=== PATIENT | female | born 1945 | race Caucasian/White ===

== ENCOUNTER 2023-04-19 09:29 | Inpatient (IN) | payer MEDICARE, BC, SELFPAY ==
[2023-04-19] VITALS (9 sets, daily range): BP systolic 114–152; BP diastolic 63–87; PULSE 83–96; RESP 16–18; TEMP 35.9–36.9; O2SAT 82–97; BMI 21.9
--- NOTE | 2023-04-19 09:53 | ED.NURSE ---
patient stated is a smoker of 1 ppd and is also a drinker of 1-2 drinks nightly. has decided to stop all medications and has not been taking for sometime. stated just got sick of taking medications and you go to the doctor and keep adding medications.
--- NOTE | 2023-04-19 10:11 | CRLHL7_ITS ---
For Patients: As a result of the Century Cures Act, medical imaging exams and procedure reports are released immediately into your electronic medical record. You may view this report before your referring provider. If you have questions, please contact your health care provider. Indication: Fall, left hip pain Technique: Chest 1 view Comparison: None Findings/Impression: Cardiovascular and mediastinum: Normal heart size with atherosclerotic calcification. Lungs and pleural space: Lungs are clear. No sign of infiltrate or mass. No sign of pleural effusion. No pneumothorax. Bones and soft tissues: No acute findings. Dictated by Kenton Cárdenas MD @ 04/19/2023 12:14:10 PM (Electronically Signed)
--- NOTE | 2023-04-19 10:11 | CRLHL7_ITS ---
For Patients: As a result of the Century Cures Act, medical imaging exams and procedure reports are released immediately into your electronic medical record. You may view this report before your referring provider. If you have questions, please contact your health care provider. INDICATION: Trauma. TECHNIQUE: Left hip and pelvic radiographs, 3 views. COMPARISON: None FINDINGS: Acute displaced intertrochanteric fracture of the left femur. The femoral head maintains its normal sphericity and is in normal alignment with the acetabulum. Acetabulum appear unremarkable bilateral. No diastasis of the pubic symphysis. The visualized sacroiliac joints appear unremarkable. No significant soft tissue edema or radiopaque foreign bodies. IMPRESSION: Acute displaced left femoral intertrochanteric fracture. Dictated by Kenney England MD @ 04/19/2023 12:22:10 PM (Electronically Signed)
[2023-04-19] MEDS: ONDANSETRON 2 MG/ML inj 4 MG IVP (10:22)
[2023-04-19] MEDS: fentaNYL 100 MCG/2 ML inj 25 MCG IVP ×2 (10:22→12:24)
[2023-04-19 10:23] LABS: Basophils Absolute Auto 0.01 K/uL (0.00-0.30); Basophils Percent Auto 0.1 % (0.0-3.0); Hematocrit 39.4 % (33.0-51.0); Hemoglobin* 12.9 gm/dL (12.0-16.0); Immature Granulocytes Abs Auto 0.01 K/uL (0.00-0.30); Immature Granulocytes Pct Auto 0.1 %; Lymphocytes Percent Auto 9.1 % (20-44); Mean Corpuscular HGB Conc 33 gm/dL (32-36); Mean Corpuscular Hemoglobin 32 pg (26-34); Mean Corpuscular Volume 97 fL (80-100); Monocytes Percent Auto 5.5 % (0.0-11.0); Neutrophils Percent Auto 85.2 % (42.0-72.0); Platelet Count* 173 K/uL (140-440); RDW Coefficient of Variation % 13.8 % (11.5-15.5); Red Blood Count 4.07 m/uL (4.00-5.20); White Blood Count* 9.13 K/uL (4.50-11.00)
[2023-04-19 10:27] LABS: Slide Review Reflex No
[2023-04-19 10:37] LABS: Chloride* 96 mmol/L (96-114); Potassium* 3.7 mmol/L (3.6-5.1); Sodium* 136 mmol/L (135-149)
[2023-04-19 10:40] LABS: Anion Gap 13 mEq/L (7-15); Blood Urea Nitrogen* 10 mg/dL (7-30); Carbon Dioxide* 27 mmol/L (20-32); Creatinine* 0.8 mg/dL (0.5-1.5); Est. Creatinine Clearance* 34.91; Estimated Glomerular Filt Rate 77 ml/min
[2023-04-19 10:41] LABS: Glucose* 111 mg/dL (60-115)
[2023-04-19 11:03] LABS: Troponin I* < 0.01 ng/mL (0.01-0.04)
--- NOTE | 2023-04-19 11:28 | ED.NURSE ---
Pt sleeping in the room at this time, O2 sats around ~87% on room air. Supplemental O2 NC applied at 1L. notified.
--- NOTE | 2023-04-19 12:38 | CRLHL7_ITS ---
For Patients: As a result of the Cures Act, medical imaging exams and procedure reports are released immediately into your electronic medical record. You may view this report before your referring provider. If you have questions, please contact your health care provider. HISTORY: Proximal femoral fracture. TECHNIQUE: Noncontrast CT of the left hip. COMPARISON: 04/19/2023. FINDINGS: There is an acute comminuted fracture of the left proximal femur with mixed intertrochanteric and femoral neck involvement. Fracture demonstrates up to approximately 1 cm of displacement at the level of the femoral neck and 1.5 cm displacement at the intertrochanteric level. There is no underlying lytic or sclerotic bone tumor apparent. No left acetabular fracture. There is degenerative arthrosis of the hip with chondrocalcinosis. Degenerative arthrosis of the right hip. No right proximal femoral or acetabular fracture is apparent on the axial whole pelvis images. Degenerative changes of the pubic symphysis with chondrocalcinosis. Degenerative changes of the sacroiliac joints. IMPRESSION: 1. Acute comminuted combined intertrochanteric and femoral neck fracture of the left proximal femur. 1 cm displacement at the level of the neck and 1.5 cm displacement the intertrochanteric region. 2. No underlying lytic or sclerotic bone tumor. 3. Left hip joint degenerative arthrosis. Dictated by Joce Yen MD @ 04/19/2023 1:42:52 PM Please note that all CT scans at this facility use dose modulation, iterative reconstruction, and/or weight-based dosing when appropriate to reduce radiation dose to as low as reasonably achievable. Dictated by: Joce Yen MD @ 04/19/2023 13:42:57 (Electronically Signed)
--- NOTE | 2023-04-19 13:41 | ED.NURSE ---
placed 18 fr staley to gravity and drained 25 cc of yellow urine. collected ua and sent to lab.
[2023-04-19 13:47] LABS: Appearance Urine Clear (Clear); Bilirubin Urine 2+ (Negative); Blood Urine 2+ (Negative); Color Urine Yellow (Yellow); Glucose Urine Negative (Negative); Ketones Urine 2+ (Negative); Leukocyte Esterase Urine 3+ (Negative); Nitrite Urine Negative (Negative); Protein Urine 1+ (Negative); Urobilinogen Urine 0.2 (0.2-1.0)
[2023-04-19 14:04] LABS: Amorphous Sediment Urine Few; Bacteria Urine Many; Squamous Epithelial Cell Urine Few (None-Few)
--- NOTE | 2023-04-19 14:56 | PM.IMCN1 ---
Date of Consult Patient: Meseret Patient Consult date: 04/12/23 Requesting Physician: Other (Emergency department) Primary Care Provider: Not a Local Provider Consult Narrative Reason for consult: Acute comminuted fx of left proximal femur, intertroch & femoral neck Narrative: Dominique Quiroz is a 77 year old woman who lives in her home with her . 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 Had severe pain in her left hip at that time. insisted that she come into the hospital for assessment but she refused. helped her to her bed and she has been in bed since. With her condition not improving, she finally agreed to come in. Denies loss of consciousness, striking her head, or sustaining any other injury. Has had increasing difficulty with walking particularly over the last 2 years. Needs a walker to ambulate. Her ambulation has been suboptimal since her 1st stroke a bout 15 years ago. According to patient and she has had at least 1 other stroke over the ensuing 15 years. Additionally patient has had alcohol dependence noted in her medical record at least since 2006. Presently she continues to drink at least 2 shots of vodka every night. Denies alcohol withdrawal. Presumably her unstable gait is affected by her longstanding use of alcohol. Is also being treated with vitamin B12 and folate. Presumably her gait is also affected by vitamin B12 and folate deficiency. Review of Systems Status of ROS: Reports: 10 or more systems reviewed and unremarkable except as noted in History and below Narrative: Denies chest heaviness, pressure, tightness, or pain. Denies syncope or near-syncope. Denies loss of consciousness. Denies cough. Acknowledges long-standing dyspnea with exertion. Denies dyspnea at rest. Denies paroxysmal nocturnal dyspnea orthopnea. Continues to smoke about 1 pack of cigarettes daily. states that she smokes about 1 carton of cigarettes per week. Denies dependent edema. Denies claudication. States bowel and bladder function are satisfactory. No other recent trauma or injury. No other recent infection. She is not certain about her weight loss but as far she knows it has been more stable, but this is only a guess. [facility] Medical History (Updated 04/19/23 @ 15:14 by Arturo Darby MD) Unstable gait ?R26.81 - Unsteadiness on feet (ICD-10) Weight loss ?R63.4 - Abnormal weight loss (ICD-10) Malnutrition ?E46 - Unspecified protein-calorie malnutrition (ICD-10) Closed fracture of first metacarpal bone of left hand ?S62.202A - Unspecified fracture of first metacarpal bone, left hand, initial encounter for closed fracture (ICD-10) Transient ischemic attack ?G45.9 - Transient cerebral ischemic attack, unspecified (ICD-10) Cyst and pseudocyst of pancreas ?K86.2 - Cyst of pancreas (ICD-10) ?K86.3 - Pseudocyst of pancreas (ICD-10) Hyperlipidemia ?E78.5 - Hyperlipidemia, unspecified (ICD-10) Tobacco dependence ?F17.200 - Nicotine dependence, unspecified, uncomplicated (ICD-10) Alcohol dependence ?F10.20 - Alcohol dependence, uncomplicated (ICD-10) Essential hypertension ?I10 - Essential (primary) hypertension (ICD-10) Major depressive disorder ?F32.9 - Major depressive disorder, single episode, unspecified (ICD-10) Folic acid deficiency ?E53.8 - Deficiency of other specified B group vitamins (ICD-10) Vitamin B12 deficiency ?E53.8 - Deficiency of other specified B group vitamins (ICD-10) Vitamin B12 deficiency ?E53.8 - Deficiency of other specified B group vitamins (ICD-10) Constipation ?K59.00 - Constipation, unspecified (ICD-10) Constipation ?K59.00 - Constipation, unspecified (ICD-10) Failure to thrive Hypomagnesemia ?E83.42 - Hypomagnesemia (ICD-10) Cerebral infarction ?I63.9 - Cerebral infarction, unspecified (ICD-10) Surgical History Status post breast lumpectomy ?Z98.890 - Other specified postprocedural states (ICD-10) History of colonoscopy ?Z98.890 - Other specified postprocedural states (ICD-10) H/O tubal ligation ?Z98.51 - Tubal ligation status (ICD-10) Family History Father Cancer Heart disease High blood pressure Mother Heart disease High blood pressure Osteoporosis Stroke Social History Smoking Status: Current every day smoker Do you use any of these nicotine containing products: None Second hand tobacco smoke exposure: No How often do you have a drink containing alcohol: 4 or more times a week How many standard drinks containing alcohol do you have on a typical day: 1 or 2 AUDIT-C Alcohol total score: 4 Non-prescribed substance use: denies use service: No Meds Home Medications and Allergies Home Medications Medication Instructions Recorded Confirmed Type atorvastatin 20 mg tablet 20 mg PO QPM 04/19/23 04/19/23 History cyanocobalamin (vitamin B-12) 1,000 mcg PO DAILY 04/19/23 04/19/23 History 1,000 mcg tablet mirtazapine 7.5 mg tablet 7.5 mg PO QPM 04/19/23 04/19/23 History Home Medication Comments: Folate 1 mg once daily according to the patient Allergies Allergy/AdvReac Type Severity Reaction Status Date / Time No Known Drug Allergies Allergy Verified 04/19/23 09:53 Exam Narrative: Exam Narrative: I examined patient the emergency department. Appears comfortable laying on the exam table. Vision and hearing are grossly normal. Alert and oriented to self, place, time, situation. Anxious but cooperative. Tympanic membranes normal. Midline nasal septum. Oropharynx benign with dentition in fair repair. Does not have icterus or conjunctival injection. Pupils are equally round reactive to light and accommodation. Extraocular muscles are intact. Conjugate gaze. Neck is supple. Midline trachea. No JVD hepatojugular reflux. No carotid bruits. Lungs are clear to auscultation without wheezing, rhonchi, or rales. Heart tones with regular rhythm, normal S1-S2, without murmur, gallop, or rub. Abdomen is thin with active bowel sounds, soft, nontender. Left leg is shorter than the right. Externally rotated left leg. Palpable pulses upper and lower extremities. No focal motor neurologic deficits. Const: Vital Signs, click to edit/add: Vital Signs - 24 hr 04/19/23 09:42 04/19/23 11:00 04/19/23 11:29 Temperature 96.7 F L Pulse Rate [Pulse Oximeter] 96 90 Respiratory Rate 16 16 Blood Pressure [Ri t Upper Arm] 131/87 135/75 Pulse Oximetry 93 90 94 Oxygen Delivery Me thod Room Air Room Air Nasal Cannula Oxygen Flow Rate 1 04/19/23 12:00 04/19/23 13:05 Temperature Pulse Rate [Pulse Oximeter] 83 85 Respiratory Rate 16 16 Blood Pressure [Ri ght Upper Arm] 143/75 H 123/68 Pulse Oximetry 97 94 Oxygen Delivery Me thod Nasal Cannula Nasal Cannula Oxygen Flow Rate 1 1 Documenting provider has reviewed patient's vital signs: yes Labs Labs: Short CBC 04/19/23 Range/Units 10:10 WBC 9.13 (4.50-11.00) K/uL Hgb 12.9 (12.0-16.0) gm/dL Hct 39.4 (33.0-51.0) % Plt Count 173 (140-440) K/uL BMP 04/19/23 10:10 Sodium 136 Potassium 3.7 Chloride 96 Carbon Dioxide 27 BUN 10 Creatinine 0.8 Glucose 111 Calcium 9.0 Cardiac Enzymes 04/19/23 Range/Units 10:10 Troponin I < 0.01 L (0.01-0.04) ng/mL Urine 04/19/23 Range/Units 13:39 Urine Color Yellow (Yellow) Urine Appearance Clear (Clear) Urine pH 6.0 (5.0-8.5) Ur Specific [place] 1.020 (1.000-1.030) Urine Protein 1+ A (Negative) Urine Glucose (UA) Negative (Negative) ECG Attestation: I personally reviewed and interpreted this ECG as follows: Prior ECG tracings: not available for review Interpretation: Normal sinus rhythm without ischemic changes. Imaging Chest x-ray: Attestation: I have reviewed the pertinent imaging results. Radiologist's impression: Lungs are hyperinflated with flattened diaphragms bilaterally suggesting underlying COPD and emphysema. No infiltrates, pleural effusions, pneumothorax, masses. Left hip and pelvic x-ray: Attestation: I have reviewed the pertinent imaging results. Radiologist's impression: FINDINGS: Acute displaced intertrochanteric fracture of the left femur. The femoral head maintains its normal sphericity and is in normal alignment with the acetabulum. Acetabulum appear unremarkable bilateral. No diastasis of the pubic symphysis. The visualized sacroiliac joints appear unremarkable. No significant soft tissue edema or radiopaque foreign bodies. IMPRESSION: Acute displaced left femoral intertrochanteric fracture. CT scan pelvis: Attestation: I have reviewed the pertinent imaging results. Radiologist's impression: IMPRESSION: 1. Acute comminuted combined intertrochanteric and femoral neck fracture of the left proximal femur. 1 cm displacement at the level of the neck and 1.5 cm displacement the intertrochanteric region. 2. No underlying lytic or sclerotic bone tumor. 3. Left hip joint degenerative arthrosis. Assessment and Plan Assessment and plan (1) Fracture of hip, left, closed: Problem comment: - fracture occurred on 04/17/2023, acute comminuted fracture of left proximal femur with mixed intertrochanteric and femoral neck involvement - patient presented for medical assessment on 04/19/2023 - await orthopedic surgery consultation and recommendations Status: Acute (2) Alcohol dependence: Problem comment: - since 2006 - 2 shots of vodka every night - CIWA protocol for now Status: Acute (3) Tobacco dependence: Problem comment: - 1 pack per day - nicotine patch for now Status: Acute (4) Weight loss: Problem comment: - dx 12/26/2022 - 01/10/2023 weight 50.9 kg, BMI 19.26 Status: Acute (5) Unstable gait: Problem comment: - Multifactorial: Alcohol dependence, fully deficiency, vitamin B12 deficiency, and possibly in association with history of stroke as well Status: Acute Plan 1. Await orthopedic surgery consultation and decision as to whether not they will be able to help this patient here in our hospital. If they decide they can then we will admit the patient to the hospital. If they decide that they cannot then the patient will need to be transferred from the emergency department to institution that will be able to help her. 2. Continue with supportive efforts. 3. Physical therapy and occupational therapy consultation. Dental Technology Advisor consultation. 4. Patient requests full resuscitation in the event of cardiopulmonary demise. She designates her as her power of litigation attorney associate for health should that be required. 5. Answered patient's and 's questions their satisfaction. They are agreeable.
--- NOTE | 2023-04-19 15:03 | ED.GENADULT ---
HPI - General Adult General Date Seen: 04/19/23 Chief complaint: Hip Injury/Pain Stated complaint: fall Time Seen by Provider: 04/19/23 09:51 History of Present Illness HPI narrative: This is a 77-year-old female presenting to the ER today with her for evaluation of left hip pain. History is obtained in part from the patient and supplemented by her . She does have a history of previous strokes and generalized weakness. She normally walks at home with a walker. She and her live independently. Two nights ago on Saturday night (not , as they initially reported) she was going to the bathroom. Her legs got weak and gave out and she fell to the floor. She hurt her left hip. She was not able to walk on her left leg because of pain. Her assisted her in getting up into a chair. She has been having a lot of hip pain since then and has not been able to get out of a chair. She did not get up to go to the bathroom yesterday but did eat some meals in her chair. She still not able to walk today. She was resistant to coming to doctor yesterday but today her finally for should come in. She has a small scrape on her right elbow that occurred when her was assisting her to the chair but no other injuries from the fall. Specifically no headache or neck pain. No chest pain. No rib pain. No back pain. No abdominal pain. No numbness or tingling in her leg. She does has lot of hip pain when she tries to move it. Related Data Home Medications Medication Instructions Recorded Confirmed atorvastatin 20 mg tablet 20 mg PO QPM 04/19/23 04/19/23 cyanocobalamin (vitamin B-12) 1,000 mcg PO DAILY 04/19/23 04/19/23 1,000 mcg tablet mirtazapine 7.5 mg tablet 7.5 mg PO QPM 04/19/23 04/19/23 Allergies Allergy/AdvReac Type Severity Reaction Status Date / Time No Known Drug Allergies Allergy Verified 04/19/23 09:53 [facility] Medical History (Updated 04/19/23 @ 15:14 by Arturo Darby MD) Unstable gait ?R26.81 - Unsteadiness on feet (ICD-10) Weight loss ?R63.4 - Abnormal weight loss (ICD-10) Malnutrition ?E46 - Unspecified protein-calorie malnutrition (ICD-10) Closed fracture of first metacarpal bone of left hand ?S62.202A - Unspecified fracture of first metacarpal bone, left hand, initial encounter for closed fracture (ICD-10) Transient ischemic attack ?G45.9 - Transient cerebral ischemic attack, unspecified (ICD-10) Cyst and pseudocyst of pancreas ?K86.2 - Cyst of pancreas (ICD-10) ?K86.3 - Pseudocyst of pancreas (ICD-10) Hyperlipidemia ?E78.5 - Hyperlipidemia, unspecified (ICD-10) Tobacco dependence ?F17.200 - Nicotine dependence, unspecified, uncomplicated (ICD-10) Alcohol dependence ?F10.20 - Alcohol dependence, uncomplicated (ICD-10) Essential hypertension ?I10 - Essential (primary) hypertension (ICD-10) Major depressive disorder ?F32.9 - Major depressive disorder, single episode, unspecified (ICD-10) Folic acid deficiency ?E53.8 - Deficiency of other specified B group vitamins (ICD-10) Vitamin B12 deficiency ?E53.8 - Deficiency of other specified B group vitamins (ICD-10) Vitamin B12 deficiency ?E53.8 - Deficiency of other specified B group vitamins (ICD-10) Constipation ?K59.00 - Constipation, unspecified (ICD-10) Constipation ?K59.00 - Constipation, unspecified (ICD-10) Failure to thrive Hypomagnesemia ?E83.42 - Hypomagnesemia (ICD-10) Cerebral infarction ?I63.9 - Cerebral infarction, unspecified (ICD-10) Surgical History Status post breast lumpectomy ?Z98.890 - Other specified postprocedural states (ICD-10) History of colonoscopy ?Z98.890 - Other specified postprocedural states (ICD-10) H/O tubal ligation ?Z98.51 - Tubal ligation status (ICD-10) Family History Father Cancer Heart disease High blood pressure Mother Heart disease High blood pressure Osteoporosis Stroke Social History Smoking Status: Current every day smoker Do you use any of these nicotine containing products: None Second hand tobacco smoke exposure: No How often do you have a drink containing alcohol: 4 or more times a week How many standard drinks containing alcohol do you have on a typical day: 1 or 2 AUDIT-C Alcohol total score: 4 Non-prescribed substance use: denies use service: No Exam Narrative: Exam Narrative: Constitutional: Appears well-developed and well-nourished. Alert. Conversant, but uncomfortable. Overall, Non toxic. HENT: Head: Atraumatic. Nose: Nose normal. Mouth/Throat: Oral mucosa is clear and moist. no trismus. Pharynx normal. Tonsils symmetric. No tonsillar enlargement, erythema, or exudate. Eyes: Conjunctivae normal. EOM normal. Pupils equal, round, and reactive to light. No scleral icterus. Neck: Normal range of motion. Neck supple. No tracheal deviation present. Cardiovascular: Normal rate, regular rhythm. No gallop. No friction rub. No murmur heard. Symmetric radial and DP artery pulses . Normal cap refill in her injured left leg Pulmonary/Chest: Effort normal. No stridor. No respiratory distress. No wheezes. No rales. No rhonchi . No tenderness. Abdominal: Soft. Bowel sounds normal. No distension. No mass. No tenderness. No rebound. No guarding. Musculoskeletal: RUE: Normal range of motion. No tenderness. No deformity LLE: Left hip tenderness. Distal femur, knee, lower leg, ankle, foot are nontender. She has foreshortening of her left he will suspicious for left hip fracture. No definite internal or external rotation. RLE: Normal range of motion. No edema. No tenderness. No deformity LUE: Normal range of motion. No edema. No tenderness. No deformity Lymph: No cervical adenopathy. Neurological: Alert and oriented to person, place, and time. Normal strength. CN II-VII intact. No sensory deficit. GCS eye subscore is 4. GCS verbal subscore is 5. GCS motor subscore is 6. Normal coordination . Intact distal sensory function and toe wiggling and plantar flexion/dorsiflexion her ankle injury left leg. Skin: Skin is warm and dry. No rash noted. No pallor. Normal capillary refill. Psychiatric: Normal mood. Normal affect. Const: Vital Signs, click to edit/add: Vital Signs - 24 hr 04/19/23 09:42 04/19/23 11:00 04/19/23 11:29 Temperature 96.7 F L Pulse Rate [Pulse Oximeter] 96 90 Respiratory Rate 16 16 Blood Pressure [Ri t Upper Arm] 131/87 135/75 Pulse Oximetry 93 90 94 Oxygen Delivery Me thod Room Air Room Air Nasal Cannula Oxygen Flow Rate 1 04/19/23 12:00 04/19/23 13:05 Temperature Pulse Rate [Pulse Oximeter] 83 85 Respiratory Rate 16 16 Blood Pressure [Ri ght Upper Arm] 143/75 H 123/68 Pulse Oximetry 97 94 Oxygen Delivery Me thod Nasal Cannula Nasal Cannula Oxygen Flow Rate 1 1 Course Vital Signs Vital signs: Initial Vital Signs Temperature 96.7 F L 04/19/23 09:42 Temperature Source Temporal Artery Scan 04/19/23 09:42 Pulse Rate 96 04/19/23 09:42 Respiratory Rate 16 04/19/23 09:42 Blood Pressure 131/87 04/19/23 09:42 Blood Pressure Mean 101 04/19/23 09:42 Blood Pressure Position Supine 04/19/23 09:42 Pulse Oximetry 93 04/19/23 09:42 Oxygen Delivery Method Room Air 04/19/23 09:42 Vital Signs Temperature 96.7 F L 04/19/23 09:42 Pulse Rate 96 04/19/23 09:42 Respiratory Rate 16 04/19/23 09:42 Blood Pressure 131/87 04/19/23 09:42 Pulse Oximetry 93 04/19/23 09:42 Oxygen Delivery Method Room Air 04/19/23 09:42 Temperature 96.7 F L 04/19/23 09:42 Pulse Rate 89 04/19/23 15:32 Respiratory Rate 16 04/19/23 13:05 Blood Pressure 139/77 04/19/23 15:32 Pulse Oximetry 96 04/19/23 15:32 Oxygen Delivery Method Nasal Cannula 04/19/23 15:32 Oxygen Flow Rate 1 04/19/23 15:32 Medications Administered Medications: Discontinued Medications Generic Name Dose Route Start Last Admin Trade Name Freq PRN Reason Stop Dose Admin Fentanyl 25 mcg 04/19/23 10:11 04/19/23 10:22 Fentanyl 100 Mcg/2 Ml Inj IVP 04/19/23 10:12 25 mcg ONCE ONE Administration Fentanyl 25 mcg 04/19/23 11:54 04/19/23 12:24 Fentanyl 100 Mcg/2 Ml Inj IVP 04/19/23 11:55 25 mcg ONCE ONE Administration Ondansetron HCl 4 mg 04/19/23 10:11 04/19/23 10:22 Ondansetron 2 Mg/Ml Inj IVP 04/19/23 10:12 4 mg ONCE ONE Administration Medical Decision Making [facility] Narrative Medical decision making narrative: Very pleasant frail 77-year-old female presenting to the ER today with a ground level fall that occurred 2 days ago when she was walking to the bathroom at night. She has been unable to bear weight on her left hip since then. Clinical exam and x-rays confirm a comminuted left femoral neck and greater trochanter fracture of that left hip. The remainder of her head to try or trauma exam is negative. She is clear that she did not hit her head, has no headache, neck pain, or other traumatic injuries. She is neurovascularly intact in her left leg. She had adequate pain control with 2 small doses of fentanyl-25 mcg each, given here in the ER. Discussed her x-ray imaging with Orthopedics. Initially with the PAs and subsequently with physician, Dr. Neri. They requested additional imaging with extra hip x-ray views and ultimately I hip CT. Dr. Neri indicates that this is a complex unusual fracture pattern but should be operable here at [place]. Plan would be for her to have her operation tomorrow morning. Discussed with hospitalist, Dr. Sheth, who came to the ER to evaluate the patient and will accept for admission. Screening EKG shows sinus rhythm but no definite ischemia. Lab Data Labs: Lab Results 04/19/23 04/19/23 Range/Units 10:10 13:39 WBC 9.13 (4.50-11.00) K/uL RBC 4.07 (4.00-5.20) m/uL Hgb 12.9 (12.0-16.0) gm/dL Hct 39.4 (33.0-51.0) % MCV 97 (80-100) fL MCH 32 (26-34) pg MCHC 33 (32-36) gm/dL RDW Coeff of Penny 13.8 (11.5-15.5) % Plt Count 173 (140-440) K/uL Neut % (Auto) 85.2 H (42.0-72.0) % Lymph % (Auto) 9.1 L (20-44) % [place] % (Auto) 5.5 (0.0-11.0) % Eos % (Auto) 0.0 (0.0-7.0) % Baso % (Auto) 0.1 (0.0-3.0) % Neut # (Auto) 7.80 H (1.7-7.0) K/uL Lymph # (Auto) 0.80 L (0.90-2.90) K/uL [place] # (Auto) 0.50 (0.00-0.90) K/UL Eos # (Auto) 0.00 (0.00-0.50) K/uL Baso # (Auto) 0.01 (0.00-0.30) K/uL Abs Immat Gran (auto) 0.01 (0.00-0.30) K/uL Imm/Tot Granulo (auto) 0.1 % Sodium 136 (135-149) mmol/L Potassium 3.7 (3.6-5.1) mmol/L Chloride 96 (96-114) mmol/L Carbon Dioxide 27 (20-32) mmol/L Anion Gap 13 (7-15) mEq/L BUN 10 (7-30) mg/dL Creatinine 0.8 (0.5-1.5) mg/dL Estimated Creat Clear 34.91 Estimated GFR 77 ml/min Glucose 111 (60-115) mg/dL Calcium 9.0 (8.4-10.6) mg/dL Troponin I < 0.01 L (0.01-0.04) ng/mL Urine Color Yellow (Yellow) Urine Appearance Clear (Clear) Urine pH 6.0 (5.0-8.5) Ur Specific [place] 1.020 (1.000-1.030) Urine Protein 1+ A (Negative) Urine Glucose (UA) Negative (Negative) Urine Ketones 2+ A (Negative) Urine Blood 2+ A (Negative) Urine Nitrite Negative (Negative) Urine Bilirubin 2+ A (Negative) Urine Urobilinogen 0.2 (0.2-1.0) Ur Leukocyte Esterase 3+ A (Negative) Urine RBC 5-10 A (0-2) Urine WBC 2-5 (0-5) Ur Squamous Epith Cells Few (None-Few) Amorphous Sediment Few A (None) Urine Bacteria Many A (None) Imaging Data Chest x-ray: Attestation: I have reviewed the pertinent imaging results. Radiologist's impression: Findings/Impression: Cardiovascular and mediastinum: Normal heart size with atherosclerotic calcification. Lungs and pleural space: Lungs are clear. No sign of infiltrate or mass. No sign of pleural effusion. No pneumothorax. Bones and soft tissues: No acute findings. X-ray left hip: Attestation: I have reviewed the pertinent imaging results. Radiologist's impression: IMPRESSION: Acute displaced left femoral intertrochanteric fracture. CT left hip: Attestation: I have reviewed the pertinent imaging results. Radiologist's impression: IMPRESSION: 1. Acute comminuted combined intertrochanteric and femoral neck fracture of the left proximal femur. 1 cm displacement at the level of the neck and 1.5 cm displacement the intertrochanteric region. 2. No underlying lytic or sclerotic bone tumor. 3. Left hip joint degenerative arthrosis. Discharge Plan Discharge Clinical Impression: Fracture of hip, left, closed Patient Disposition: Admitted As Inpatient Condition: Stable
--- NOTE | 2023-04-19 15:30 | ED.NURSE ---
Report called to M/S RN.
[2023-04-19] MEDS: HYDROmorphone 0.5 mg/0.5 ml inj IVP ×2 (15:59→23:09)
[2023-04-19] MEDS: NICOTINE 14 mg PATCH 1 PATCH TRANSDERMA (15:59)
--- NOTE | 2023-04-19 16:25 | P.ORCN_ITS ---
History of Present Illness HPI Time Seen by Provider: 15:00 Date Seen: 04/19/23 Consult date: 04/19/23 Requesting physician: Arturo Darby Chief complaint: fall Narrative: Dominique is a 77-year-old female who presented to the ER today with her for evaluation of left hip pain. Patient states that pain developed early morning after she sustained a ground level fall and fell onto her left hip. Following the injury, she had significant hip pain with any attempted weight-bearing. She was not able to bear weight and was helped to bed by her . Due to persistent left hip pain that was not improving, she was brought to the emergency room today where x-rays revealed displaced left hip fracture involving the femoral neck in intertrochanteric region of the femur. Prior to the injury, she normally uses a walker for assistance with ambulation in her home. Currently pain is adequately controlled unless she attempts to move her left hip. She denies any other injuries. [facility] Medical History (Updated 04/19/23 @ 16:35 by Raffaele Neri MD) Unstable gait ?R26.81 - Unsteadiness on feet (ICD-10) Weight loss ?R63.4 - Abnormal weight loss (ICD-10) Malnutrition ?E46 - Unspecified protein-calorie malnutrition (ICD-10) Closed fracture of first metacarpal bone of left hand ?S62.202A - Unspecified fracture of first metacarpal bone, left hand, initial encounter for closed fracture (ICD-10) Transient ischemic attack ?G45.9 - Transient cerebral ischemic attack, unspecified (ICD-10) Cyst and pseudocyst of pancreas ?K86.2 - Cyst of pancreas (ICD-10) ?K86.3 - Pseudocyst of pancreas (ICD-10) Hyperlipidemia ?E78.5 - Hyperlipidemia, unspecified (ICD-10) Tobacco dependence ?F17.200 - Nicotine dependence, unspecified, uncomplicated (ICD-10) Alcohol dependence ?F10.20 - Alcohol dependence, uncomplicated (ICD-10) Essential hypertension ?I10 - Essential (primary) hypertension (ICD-10) Major depressive disorder ?F32.9 - Major depressive disorder, single episode, unspecified (ICD-10) Folic acid deficiency ?E53.8 - Deficiency of other specified B group vitamins (ICD-10) Vitamin B12 deficiency ?E53.8 - Deficiency of other specified B group vitamins (ICD-10) Vitamin B12 deficiency ?E53.8 - Deficiency of other specified B group vitamins (ICD-10) Constipation ?K59.00 - Constipation, unspecified (ICD-10) Constipation ?K59.00 - Constipation, unspecified (ICD-10) Failure to thrive Hypomagnesemia ?E83.42 - Hypomagnesemia (ICD-10) Cerebral infarction ?I63.9 - Cerebral infarction, unspecified (ICD-10) Surgical History Status post breast lumpectomy ?Z98.890 - Other specified postprocedural states (ICD-10) History of colonoscopy ?Z98.890 - Other specified postprocedural states (ICD-10) H/O tubal ligation ?Z98.51 - Tubal ligation status (ICD-10) Family History Father Cancer Heart disease High blood pressure Mother Heart disease High blood pressure Osteoporosis Stroke Social History Smoking Status: Current every day smoker Do you use any of these nicotine containing products: None Second hand tobacco smoke exposure: No How often do you have a drink containing alcohol: 4 or more times a week How many standard drinks containing alcohol do you have on a typical day: 1 or 2 AUDIT-C Alcohol total score: 4 Non-prescribed substance use: denies use service: No Meds Home Medications and Allergies Home Medications Medication Instructions Recorded Confirmed Type atorvastatin 20 mg tablet 20 mg PO QPM 04/19/23 04/19/23 History cyanocobalamin (vitamin B-12) 1,000 mcg PO DAILY 04/19/23 04/19/23 History 1,000 mcg tablet mirtazapine 7.5 mg tablet 7.5 mg PO QPM 04/19/23 04/19/23 History Allergies Allergy/AdvReac Type Severity Reaction Status Date / Time No Known Drug Allergies Allergy Verified 04/19/23 09:53 Ortho Exam Narrative Exam Narrative: General: Alert and oriented. In no apparent distress. Musculoskeletal: Left lower extremity is shortened and externally rotated. Unable to move hip secondary to pain. Sensation was intact to light touch throughout the dorsal and plantar aspects of the feet bilaterally. EHL, tibialis anterior, gastrocnemius/soleus were intact bilaterally. 2+ DP pulses bilaterally. Const Vital Signs, click to edit/add: Vital Signs - 24 hr 04/19/23 09:42 04/19/23 11:00 04/19/23 11:29 Temperature 96.7 F L Pulse Rate [Pulse Oximeter] 96 90 Respiratory Rate 16 16 Blood Pressure [Right Upper Arm] 131/87 135/75 Pulse Oximetry 93 90 94 Oxygen Delivery Method Room Air Room Air Nasal Cannula Oxygen Flow Rate 1 04/19/23 12:00 04/19/23 13:05 04/19/23 15:32 Temperature Pulse Rate [Pulse Oximeter] 83 85 89 Respiratory Rate 16 16 Blood Pressure [Right Upper Arm] 143/75 H 123/68 139/77 Pulse Oximetry 97 94 96 Oxygen Delivery Method Nasal Cannula Nasal Cannula Nasal Cannula Oxygen Flow Rate 1 1 1 Results Labs Labs: Laboratory Results - last 48 hr 04/19/23 04/19/23 10:10 13:39 WBC 9.13 RBC 4.07 Hgb 12.9 Hct 39.4 MCV 97 MCH 32 MCHC 33 RDW Coeff of Penny 13.8 Plt Count 173 Neut % (Auto) 85.2 H Lymph % (Auto) 9.1 L [place] % (Auto) 5.5 Eos % (Auto) 0.0 Baso % (Auto) 0.1 Neut # (Auto) 7.80 H Lymph # (Auto) 0.80 L [place] # (Auto) 0.50 Eos # (Auto) 0.00 Baso # (Auto) 0.01 Abs Immat Gran (auto) 0.01 Imm/Tot Granulo (auto) 0.1 Sodium 136 Potassium 3.7 Chloride 96 Carbon Dioxide 27 Anion Gap 13 BUN 10 Creatinine 0.8 Estimated Creat Clear 34.91 Estimated GFR 77 Glucose 111 Calcium 9.0 Troponin I < 0.01 L Urine Color Yellow Urine Appearance Clear Urine pH 6.0 Ur Specific [place] 1.020 Urine Protein 1+ A Urine Glucose (UA) Negative Urine Ketones 2+ A Urine Blood 2+ A Urine Nitrite Negative Urine Bilirubin 2+ A Urine Urobilinogen 0.2 Ur Leukocyte Esterase 3+ A Urine RBC 5-10 A Urine WBC 2-5 Ur Squamous Epith Cells Few Amorphous Sediment Few A Urine Bacteria Many A Diagnostic results Additional Comments: Left hip, and pelvis x-rays and left hip CT scan were reviewed. These were demonstrated a comminuted combined intertrochanteric and femoral neck fracture of the left proximal femur. Mild degenerative changes of both hips. Assessment and Plan Assessment and plan (1) Fracture of hip, left, closed: Problem comment: - fracture occurred on 04/17/2023, acute comminuted fracture of left proximal femur with mixed intertrochanteric and femoral neck involvement - patient presented for medical assessment on 04/19/2023 Status: Acute Assessment and Plan: Patient has displaced, comminuted, combined femoral neck and intertrochanteric fracture of the left hip. Risks and benefits of operative treatment and al ternative to surgery were discussed with the patient and her . Recommendation was subsequently made for surgical intervention consisting of left hip closed reduction internal fixation with a cephalomedullary hip screw to allow for early mobilization and advancement of weight-bearing, decreased pain, and healing of the fracture. Risks of surgery to include, but not limited to, infection, neurovascular injury, malunion, nonunion, hip AVN, DVT, pulmonary embolism, heart attack, stroke, and even were discussed with patient and her all questions were answered. After discussion they were in agreement with plan to proceed with surgery. Patient will be admitted to the hospitalist service this afternoon/evening. She is to remain on bedrest overnight with plan for surgery tomorrow morning. She is to be NPO after midnight for anticipated surgery. Total time spent: Total time spent is greater than 50% in coordination of care (as documented) at patient's floor/unit and/or counseling patient: (2) Alcohol dependence: Problem comment: - since 2006 - 2 shots of vodka every night - CIWA protocol for now Status: Acute Total time spent: Total time spent is greater than 50% in coordination of care (as documented) at patient's floor/unit and/or counseling patient: (3) Tobacco dependence: Problem comment: - 1 pack per day - nicotine patch for now Status: Acute Total time spent: Total time spent is greater than 50% in coordination of care (as documented) at patient's floor/unit and/or counseling patient: (4) Weight loss: Problem comment: - dx 12/26/2022 - 01/10/2023 weight 50.9 kg, BMI 19.26 Status: Acute Total time spent: Total time spent is greater than 50% in coordination of care (as documented) at patient's floor/unit and/or counseling patient: (5) Unstable gait: Problem comment: - Multifactorial: Alcohol dependence, fully deficiency, vitamin B12 deficiency, and possibly in association with history of stroke as well Status: Acute Total time spent: Total time spent is greater than 50% in coordination of care (as documented) at patient's floor/unit and/or counseling patient:
[2023-04-19] MEDS: LACTATED RINGERS 500 ML 500 ML IV (16:45)
[2023-04-19] MEDS: LACTATED RINGERS 1000 ML 1,000 ML 75 ML IV (16:45)
[2023-04-19] MEDS: MIRTAZAPINE 15 MG TABLET 7.5 MG PO ×2 (17:36→20:29)
[2023-04-19] MEDS: ACETAMINOPHEN 325 MG TABLET 650 MG PO (17:36)
[2023-04-19] MEDS: THIAMINE 100 MG TABLET PO (17:36)
--- NOTE | 2023-04-19 18:22 | PC.NURSE ---
Admit [id number]- Patient arrives to unit via stretcher at approximately 1600. Patient given IV pain medication before moving from stretcher to bed. She states she does not have pain when she is not moving. She declines ice pack. at bedside during admission. She is sleepy, rousable. Remains on 1L O2 with saturations ~90%.
[2023-04-19] MEDS: ATORVASTATIN 10 MG TABLET 20 MG PO (20:29)
[2023-04-20] VITALS (30 sets, daily range): BP systolic 93–155; BP diastolic 44–115; PULSE 67–106; RESP 11–24; TEMP 36.2–36.8; O2SAT 88–97
--- NOTE | 2023-04-20 00:40 | PC.NURSE ---
[employer] OFFICER- asked to evaluate pt secondary to low sats lowewst 67% on 3L with large amounts of encouragement to take deep breaths and cough per HS and primary care RN. AWARE
--- NOTE | 2023-04-20 00:42 | PC.NURSE ---
CONTINUED charting for [employer]. notified of things to increase pt to [facility]. Pt has been getting narcs for the pain in her left hip. Scheduled for ORIF this am. Neb given apoorva with out improvement. Pt remains with congested non productive cough which she is unable to expectorate. Merna sat still mid 80. Will OC .
--- NOTE | 2023-04-20 00:46 | CRLHL7_ITS ---
For Patients: As a result of the Cures Act, medical imaging exams and procedure reports are released immediately into your electronic medical record. You may view this report before your referring provider. If you have questions, please contact your health care provider. INDICATION: Low O2 sats. TECHNIQUE: Chest 1 view. COMPARISON: Apr 19, 2023. FINDINGS: Cardiovascular and mediastinum: Cardiomediastinal silhouette is within normal limits. Calcific atherosclerosis of the aorta Lungs and pleural spaces: Right lower lung zone subtle opacities. No evidence of pleural effusion. No pneumothorax identified. Bones and soft tissues: Unremarkable for age. IMPRESSION: Subtle right lower lung zone opacities, may reflect aspiration, infection or atelectasis. Dictated by Manuel Tang MD @ 04/20/2023 1:08:59 AM (Electronically Signed)
[2023-04-20] MEDS: IPRAT-ALBUT 0.5-2.5 MG/3 ML NEB 1 NEB IH ×4 (00:52→18:08)
--- NOTE | 2023-04-20 00:54 | W.THPRO_ITS ---
Progress Note: A&P Assessment and plan (1) Acute respiratory failure: Status: Acute (2) Atelectasis: Status: Acute (3) COPD (chronic obstructive pulmonary disease): Status: Acute Plan Acute respiratory failure with hypoxia Suspected COPD exacerbation Hypoxia with SpO2 73% on 4 lpm w/ good pleth Suspected bronchitis versus early pneumonia based on CXR although atelectasis also a possibility Multifactorial decreased air movement suggested some level of COPD exacerbation Will treat COPD with Solu-Medrol 40 mg x 1 will defer decision regarding additional steroids to a.m. team Scheduled DuoNebs every 6 hours with as needed albuterol Mucinex 600 mg twice daily Obtain ABG, if significant CO2 retention will need BiPAP (should also help atelectasis) otherwise heated high flow Azithromycin 500 mg every 24 hours Ceftriaxone 2 g Q24 hrous ABG 7.4/50/57, compensated suggest more likely atelectasis/infiltrate playing a role in hypoxia rather than severe COPD. Will continue to treat COPD. Start with BiPAP to help atelectasis but will try and transition quickly to heated high flow until outpatient continue bronchial hygiene Alcohol use disorder No signs of withdrawal currently Hip fracture Will try and optimize but may need to delay the surgical repair Full Code Critical care time for management of acute respiratory failure with severe hypoxia requiring aggressive respiratory support. Risk of deterioration with mortality and endorgan damage. Time documented soley spent managing the above patient. Included interpretation of bedside monitor, chest x-ray, ordering labs. Additional respiratory support. As well as reviewing prior records. Total critical care time 37 minutes 0:48 - 1:25 Telehealth Hospitalist-PN: Sub Subjective Interval History: Dominique Quiroz is seen as an Interactive Telehealth visit. Dominique Quiroz is a 77 year old female who was admitted for fall acute comminuted fractures of the left proximal femur, intertrochanteric and femoral neck. She has a past medical history notable for TIA alcohol use disorder, tobacco use disorder, suspected COPD, hypertension. Called for emergent evaluation due to worsening respiratory failure. Initially on 2 L/min with sats in the 90s however she developed worsening respiratory failure with hypoxia in the 60s despite 4 L/min via nasal cannula. The patient does not note any dyspnea but is somewhat sleepy. She denies any chest pain. She does have some hip pain. No fevers or chills. Per nursing she has a weak cough but significant sputum production that she has difficulty clearing Exam Narrative Exam Narrative: Physical Exam GENERAL: ?vital signs reviewed, chronically-ill apearing female, in no distress HEART: Regular rate and rhythm without any rubs, murmurs, or gallops. LUNGS: Tachypneic with decreased air movement. Diffuse rhonchi in all lung ramirez but most notable in upper airways ABDOMEN: Observation from nurse assisted exam, abdomen appears soft, nontender, and nondistended EXTREMITIES: Strength and sensation is observed to be grossly within normal limits in the upper and lower extremities.? No focal strength deficit is observed. SKIN:? Observed warm and dry with color normal Const Vital Signs, click to edit/add: Vital Signs - 24 hr 04/19/23 09:42 04/19/23 11:00 04/19/23 11:29 Temperature 96.7 F L Pulse Rate [Left Dorsalis Pedis] Pulse Rate [Pulse Oximeter] 96 90 Respiratory Rate 16 16 Blood Pressure [Left Arm] Blood Pressure [Right Upper Arm] 131/87 135/75 Pulse Oximetry 93 90 94 Oxygen Delivery Method Room Air Room Air Nasal Cannula Oxygen Flow Rate 1 04/19/23 12:00 04/19/23 13:05 04/19/23 15:32 Temperature Pulse Rate [Left Dorsalis Pedis] Pulse Rate [Pulse Oximeter] 83 85 89 Respiratory Rate 16 16 Blood Pressure [Left Arm] Blood Pressure [Right Upper Arm] 143/75 H 123/68 139/77 Pulse Oximetry 97 94 96 Oxygen Delivery Method Nasal Cannula Nasal Cannula Nasal Cannula Oxygen Flow Rate 1 1 1 04/19/23 16:56 04/19/23 19:00 04/19/23 23:00 Temperature 98.4 F Pulse Rate [Left Dorsalis Pedis] 94 90 90 Pulse Rate [Pulse Oximeter] Respiratory Rate 16 18 18 Blood Pressure [Left Arm] 130/75 114/63 Blood Pressure [Right Upper Arm] Pulse Oximetry 91 88 Oxygen Delivery Method Nasal Cannula Nasal Cannula Oxygen Flow Rate 1 1 04/19/23 23:00 04/19/23 23:00 Temperature 98 F Pulse Rate [Left Dorsalis Pedis] 90 Pulse Rate [Pulse Oximeter] Respiratory Rate 18 16 Blood Pressure [Left Arm] 152/74 H Blood Pressure [Right Upper Arm] Pulse Oximetry 90 90 Oxygen Delivery Method Nasal Cannula Nasal Cannula Oxygen Flow Rate 2 2 Labs Labs: Laboratory Results - last 24 hr 04/19/23 04/19/23 10:10 13:39 WBC 9.13 RBC 4.07 Hgb 12.9 Hct 39.4 MCV 97 MCH 32 MCHC 33 RDW Coeff of Penny 13.8 Plt Count 173 Neut % (Auto) 85.2 H Lymph % (Auto) 9.1 L [place] % (Auto) 5.5 Eos % (Auto) 0.0 Baso % (Auto) 0.1 Neut # (Auto) 7.80 H Lymph # (Auto) 0.80 L [place] # (Auto) 0.50 Eos # (Auto) 0.00 Baso # (Auto) 0.01 Abs Immat Gran (auto) 0.01 Imm/Tot Granulo (auto) 0.1 Sodium 136 Potassium 3.7 Chloride 96 Carbon Dioxide 27 Anion Gap 13 BUN 10 Creatinine 0.8 Estimated Creat Clear 34.91 Estimated GFR 77 Glucose 111 Calcium 9.0 Troponin I < 0.01 L Urine Color Yellow Urine Appearance Clear Urine pH 6.0 Ur Specific [place] 1.020 Urine Protein 1+ A Urine Glucose (UA) Negative Urine Ketones 2+ A Urine Blood 2+ A Urine Nitrite Negative Urine Bilirubin 2+ A Urine Urobilinogen 0.2 Ur Leukocyte Esterase 3+ A Urine RBC 5-10 A Urine WBC 2-5 Ur Squamous Epith Cells Few Amorphous Sediment Few A Urine Bacteria Many A Imaging Chest x-ray: Attestation: I have reviewed the pertinent imaging results. (Chest x-ray with increased opacity in the right lower lobe. Hyperinflated lungs) Radiologist's impression: PENDING Telehealth: Statement Statement Telehealth Visit: Today's History and Physical is provided via interactive telehealth by Abdiel Rosas MD.? Patient is located at [facility].? Provider is located at [facility].? Nursing staff assisted with the patient's exam. The visit being done today meets criteria for a telehealth visit and the patient or patient?s parent/guardian is aware the visit is a telehealth visit. Camera Start Time: 00:48 Camera End Time: 00:56
[2023-04-20 01:06] LABS: ABG PCO2 50 mmHG (35-45); Carboxyhemoglobin* 1.4 % (0.0-5.0); HCO3 ABG 31 mmol/L (21-28); Oxygen Saturation ABG 89 % (92-100); TCO2 ABG 29 mmol/l (21-30)
--- NOTE | 2023-04-20 01:22 | PC.NURSE ---
0100-telehealth monitor in room. MD orders as noted. Lab drawing ABD. Pt moved to CCU3 for bipap with all belongings. Placed on FIO2 50% with large FM-there are no medium in RT room or ED. All cares explained to pt. Asks questions as needed. Sats improved to 90%.
--- NOTE | 2023-04-20 01:33 | PC.NURSE ---
0120 Dr Rosas returning [facility] call for paln of care tonight. Per xray has atelectasis but not too bad. ABG not retaining too much CO2. Keep on bipap until 0230 and then switch over to high flow. Primary care/chg all aware.
[2023-04-20] MEDS: cefTRIAXone 2 GM in 0.9 % SODIUM CHLORIDE Mini-bag 100 ML IVPB (02:28)
[2023-04-20] MEDS: guaiFENesin 600 MG TAB.ER.12H PO ×2 (02:28→20:21)
[2023-04-20] MEDS: METHYLPREDNISOLONE SOD SUCC 40 MG/ML IVP (02:51)
[2023-04-20] MEDS: AZITHROMYCIN 500 MG in 0.9 % SODIUM CHLORIDE 250 ml 250 ML 255 MG IVPB (02:51)
[2023-04-20] MEDS: LACTATED RINGERS 1000 ML 1,000 ML 75 ML IV ×3 (06:10→22:52)
--- NOTE | 2023-04-20 06:32 | PC.NURSE ---
SHIFT NOTE : Pt is alert and oriented with periodic confusion, at one point the pt asked if she was at home and to check the front door. Pt is easily redirected. Pt initially on 1L O2 PNC with oxygen saturations in the mid 80?s, increased to 2L with oxygen saturations 88-90% with help of C&DB. Pt fell asleep and at 2300 VS checks pt oxygen saturations were mid 70?s to mid 80?s despite encouragement to C&DB, pt had a lot of phlegm that she was unable to get out. updated and new orders were received including a neb, pt did not improve after the neb and oxygen saturations were mid to high 70?s, MD updated again and order received to make pt CCU status and place on BiPAP. Pt oxygen saturations were 88-92% on BiPAP. Order received from to change pt over to HFNC at 0230, pt changed to HFNC 20L/50%, oxygen saturations 88-92%, pt tolerated well and was able to cough out moderate amounts of green sputum. Urine output was 50cc, updated, no new orders received. Fermín patent. Tele NSR. Afebrile. Denies CP and N/V. Reports occasional SOB that pt reports has improved since last night. Left hip painful with movement, PRN pain medication given as needed but used sparingly. ?
[2023-04-20 07:06] LABS: Hematocrit 32.9 % (33.0-51.0); Hemoglobin* 10.4 gm/dL (12.0-16.0); Immature Granulocytes Abs Auto 0.03 K/uL (0.00-0.30); Immature Granulocytes Pct Auto 0.3 %; Lymphocytes Percent Auto 2.6 % (20-44); Mean Corpuscular HGB Conc 32 gm/dL (32-36); Mean Corpuscular Hemoglobin 31 pg (26-34); Mean Corpuscular Volume 99 fL (80-100); Monocytes Percent Auto 2.4 % (0.0-11.0); Neutrophils Percent Auto 94.7 % (42.0-72.0); Platelet Count* 135 K/uL (140-440); RDW Coefficient of Variation % 14.2 % (11.5-15.5); Red Blood Count 3.32 m/uL (4.00-5.20)
[2023-04-20 07:11] LABS: Slide Review Reflex No
--- NOTE | 2023-04-20 07:15 | CRLHL7_ITS ---
For Patients: As a result of the Century Cures Act, medical imaging exams and procedure reports are released immediately into your electronic medical record. You may view this report before your referring provider. If you have questions, please contact your health care provider. INDICATION: Hypoxia. COMPARISON: No prior chest CTs available for comparison TECHNIQUE: : CT examination of the chest was performed with the uneventful intravenous administration of 95 cc of Isovue 370 while thin axial sections were obtained from above the apices of the lungs to the lung bases. Please note that all CT scans at this facility use dose modulation, iterative reconstruction, and/or weight-based dosing when appropriate to reduce radiation dose to as low as reasonably achievable. FINDINGS: : HEART and MEDIASTINUM: The heart size is normal. There is no mediastinal or hilar adenopathy or mass. There is no pericardial effusion.Atherosclerotic vascular involve the calcifications PULMONARY ARTERIAL CIRCULATION: There is no visible intraluminal filling defect to suggest pulmonary embolus. LUNGS: Bibasilar atelectasis. There are also slightly more focal opacities at both bases, right greater than left with areas of bronchiolar wall thickening, right greater than left. This is probably due to mild aspiration or bronchial inflammatory disorder. No karel focal consolidation PLEURAL SPACES: There is no pleural effusion, pneumothorax or pleural based mass. VISUALIZED UPPER ABDOMEN: The limited visualized upper abdominal structures appear normal. OSSEOUS STRUCTURES: Age-appropriate appearance. No acute fracture or destructive process. TUBES and LINES: None. IMPRESSION: 1. There is no evidence of acute pulmonary embolus. 2. There is minimal basilar subsegmental atelectasis. 3. Bronchiolar wall thickening of posterobasal bilateral lower lobe bronchi, right greater than left with slightly confluent opacities at both lung bases, right greater than left. This is probably due to mild aspiration or bronchiolar inflammatory disorder. No karel focal consolidation to directly suggest pneumonia 4. Normal pleural spaces Please note that all CT scans at this facility use dose modulation, iterative reconstruction, and/or weight-based dosing when appropriate to reduce radiation dose to as low as reasonably achievable. Dictated by Jorge Locke MD @ 04/20/2023 10:26:08 AM (Electronically Signed)
[2023-04-20 07:34] LABS: Chloride* 99 mmol/L (96-114)
[2023-04-20 07:35] LABS: Potassium* 3.5 mmol/L (3.6-5.1); Sodium* 136 mmol/L (135-149)
[2023-04-20 07:37] LABS: Est. Creatinine Clearance* 34.91; Estimated Glomerular Filt Rate 59 ml/min
[2023-04-20 07:38] LABS: Anion Gap 8 mEq/L (7-15); Blood Urea Nitrogen* 16 mg/dL (7-30); Calcium* 8.2 mg/dL (8.4-10.6); Carbon Dioxide* 29 mmol/L (20-32); Glucose* 99 mg/dL (60-115)
[2023-04-20] MEDS: LACTATED RINGERS 500 ML 500 ML IV ×3 (07:39→19:11)
[2023-04-20 07:40] LABS: HCO3 VBG 31 mmol/L (21-28); PCO2 VBG 52 mmHG (40-50); PO2 VBG 31.9 mmHG (25-47); pH VBG 7.385 (7.32-7.43)
[2023-04-20 07:52] LABS: Troponin I* < 0.01 ng/mL (0.01-0.04)
[2023-04-20] MEDS: HYDROmorphone 0.5 mg/0.5 ml inj IVP (07:57)
[2023-04-20] MEDS: SODIUM CHLORIDE 0.9 % (FLUSH) 10 ML SYRINGE 5 ML IVF ×2 (07:58→20:23)
--- NOTE | 2023-04-20 08:52 | REH.OT ---
OT/PT eval on hold d/t respiratory distress, will evaluate after Hip sx.
--- NOTE | 2023-04-20 11:11 | RESP.RT ---
Patient needing BiPAP on arrival to Hospital, transitioned to HFNC, then NC at 4 Lpm, weaning to 2 Lpm, maintaining SaO2 greather than 88%. PEP with Aerobika with patient used well good chest shake, productive cough promoted whete thick secretions. IS with patient used well, good effort 750 with float in good position.
--- NOTE | 2023-04-20 11:15 | RESP.RT ---
Goal: maintain SaO2 between 85-91%, keeping Oxygen setting lowest possible.
--- NOTE | 2023-04-20 11:53 | CRLHL7_ITS ---
For Patients: As a result of the Cures Act, medical imaging exams and procedure reports are released immediately into your electronic medical record. You may view this report before your referring provider. If you have questions, please contact your health care provider. INDICATION: ORIF left hip pinning. COMPARISON: 04/19/2023. FINDINGS: Six spot intraoperative views were obtained showing over open-reduction internal fixation of the previously described left intertrochanteric fracture with a compression screw and short intramedullary wilder. Fluoroscopy time 78.5 seconds. Dictated by Jaret Mendez MD @ 04/22/2023 11:54:07 AM (Electronically Signed)
--- NOTE | 2023-04-20 12:04 | P.ORPRC_ITS ---
Procedure Note Date of procedure: 04/20/23 Procedure: PREOPERATIVE DIAGNOSIS: 1. Left femur intertrochanteric/femoral neck fracture, closed, mildly displaced POSTOPERATIVE DIAGNOSES: 1. Left femur intertrochanteric/femoral neck fracture PROCEDURE: 1. Left femur intertrochanteric/femoral neck fracture fixation with cephalomedullary nail 2. 49328 - Intraoperative fluoroscopy up to 1 hour SURGEON: Sunil Neri MD [employer] UNDERWRITER: Rachel Munson P.A.-C. An social research assistant was critical for this case to aide in patient positioning, suture manipulation, arm positioning, instrument positioning, and closure. ANESTHESIA: Spinal IMPLANTS: Synthes short TFNA nail: 12 mm X 170 mm x 130 degrees. 85 mm lag screw. 5.0 mm x 38 mm distal interlocking screw EBL: 50 ml COMPLICATIONS: None evident INDICATIONS: Dominique is a 77-year-old female who sustained a ground level fall 2 days ago which resulted in development of left hip pain inability to bear weight. Due to persistent pain, she was seen in the emergency department yesterday where radiographic imaging revealed mildly displaced left femur intertrochanteric and femoral neck fractures. Surgical stabilization of this fracture is recommended to allow for early mobilization and advancement of weight-bearing, decreased pain, and healing of the fracture. Prior to procedure, risks and benefits of the operative and non operative treatment were discussed with the patient and her . After discussion of risks, be nefits, and alternatives of surgery, informed consent was obtained and the operative hip was marked. FINDINGS: Mildly displaced left hip fracture involving the femoral neck and intertrochanteric regions of the proximal femur. PROCEDURE: After obtaining proper medical evaluation determining the patient was medically optimized for surgery, she was brought to the operating room and placed supine on the operating table. Induction of spinal anesthesia undertaken. 2 g IV Ancef was administered within 1 hr incision preoperatively. The patient was then positioned on the Dustin table, and all bony prominences were well padded. Fluoroscopic imaging was utilized to obtain AP and lateral views of the hip and to confirm reduction of the fracture. The operative extremity was then prepped and draped in usual sterile fashion using ChloraPrep. A surgical time- out was performed confirming patient identity surgical site and surgical procedure. A longitudinal incision was made in line with the femur proximal to the greater trochanter. Incision was carried through subcutaneous tissues. Gluteal fascia was split in line with surgical incision. The tip of the greater trochanter was palpated and the guide pin was then placed into the medial tip of the greater trochanter and advanced into the proximal femur. Correct position of the guide pin was confirmed with fluoroscopy in both the AP and lateral planes. This was then overdrilled with the starting Reamer. The guide pin was then removed. A short TFNA nail was then placed into the intramedullary canal of the femur and seated to the correct depth using fluoroscopic guidance. The triple trocar was then applied to the lateral femur, and an incision was made through the skin and ITB band. The triple trocar was placed against the la teral cortex of the proximal femur. This was confirmed fluoroscopically to be in appropriate position. The 3.2 mm guide pin was then placed and confirmed on AP and lateral views with the goal of center center position. For rotational control of the femoral head, a 2nd 3.2 mm guide pin was placed under fluoroscopic guidance. The initial guide pin measured for a 85 mm lag screw. Guide pin was then overdrilled and a 85 mm lag screw was secured into position. The D rotation guide pin was removed. The proximal nail locking screw was tightened down, a then backed off a 1/2 turn. Compression was then applied across the fracture site. The proximal locking screw was then tightened down to statically lock the nail. We then turned our attention to placement of the the distal interlocking screw. The guide for the distal interlock screw was placed on the lateral cortex of the femur after making a small stab incision. The distal interlock hole was drilled with the 4.2 mm drill bit and filled with a distal interlock screw, which measured 38 mm. Final fluoroscopic images of the proximal femur were obtained in AP and lateral planes confirming anatomic reduction of the fracture and exc ellent placement of the nail and screws. At this stage, the wounds were thoroughly irrigated with normal saline. Skin closure was performed with 0 Vicryl for the deep gluteal fascia and IT band. 2- 0 Vicryl and 2-0 Stratafix were utilized for subcutaneous and subcuticular closure, followed by application of Exofin glue. Sterile dressings were applied and patient was transferred off the Dustin table. She was meant awoken from anesthesia and transferred to the PACU in stable condition. POSTOPERATIVE PLAN: 1. Patient will be readmitted to the hospitalist service for perioperative medical management. 2. Mobilize with physical therapy and occupational therapy. - Weight bear as tolerated left lower extremity. 3. Pain control: - Acetaminophen and Oxycodone for pain as needed. -IV pain medications for breakthrough pain -Ice for pain and swelling 4. Postoperative prophylactic antibiotics x2 doses 5. DVT prophylaxis: - Xarelto 10 mg daily for 35 days - Thomas simmons and Lorri 6. Follow-up with ELA Munson in the [facility] in 1-2 weeksfor a wound check.
[2023-04-20] MEDS: CEFAZOLIN 1 GM inj IVP (12:30)
--- NOTE | 2023-04-20 13:53 | PM.IMPN1 ---
Progress Note: A&P Assessment and plan (1) Hypoxic respiratory failure: Problem details: Patient's hypoxic respiratory failure appears to be combination of underlying COPD, opioid use, undiagnosed sleep apnea. Possibly aspiration or atelectasis contributing. Will continue antibiotics for community-acquired pneumonia and supplemental oxygen. Does have some CO2 retention so oxygen therapy will need to be administered cautiously. Discussed with anesthesia in some detail a plan of care for managing perioperative and postoperative respiratory failure. Status: Acute (2) COPD (chronic obstructive pulmonary disease): Problem details: New diagnosis. Nebulizer treatments. Supplemental oxygen and monitor for CO2 retention Status: Acute (3) Fracture of hip, left, closed: Problem details: - fracture occurred on 04/17/2023, acute comminuted fracture of left proximal femur with mixed intertrochanteric and femoral neck involvement - patient presented for medical assessment on 04/19/[address] Neri 04/20/2023 Status: Acute (4) Alcohol dependence: Problem details: - since 2006 - 2 shots of vodka every night - CIWA protocol for now Status: Acute (5) Tobacco dependence: Problem details: - 1 pack per day - nicotine patch for now Status: Acute (6) Weight loss: Problem details: - dx 12/26/2022 - 01/10/2023 weight 50.9 kg, BMI 19.26 Status: Acute (7) Unstable gait: Problem details: - Multifactorial: Alcohol dependence, fully deficiency, vitamin B12 deficiency, and possibly in association with history of stroke as well. Postoperatively will assess mobility. May need jail facility for rehab Status: Acute Plan Continue in-hospital in CCU for management of respiratory failure postoperatively. Continue monitoring for complications of hip fracture and surgery and anesthesia. Monitor for complications of alcohol abuse. Ongoing assessment and treatment of frailty, unstable gait, malnutrition Time Spent With Patient Total time spent: Total time spent today is 100 minutes in critical care evaluation and treatment Subjective Date Seen: 04/20/23 Interval history: 77-year-old female seen in followup of hospitalization for hip fracture. Early morning, April 18 she fell while walking back from the bathroom to her bedroom with her walker she had severe pain in her hip. She tried to manage at home but because she was unable to bear weight due to pain she came to the emergency room yesterday, April 19, for evaluation. She was found to have a left femoral neck an intertrochanteric hip fracture. No other injury was identified. She was not felt to have had a syncopal episode. She reports no other symptoms of illness. She was found to be hypoxic earlier in her emergency department stay. She was on 1-2 L of nasal cannula oxygen yesterday. Early this morning she became quite hypoxic and required transfer to the CCU for BiPAP and high-flow oxygen. Patient tells me that she has not been dyspneic but nurses of clearly documented hypoxia with O2 sats in the 70s and low 80s. She does not have a history of requiring oxygen. She does not have any history of cardiac or pulmonary disease. She is not aware of having sleep apnea. She has been a longstanding cigarette smoker, 1 pack per day. She had chest x-ray and chest CT scan. No obvious pulmonary embolism or pneumonia. Some bibasilar opacities that could reflect aspiration or atelectasis. During the night the patient was on high-flow oxygen primarily. She was receiving 20 L at 50% FiO2 to maintain her sats in the low 90s. This morning when she was awake she was weaned off of high-flow oxygen onto simple nasal cannula 2 L per minute. With this she was able to continue to keep her sats in the low 90s until she fell asleep and her O2 sats dropped into the 80s. She received 1.5 mg of hydromorphone about 11:00 a.m. last night and about 8:00 a.m. this morning. Both those doses of hydromorphone occurred before she became more hypoxic. She reports no other concerns this morning. She is anxious to have her surgery. She is managing her pain from her fracture quite well. Her urine output has been low and she has received a couple boluses of LR 500 mL this morning. Exam Narrative: Exam Narrative: She is alert and oriented to her circumstances she gives her own history. Respirations with diminished breath sounds. No significant wheezing. Rare basilar crackle. Fair to poor air exchange in all lung ramirez. No consolidation. Cardiovascular: S1, S2, regular rate and rhythm. Abdomen: Bowel sounds active. Abdomen is soft without tenderness or mass. Extremities without edema. Good perfusion in all 4 extremities. Const: Vital Signs, click to edit/add: Vital Signs - 24 hr 04/19/23 15:32 04/19/23 16:56 04/19/23 19:00 Temperature 98.4 F Pulse Rate Pulse Rate [Left D orsalis Pedis] 94 90 Pulse Rate [Pulse Oximeter] 89 Respiratory Rate 16 18 Blood Pressure [Le ft Arm] 130/75 114/63 Blood Pressure [Ri ght Upper Arm] 139/77 Pulse Oximetry 96 91 88 Oxygen Delivery Me thod Nasal Cannula Nasal Cannula Nasal Cannula Oxygen Flow Rate 1 1 1 Fraction of Inspir ed Oxygen 04/19/23 19:00 04/19/23 23:00 04/19/23 23:00 Temperature 98.2 F Pulse Rate Pulse Rate [Left D orsalis Pedis] 90 90 Pulse Rate [Pulse Oximeter] Respiratory Rate 18 18 18 Blood Pressure [Le ft Arm] 122/73 Blood Pressure [Ri ght Upper Arm] Pulse Oximetry 90 90 Oxygen Delivery Me thod BiPAP Nasal Cannula Oxygen Flow Rate 2 2 Fraction of Inspir ed Oxygen 04/19/23 23:00 04/19/23 23:00 04/20/23 02:00 Temperature 98 F 98.2 F 98.2 F Pulse Rate Pulse Rate [Left D orsalis Pedis] 90 90 90 Pulse Rate [Pulse Oximeter] Respiratory Rate 16 18 18 Blood Pressure [Le ft Arm] 152/74 H 122/73 122/73 Blood Pressure [Ri ght Upper Arm] Pulse Oximetry 90 82 L 90 Oxygen Delivery Me thod Nasal Cannula BiPAP BiPAP Oxygen Flow Rate 2 2 Fraction of Inspir ed Oxygen 04/20/23 02:30 04/20/23 02:30 04/20/23 03:00 Temperature Pulse Rate 94 Pulse Rate [Left D orsalis Pedis] Pulse Rate [Pulse Oximeter] Respiratory Rate Blood Pressure [Le ft Arm] Blood Pressure [Ri ght Upper Arm] Pulse Oximetry Oxygen Delivery Me thod Oxygen Flow Rate 15 Fraction of Inspir ed Oxygen 50 50 04/20/23 04:00 04/20/23 04:00 04/20/23 06:00 Temperature 97.8 F Pulse Rate Pulse Rate [Left D orsalis Pedis] 86 Pulse Rate [Pulse Oximeter] Respiratory Rate 20 Blood Pressure [Le ft Arm] 114/66 Blood Pressure [Ri ght Upper Arm] Pulse Oximetry 88 Oxygen Delivery Me thod High Flow Nasal Ca nnula Oxygen Flow Rate 20 Fraction of Inspir ed Oxygen 50 50 50 04/20/23 06:00 04/20/23 07:00 04/20/23 07:00 Temperature 97.7 F Pulse Rate 94 Pulse Rate [Left D orsalis Pedis] 78 Pulse Rate [Pulse Oximeter] Respiratory Rate 18 18 Blood Pressure [Le ft Arm] 120/68 Blood Pressure [Ri ght Upper Arm] Pulse Oximetry 91 93 Oxygen Delivery Me thod High Flow Nasal Ca nnula Nasal Cannula Oxygen Flow Rate 20 2 Fraction of Inspir ed Oxygen 50 35 04/20/23 07:00 04/20/23 08:00 04/20/23 08:00 Temperature 98.3 F Pulse Rate Pulse Rate [Left D orsalis Pedis] 78 78 Pulse Rate [Pulse Oximeter] Respiratory Rate 18 18 Blood Pressure [Le ft Arm] 136/88 Blood Pressure [Ri ght Upper Arm] Pulse Oximetry 91 Oxygen Delivery Me thod Nasal Cannula Oxygen Flow Rate 2 Fraction of Inspir ed Oxygen 35 04/20/23 08:00 04/20/23 08:30 04/20/23 10:00 Temperature 98.3 F 98.1 F Pulse Rate Pulse Rate [Left D orsalis Pedis] 78 84 Pulse Rate [Pulse Oximeter] Respiratory Rate 18 24 20 Blood Pressure [Le ft Arm] 136/88 142/87 H Blood Pressure [Ri ght Upper Arm] Pulse Oximetry 93 96 96 Oxygen Delivery Me thod Nasal Cannula Nasal Cannula Nasal Cannula Oxygen Flow Rate 2 2 2 Fraction of Inspir ed Oxygen 04/20/23 11:00 Temperature Pulse Rate 94 Pulse Rate [Left D orsalis Pedis] Pulse Rate [Pulse Oximeter] Respiratory Rate Blood Pressure [Le ft Arm] Blood Pressure [Ri ght Upper Arm] Pulse Oximetry Oxygen Delivery Me thod Oxygen Flow Rate Fraction of Inspir ed Oxygen Documenting provider has reviewed patient's vital signs: yes Labs Labs: Laboratory Results - last 24 hr 04/19/23 04/20/23 04/20/23 13:39 01:00 06:27 WBC 10.60 RBC 3.32 L Hgb 10.4 L Hct 32.9 L MCV 99 MCH 31 MCHC 32 RDW Coeff of Penny 14.2 Plt Count 135 L Neut % (Auto) 94.7 H Lymph % (Auto) 2.6 L Gaston % (Auto) 2.4 Eos % (Auto) 0.0 Baso % (Auto) 0.0 Neut # (Auto) 10.00 H Lymph # (Auto) 0.30 L Gaston # (Auto) 0.30 Eos # (Auto) 0.00 Baso # (Auto) 0.00 Abs Immat Gran (auto) 0.03 Imm/Tot Granulo (auto) 0.3 ABG pH 7.40 ABG pCO2 50 H ABG pO2 57.0 L ABG HCO3 31 H ABG Total CO2 29 ABG O2 Saturation 89 L ABG Base Excess 5.0 H VBG pH VBG pCO2 VBG pO2 VBG HCO3 Carboxyhemoglobin 1.4 Sodium 136 Potassium 3.5 L Chloride 99 Carbon Dioxide 29 Anion Gap 8 BUN 16 Creatinine 1.0 Estimated Creat Clear 34.91 Estimated GFR 59 Glucose 99 Calcium 8.2 L Troponin I < 0.01 L Urine Color Yellow Urine Appearance Clear Urine pH 6.0 Ur Specific [place] 1.020 Urine Protein 1+ A Urine Glucose (UA) Negative Urine Ketones 2+ A Urine Blood 2+ A Urine Nitrite Negative Urine Bilirubin 2+ A Urine Urobilinogen 0.2 Ur Leukocyte Esterase 3+ A Urine RBC 5-10 A Urine WBC 2-5 Ur Squamous Epith Cells Few Amorphous Sediment Few A Urine Bacteria Many A Lab Acknowledgement 04/20/23 04/20/23 07:17 07:37 WBC RBC Hgb Hct MCV MCH MCHC RDW Coeff of Penny Plt Count Neut % (Auto) Lymph % (Auto) Gaston % (Auto) Eos % (Auto) Baso % (Auto) Neut # (Auto) Lymph # (Auto) Gaston # (Auto) Eos # (Auto) Baso # (Auto) Abs Immat Gran (auto) Imm/Tot Granulo (auto) ABG pH ABG pCO2 ABG pO2 ABG HCO3 ABG Total CO2 ABG O2 Saturation ABG Base Excess VBG pH 7.385 VBG pCO2 52 H VBG pO2 31.9 VBG HCO3 31 H Carboxyhemoglobin Sodium Potassium Chloride Carbon Dioxide Anion Gap BUN Creatinine Estimated Creat Clear Estimated GFR Glucose Calcium Troponin I Urine Color Urine Appearance Urine pH Ur Specific [place] Urine Protein Urine Glucose (UA) Urine Ketones Urine Blood Urine Nitrite Urine Bilirubin Urine Urobilinogen Ur Leukocyte Esterase Urine RBC Urine WBC Ur Squamous Epith Cells Amorphous Sediment Urine Bacteria Lab Acknowledgement Test Added Imaging CT scan - chest: Radiologist's impression: INDICATION: Hypoxia. COMPARISON: No prior chest CTs available for comparison TECHNIQUE: : CT examination of the chest was performed with the uneventful intravenous administration of 95 cc of Isovue 370 while thin axial sections were obtained from above the apices of the lungs to the lung bases. Please note that all CT scans at this facility use dose modulation, iterative reconstruction, and/or weight-based dosing when appropriate to reduce radiation dose to as low as reasonably achievable. FINDINGS: : HEART and MEDIASTINUM: The heart size is normal. There is no mediastinal or hilar adenopathy or mass. There is no pericardial effusion.Atherosclerotic vascular involve the calcifications PULMONARY ARTERIAL CIRCULATION: There is no visible intraluminal filling defect to suggest pulmonary embolus. LUNGS: Bibasilar atelectasis. There are also slightly more focal opacities at both bases, right greater than left with areas of bronchiolar wall thickening, right greater than left. This is probably due to mild aspiration or bronchial inflammatory disorder. No karel focal consolidation PLEURAL SPACES: There is no pleural effusion, pneumothorax or pleural based mass. VISUALIZED UPPER ABDOMEN: The limited visualized upper abdominal structures appear normal. OSSEOUS STRUCTURES: Age-appropriate appearance. No acute fracture or destructive process. TUBES and LINES: None. IMPRESSION: 1. There is no evidence of acute pulmonary embolus. 2. There is minimal basilar subsegmental atelectasis. 3. Bronchiolar wall thickening of posterobasal bilateral lower lobe bronchi, right greater than left with slightly confluent opacities at both lung bases, right greater than left. This is probably due to mild aspiration or bronchiolar inflammatory disorder. No karel focal consolidation to directly suggest pneumonia 4. Normal pleural spaces
[2023-04-20] MEDS: BUPIVACAINE 0.5 %/EPI 1:200K 30 ML INJECTION (14:00)
--- NOTE | 2023-04-20 14:20 | P.ANES_ITS ---
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
--- NOTE | 2023-04-20 14:51 | P.NB_ITS ---
Nerve Block Nerve Block Time Seen by Provider: 14:30 Date Seen: 04/20/23 Type of block requested by surgeon for post-operative analgesia: ANIVAL/LFCN Side: left Time out performed: Yes Verification of patient name: Yes Verification of date of : Yes Site marking: site marked Name of person performing procedure: vinny Continuous monitoring Was continuous monitoring of O2 sat, B/P, sales promotion manager, recorded every 15 minutes?: Yes Procedure Checklist: sterile prep and needles Ultrasound guided. Images saved: Yes Medications given in 5ml increments after negative aspiration: Ropivicaine %: 0.5 mL: 20 Needle gauge: 20 Decadron (mg): 10 Precedex (mcg): 50 Patient tolerated procedure well: Yes Block Charges Block Charge (with Pro Fee): Other Periph Nerve Block Use of Ultrasound Machine for Block: Yes- US Guidance/pain block
--- NOTE | 2023-04-20 15:03 | SUR.PHASEI ---
patient met discharge criteria per anesthesia
--- NOTE | 2023-04-20 17:01 | RESP.RT ---
Post surgical; patient on NC 2 Lpm, SaO2 965 decreased to 1 Lpm, SaO2 90%. RR 14-20/minute, breathing regular/easy, patient has a good loose spontaneous cough. HFNC on standby for use tonight with start settings FiO2 25%, Flow 15 Lpm, Temperature 36 decrees (C). Maintain SaO2 between 85-92%. Increase Flow to 20 Lpm, then Oxygen as needed, wean toward morning if possible.
[2023-04-20] MEDS: NICOTINE 14 mg PATCH 1 PATCH TRANSDERMA (18:08)
[2023-04-20] MEDS: THIAMINE 100 MG TABLET PO (18:08)
--- NOTE | 2023-04-20 19:13 | PC.NURSE ---
Patient returned from surgery around 1500 on 2 L of oxygen - O2 sats in the mid 90's on this. Blood pressure stable. Pt using incentive spirometer and aerobika with assistance. Scheduled nebs given. Pt states she has no pain. Dressing to left hip is clean dry and intact. Teds and scds are in place. Kovacs in place - draining light mignon urine. Dr. Liu called due to low urine output. Order received for LR bolus which is currently infusing. Pt able to tolerate a regular diet for dinner - denies nausea.
[2023-04-20] MEDS: CEFAZOLIN 1 GM in 0.9 % SODIUM CHLORIDE Mini-bag 100 ML IVPB (20:20)
[2023-04-20] MEDS: MIRTAZAPINE 15 MG TABLET 7.5 MG PO (20:21)
[2023-04-20] MEDS: SENNOSIDES 1 TAB TABLET 2 TAB PO (20:21)
[2023-04-20] MEDS: ATORVASTATIN 10 MG TABLET 20 MG PO (20:22)
[2023-04-21] VITALS (8 sets, daily range): BP systolic 96–119; BP diastolic 59–89; PULSE 75–104; RESP 16–22; TEMP 36.3–37; O2SAT 90–95
[2023-04-21] MEDS: LACTATED RINGERS 500 ML 500 ML IV ×3 (00:03→15:37)
[2023-04-21] MEDS: ACETAMINOPHEN 325 MG TABLET 650 MG PO ×2 (00:06→07:36)
[2023-04-21] MEDS: IPRAT-ALBUT 0.5-2.5 MG/3 ML NEB 1 NEB IH ×3 (00:06→17:58)
[2023-04-21] MEDS: HYDROmorphone 0.5 mg/0.5 ml inj IVP ×3 (00:06→22:38)
[2023-04-21] MEDS: CEFAZOLIN 1 GM in 0.9 % SODIUM CHLORIDE Mini-bag 100 ML IVPB (04:14)
--- NOTE | 2023-04-21 06:40 | PC.NURSE ---
?-: pleasant and cooperative. Calls appropriately. CIWA scores 0. HFNC @ 20/25, titrated down from 20/30, pt maintaining O2 sats in the low 90s. Moist cough, pt unable to cough up any sputum, encouraging aerobika use. Kovacs patent and draining. Low urine output,?500mL bolus given x 2. Pt removed IV in left forearm, cath intact, restarted fluids in left AC IV. Dressing to left hip CDI. Pt declines active ice to surgical site. c/o pain 11/05, prn Tylenol and dilaudid given, offered relief. ?
[2023-04-21 06:46] LABS: Basophils Absolute Auto 0.01 K/uL (0.00-0.30); Basophils Percent Auto 0.1 % (0.0-3.0); Hematocrit 26.8 % (33.0-51.0); Hemoglobin* 8.6 gm/dL (12.0-16.0); Immature Granulocytes Abs Auto 0.04 K/uL (0.00-0.30); Immature Granulocytes Pct Auto 0.4 %; Lymphocytes Percent Auto 6.7 % (20-44); Mean Corpuscular HGB Conc 32 gm/dL (32-36); Mean Corpuscular Hemoglobin 32 pg (26-34); Mean Corpuscular Volume 99 fL (80-100); Neutrophils Percent Auto 87.8 % (42.0-72.0); Platelet Count* 127 K/uL (140-440); RDW Coefficient of Variation % 14.3 % (11.5-15.5); Red Blood Count 2.71 m/uL (4.00-5.20); White Blood Count* 10.41 K/uL (4.50-11.00)
[2023-04-21 06:48] LABS: Slide Review Reflex No
[2023-04-21 07:01] LABS: Chloride* 101 mmol/L (96-114); Potassium* 3.7 mmol/L (3.6-5.1); Sodium* 136 mmol/L (135-149)
[2023-04-21 07:04] LABS: Anion Gap 5 mEq/L (7-15); Blood Urea Nitrogen* 19 mg/dL (7-30); Carbon Dioxide* 30 mmol/L (20-32); Creatinine* 0.7 mg/dL (0.5-1.5); Est. Creatinine Clearance* 34.91; Estimated Glomerular Filt Rate 90 ml/min; Glucose* 110 mg/dL (60-115)
[2023-04-21 07:05] LABS: Calcium* 8.1 mg/dL (8.4-10.6)
[2023-04-21 08:54] LABS: PCR FLU A Negative PCR FLU A (Negative); PCR FLU B Negative PCR FLU B (Negative); PCR RSV Negative PCR RSV (Negative)
--- NOTE | 2023-04-21 08:54 | PM.ORPN ---
Subjective Subjective Date Seen: 04/21/23 Principal diagnosis: Status postop day 1, left hip IM nail Interval history: Patient reports doing okay. Pain is appropriate through the left lower extremity, worse when she coughs. Breathing has been an issue. Patient is on high-flow oxygen via nasal cannula. No acute events over night. Pain managed with scheduled and PRN medications; she is denying ice as it is too cold. DVT prophylaxis: Rivaroxaban 10 mg once daily, bilateral knee high Thomas stockings, SCDs, walking. Patient has not yet been up walking. Denies fevers, chills, aches, N/V, CP, or lightheadedness. Patient states that she is going home today. Her family is in the room with her. Ortho Exam Narrative Exam Narrative: -Patient appears comfortable in bed, receiving high-flow oxygen via nasal cannula; no apparent acute distress -Alert and oriented times 3 -Operative hip/leg mildly swollen; soft tissues supple; no obvious erythema. Ecchymosis minimal. Warmth appropriate -Surgical dressings clean, dry, intact; no obvious drainage, no erythematous streaking peripheral to the bandage -Bilateral calves soft and supple; no significant swelling, edema, tenderness, erythema, discoloration, warmth, or palpable cords -2+ DP/PT pulses, intact dermatomes and myotomes distally (5/5 strength). Mild numbness about the lateral femoral cutaneous nerve distribution. Const Vital Signs, click to edit/add: Vital Signs - 24 hr 04/20/23 10:00 04/20/23 11:00 04/20/23 14:13 Temperature 98.1 F 97.7 F Pulse Rate 94 93 Pulse Rate [Left Dorsalis Pedis] 84 Pulse Rate [Pulse Oximeter] Respiratory Rate 20 14 Blood Pressure 125/96 H Blood Pressure [Left Arm] 142/87 H Blood Pressure [Right Arm] Pulse Oximetry 96 92 Oxygen Delivery Method Nasal Cannula Nasal Cannula Oxygen Flow Rate 2 4 Fraction of Inspired Oxygen 04/20/23 14:15 04/20/23 14:20 04/20/23 14:25 Temperature 97.7 F 97.7 F 97.7 F Pulse Rate 95 91 90 Pulse Rate [Left Dorsalis Pedis] Pulse Rate [Pulse Oximeter] Respiratory Rate 12 12 12 Blood Pressure 138/115 H 147/83 H 137/74 Blood Pressure [Left Arm] Blood Pressure [Right Arm] Pulse Oximetry 91 91 97 Oxygen Delivery Method Nasal Cannula Nasal Cannula Nasal Cannula Oxygen Flow Rate 4 4 3 Fraction of Inspired Oxygen 04/20/23 14:30 04/20/23 14:35 04/20/23 14:40 Temperature 97.7 F 97.7 F 97.7 F Pulse Rate 83 79 76 Pulse Rate [Left Dorsalis Pedis] Pulse Rate [Pulse Oximeter] Respiratory Rate 12 11 L 12 Blood Pressure 126/85 145/92 H 153/76 H Blood Pressure [Left Arm] Blood Pressure [Right Arm] Pulse Oximetry 93 93 96 Oxygen Delivery Method Nasal Cannula Nasal Cannula Nasal Cannula Oxygen Flow Rate 3 3 2 Fraction of Inspired Oxygen 04/20/23 14:45 04/20/23 14:50 04/20/23 15:00 Temperature 97.7 F 97.3 F L Pulse Rate 68 67 Pulse Rate [Left Dorsalis Pedis] Pulse Rate [Pulse Oximeter] Respiratory Rate 16 14 16 Blood Pressure 155/78 H 146/77 H Blood Pressure [Left Arm] Blood Pressure [Right Arm] Pulse Oximetry 92 97 97 Oxygen Delivery Method Nasal Cannula Nasal Cannula Nasal Cannula Oxygen Flow Rate 2 1 1 Fraction of Inspired Oxygen 04/20/23 15:00 04/20/23 15:00 04/20/23 15:00 Temperature 97.1 F L Pulse Rate 76 Pulse Rate [Left Dorsalis Pedis] 76 77 Pulse Rate [Pulse Oximeter] Respiratory Rate 16 16 Blood Pressure Blood Pressure [Left Arm] Blood Pressure [Right Arm] 132/69 Pulse Oximetry 90 Oxygen Delivery Method Nasal Cannula Oxygen Flow Rate 1 Fraction of Inspired Oxygen 04/20/23 15:15 04/20/23 15:30 04/20/23 16:00 Temperature 97.7 F Pulse Rate Pulse Rate [Left Dorsalis Pedis] 82 77 78 Pulse Rate [Pulse Oximeter] Respiratory Rate 16 16 16 Blood Pressure Blood Pressure [Left Arm] Blood Pressure [Right Arm] 116/66 131/73 131/74 Pulse Oximetry 93 89 89 Oxygen Delivery Method Nasal Cannula Nasal Cannula Nasal Cannula Oxygen Flow Rate 1 1 2 Fraction of Inspired Oxygen 04/20/23 16:30 04/20/23 17:00 04/20/23 19:00 Temperature 97.8 F Pulse Rate Pulse Rate [Left Dorsalis Pedis] 69 80 106 H Pulse Rate [Pulse Oximeter] Respiratory Rate 16 16 16 Blood Pressure Blood Pressure [Left Arm] Blood Pressure [Right Arm] 148/85 H 141/85 H 93/44 L Pulse Oximetry 91 91 96 Oxygen Delivery Method Nasal Cannula Nasal Cannula Nasal Cannula Oxygen Flow Rate 1 1 1 Fraction of Inspired Oxygen 04/20/23 19:00 04/20/23 20:00 04/20/23 21:00 Temperature Pulse Rate 97 Pulse Rate [Left Dorsalis Pedis] 92 96 Pulse Rate [Pulse Oximeter] Respiratory Rate 16 16 Blood Pressure Blood Pressure [Left Arm] Blood Pressure [Right Arm] 96/47 L 115/59 L Pulse Oximetry 91 92 Oxygen Delivery Method Nasal Cannula Nasal Cannula Oxygen Flow Rate 1 1 Fraction of Inspired Oxygen 04/20/23 22:45 04/20/23 22:45 04/20/23 22:45 Temperature Pulse Rate Pulse Rate [Left Dorsalis Pedis] Pulse Rate [Pulse Oximeter] Respiratory Rate 16 16 16 Blood Pressure Blood Pressure [Left Arm] Blood Pressure [Right Arm] Pulse Oximetry 89 89 Oxygen Delivery Method High Flow Nasal Cannula High Flow Nasal Cannula Oxygen Flow Rate 20 20 Fraction of Inspired Oxygen 30 30 04/20/23 22:56 04/21/23 02:00 04/21/23 04:00 Temperature 98.6 F 98 F Pulse Rate 104 H Pulse Rate [Left Dorsalis Pedis] Pulse Rate [Pulse Oximeter] 88 82 Respiratory Rate 16 16 Blood Pressure Blood Pressure [Left Arm] Blood Pressure [Right Arm] 116/64 111/64 Pulse Oximetry 91 94 Oxygen Delivery Method High Flow Nasal Cannula High Flow Nasal Cannula Oxygen Flow Rate 20 20 Fraction of Inspired Oxygen 30 30 04/21/23 05:17 04/21/23 06:00 04/21/23 07:00 Temperature Pulse Rate 75 Pulse Rate [Left Dorsalis Pedis] Pulse Rate [Pulse Oximeter] 87 Respiratory Rate 16 20 Blood Pressure Blood Pressure [Left Arm] Blood Pressure [Right Arm] 119/70 Pulse Oximetry 90 91 Oxygen Delivery Method High Flow Nasal Cannula High Flow Nasal Cannula Oxygen Flow Rate 15 20 Fraction of Inspired Oxygen 25 25 04/21/23 07:00 Temperature 97.4 F L Pulse Rate Pulse Rate [Left Dorsalis Pedis] Pulse Rate [Pulse Oximeter] 101 H Respiratory Rate 20 Blood Pressure Blood Pressure [Left Arm] Blood Pressure [Right Arm] 119/70 Pulse Oximetry 91 Oxygen Delivery Method High Flow Nasal Cannula Oxygen Flow Rate 20 Fraction of Inspired Oxygen 25 Assessment and Plan Assessment and plan (1) Hypoxic respiratory failure: Problem details: Patient's hypoxic respiratory failure appears to be combination of underlying COPD, opioid use, undiagnosed sleep apnea. Possibly aspiration or atelectasis contributing. Will continue antibiotics for community-acquired pneumonia and supplemental oxygen. Does have some CO2 retention so oxygen therapy will need to be administered cautiously. Discussed with anesthesia in some detail a plan of care for managing perioperative and postoperative respiratory failure. Status: Acute (2) COPD (chronic obstructive pulmonary disease): Problem details: New diagnosis. Nebulizer treatments. Supplemental oxygen and monitor for CO2 retention Status: Acute (3) Fracture of hip, left, closed: Problem details: - fracture occurred on 04/17/2023, acute comminuted fracture of left proximal femur with mixed intertrochanteric and femoral neck involvement - patient presented for medical assessment on 04/19/[address] Neri 04/20/2023 Status: Acute (4) Alcohol dependence: Problem details: - since 2006 - 2 shots of vodka every night - CIWA protocol for now Status: Acute (5) Tobacco dependence: Problem details: - 1 pack per day - nicotine patch for now Status: Acute (6) Weight loss: Problem details: - dx 12/26/2022 - 01/10/2023 weight 50.9 kg, BMI 19.26 Status: Acute (7) Unstable gait: Problem details: - Multifactorial: Alcohol dependence, folate deficiency, vitamin B12 deficiency, and possibly in association with history of stroke as well. Postoperatively will assess mobility. Will need custodial facility for rehab Status: Acute Plan - Complete 23 hour perioperative antibiotics. - PT/OT consult for education and assistance - patient will be reluctant to walk. - Social work consult for discharge planning - Prescribed analgesics as needed - balance between respiratory issues an adequate pain control; I would err on side of minimizing narcotic use for pain. - DVT prophylaxis: Rivaroxaban 10 mg once daily,, bilateral knee high Thomas Hose stockings and SCDs - Anticipation is for discharge to SNF once patient remains medically stable, pain is controlled, and they are reasonably safe with mobilization.
[2023-04-21 08:55] LABS: SARS PCR* Negative SARS-CoV-2 (Negative)
[2023-04-21] MEDS: CYANOCOBALAMIN (VITAMIN B-12) 500 MCG TABLET 1000 MCG PO (08:57)
[2023-04-21] MEDS: SENNOSIDES 1 TAB TABLET 2 TAB PO ×2 (08:57→20:05)
[2023-04-21] MEDS: FOLIC ACID 1 MG TABLET PO (08:57)
[2023-04-21] MEDS: guaiFENesin 600 MG TAB.ER.12H PO ×2 (08:58→20:06)
[2023-04-21] MEDS: RIVAROXABAN 10 MG TABLET PO (08:58)
[2023-04-21] MEDS: MULTIVITAMIN/MINERALS 1 TABLET 1 TAB PO (08:58)
[2023-04-21] MEDS: AZITHROMYCIN 500 MG in 0.9 % SODIUM CHLORIDE 250 ml 250 ML 255 MG IVPB (10:30)
[2023-04-21] MEDS: SODIUM CHLORIDE 0.9 % (FLUSH) 10 ML SYRINGE 5 ML IVF ×2 (10:30→20:07)
--- NOTE | 2023-04-21 11:33 | RESP.RT ---
Pt on HFNC, weaned today, currently at Flow of 15/min and FIO2 of 25%. SPO2 92%. Attempted to wean further, however SPO2 decreased to 85%. Continue with aggressive pulmonary hygiene.
--- NOTE | 2023-04-21 13:36 | P.IMPN_ITS ---
Progress Note: A&P Assessment and plan (1) Hypoxic respiratory failure: Problem details: Patient's hypoxic respiratory failure appears to be combination of underlying COPD, opioid use, undiagnosed sleep apnea. Possibly aspiration or atelectasis contributing. Will continue antibiotics for community-acquired pneumonia and supplemental oxygen. Does have some CO2 retention so oxygen therapy will need to be administered cautiously. Discussed with anesthesia in some detail a plan of care for managing perioperative and postoperative respiratory failure. Status: Acute (2) COPD (chronic obstructive pulmonary disease): Problem details: New diagnosis. Nebulizer treatments. Supplemental oxygen and monitor for CO2 retention Status: Acute (3) Fracture of hip, left, closed: Problem details: - fracture occurred on 04/17/2023, acute comminuted fracture of left proximal femur with mixed intertrochanteric and femoral neck involvement - patient presented for medical assessment on 04/19/[address] Neri 04/20/2023 Status: Acute (4) Alcohol dependence: Problem details: Visual hallucinations today - since 2006 - 2 shots of vodka every night - CIWA protocol for now Status: Acute (5) Tobacco dependence: Problem details: - 1 pack per day - nicotine patch for now Status: Acute (6) Weight loss: Problem details: - dx 12/26/2022 - 01/10/2023 weight 50.9 kg, BMI 19.26 Status: Acute (7) Unstable gait: Problem details: - Multifactorial: Alcohol dependence, folate deficiency, vitamin B12 deficiency, and possibly in association with history of stroke as well. Postoperatively will assess mobility. Will need detention facility for rehab Status: Acute (8) Delirium: Problem details: Currently having delirium. Unclear if this is alcohol withdrawal delirium or hospital-acquired delirium or combination of both. Will initially treat with lorazepam and monitor for other complications. Status: Acute (9) Discharge planning issues: Problem details: Patient is anxious to go home. Currently she needs assist of more than 1 person to transfer. Status: Acute Plan Continue in hospital for rehabilitation following hip fracture. Monitor for complications of hip fracture and surgery. Monitor for complications of chronic medical problems including delirium and alcohol withdrawal. Monitor and manage hypoxic respiratory failure. Time Spent With Patient Total time spent: Total time spent today is 50 minutes, 30 minutes in coordination of care and discussing with patient family and other providers management of delirium and hypoxic respiratory failure Subjective Date Seen: 04/21/23 Interval history: 77-year-old female admitted with left femoral neck and intertrochanteric fracture from a fall at home from standing height. She has had hypoxic respiratory failure since admission. On and off of high-flow oxygen. She underwent ORIF with Dr. Neri yesterday. No complications. Postoperatively she continues to have oxygen requirement will with high-flow alternating with regular nasal cannula. She is not dyspneic. She reports no cough or fever. Her pain is adequately controlled. She has developed some delirium today with report of seeing bats in her room. She is anxious to go home. She required assist of 3 to go from bed to chair today. Exam Narrative: Exam Narrative: She is alert and appears in no distress. She is oriented to being in the hospital. Still reporting bats flying in the curtains. Head is without trauma. Eyes normal. Respirations are clear to auscultation. Diminished breath sounds without wheezing. Cardiovascular: S1, S2, regular rate and rhythm. Abdomen: Bowel sounds active. Abdomen is soft without tenderness. She has swelling without obvious bruising redness or drainage on her left hip. Intact pulses and sensation distally. Const: Vital Signs, click to edit/add: Vital Signs - 24 hr 04/20/23 14:13 04/20/23 14:15 04/20/23 14:20 Temperature 97.7 F 97.7 F 97.7 F Pulse Rate 93 95 91 Pulse Rate [Left D orsalis Pedis] Pulse Rate [Pulse Oximeter] Respiratory Rate 14 12 12 Blood Pressure 125/96 H 138/115 H 147/83 H Blood Pressure [Ri ght Arm] Pulse Oximetry 92 91 91 Oxygen Delivery Me thod Nasal Cannula Nasal Cannula Nasal Cannula Oxygen Flow Rate 4 4 4 Fraction of Inspir ed Oxygen 04/20/23 14:25 04/20/23 14:30 04/20/23 14:35 Temperature 97.7 F 97.7 F 97.7 F Pulse Rate 90 83 79 Pulse Rate [Left D orsalis Pedis] Pulse Rate [Pulse Oximeter] Respiratory Rate 12 12 11 L Blood Pressure 137/74 126/85 145/92 H Blood Pressure [Ri ght Arm] Pulse Oximetry 97 93 93 Oxygen Delivery Me thod Nasal Cannula Nasal Cannula Nasal Cannula Oxygen Flow Rate 3 3 3 Fraction of Inspir ed Oxygen 04/20/23 14:40 04/20/23 14:45 04/20/23 14:50 Temperature 97.7 F 97.7 F 97.3 F L Pulse Rate 76 68 67 Pulse Rate [Left D orsalis Pedis] Pulse Rate [Pulse Oximeter] Respiratory Rate 12 16 14 Blood Pressure 153/76 H 155/78 H 146/77 H Blood Pressure [Ri ght Arm] Pulse Oximetry 96 92 97 Oxygen Delivery Me thod Nasal Cannula Nasal Cannula Nasal Cannula Oxygen Flow Rate 2 2 1 Fraction of Inspir ed Oxygen 04/20/23 15:00 04/20/23 15:00 04/20/23 15:00 Temperature Pulse Rate 76 Pulse Rate [Left D orsalis Pedis] 76 Pulse Rate [Pulse Oximeter] Respiratory Rate 16 16 Blood Pressure Blood Pressure [Ri ght Arm] Pulse Oximetry 97 Oxygen Delivery Me thod Nasal Cannula Oxygen Flow Rate 1 Fraction of Inspir ed Oxygen 04/20/23 15:00 04/20/23 15:15 04/20/23 15:30 Temperature 97.1 F L Pulse Rate Pulse Rate [Left D orsalis Pedis] 77 82 77 Pulse Rate [Pulse Oximeter] Respiratory Rate 16 16 16 Blood Pressure Blood Pressure [Ri ght Arm] 132/69 116/66 131/73 Pulse Oximetry 90 93 89 Oxygen Delivery Me thod Nasal Cannula Nasal Cannula Nasal Cannula Oxygen Flow Rate 1 1 1 Fraction of Inspir ed Oxygen 04/20/23 16:00 04/20/23 16:30 04/20/23 17:00 Temperature 97.7 F Pulse Rate Pulse Rate [Left D orsalis Pedis] 78 69 80 Pulse Rate [Pulse Oximeter] Respiratory Rate 16 16 16 Blood Pressure Blood Pressure [Ri ght Arm] 131/74 148/85 H 141/85 H Pulse Oximetry 89 91 91 Oxygen Delivery Me thod Nasal Cannula Nasal Cannula Nasal Cannula Oxygen Flow Rate 2 1 1 Fraction of Inspir ed Oxygen 04/20/23 19:00 04/20/23 19:00 04/20/23 20:00 Temperature 97.8 F Pulse Rate 97 Pulse Rate [Left D orsalis Pedis] 106 H 92 Pulse Rate [Pulse Oximeter] Respiratory Rate 16 16 Blood Pressure Blood Pressure [Ri ght Arm] 93/44 L 96/47 L Pulse Oximetry 96 91 Oxygen Delivery Me thod Nasal Cannula Nasal Cannula Oxygen Flow Rate 1 1 Fraction of Inspir ed Oxygen 04/20/23 21:00 04/20/23 22:45 04/20/23 22:45 Temperature Pulse Rate Pulse Rate [Left D orsalis Pedis] 96 Pulse Rate [Pulse Oximeter] Respiratory Rate 16 16 16 Blood Pressure Blood Pressure [Ri t Arm] 115/59 L Pulse Oximetry 92 89 Oxygen Delivery Me thod Nasal Cannula High Flow Nasal Ca nnula Oxygen Flow Rate 1 20 Fraction of Inspir ed Oxygen 30 04/20/23 22:45 04/20/23 22:56 04/21/23 02:00 Temperature 98.6 F Pulse Rate 104 H Pulse Rate [Left D orsalis Pedis] Pulse Rate [Pulse Oximeter] 88 Respiratory Rate 16 16 Blood Pressure [facility] 116/64 Pulse Oximetry 89 91 Oxygen Delivery Me thod High Flow Nasal Ca nnula High Flow Nasal Ca nnula Oxygen Flow Rate 20 20 Fraction of Inspir ed Oxygen 30 30 04/21/23 04:00 04/21/23 05:17 04/21/23 06:00 Temperature 98 F Pulse Rate 75 Pulse Rate [Left D orsalis Pedis] Pulse Rate [Pulse Oximeter] 82 87 Respiratory Rate 16 16 Blood Pressure Blood Pressure [facility] 111/64 119/70 Pulse Oximetry 94 90 Oxygen Delivery Me thod High Flow Nasal Ca nnula High Flow Nasal Ca nnula Oxygen Flow Rate 20 15 Fraction of Inspir ed Oxygen 30 25 04/21/23 07:00 04/21/23 07:00 04/21/23 07:00 Temperature 97.4 F L Pulse Rate Pulse Rate [Left D orsalis Pedis] Pulse Rate [Pulse Oximeter] 101 H 104 H Respiratory Rate 20 20 20 Blood Pressure Blood Pressure [facility] 119/70 Pulse Oximetry 91 91 Oxygen Delivery Me thod High Flow Nasal Ca nnula High Flow Nasal Ca nnula Oxygen Flow Rate 20 20 Fraction of Inspir ed Oxygen 25 25 Labs Labs: Laboratory Results - last 24 hr 04/21/23 04/21/23 05:54 07:50 WBC 10.41 RBC 2.71 L Hgb 8.6 L Hct 26.8 L MCV 99 MCH 32 MCHC 32 RDW Coeff of Penny 14.3 Plt Count 127 L Neut % (Auto) 87.8 H Lymph % (Auto) 6.7 L [place] % (Auto) 5.0 Eos % (Auto) 0.0 Baso % (Auto) 0.1 Neut # (Auto) 9.10 H Lymph # (Auto) 0.70 L [place] # (Auto) 0.50 Eos # (Auto) 0.00 Baso # (Auto) 0.01 Abs Immat Gran (auto) 0.04 Imm/Tot Granulo (auto) 0.4 Sodium 136 Potassium 3.7 Chloride 101 Carbon Dioxide 30 Anion Gap 5 L BUN 19 Creatinine 0.7 Estimated Creat Clear 34.91 Estimated GFR 90 Glucose 110 Calcium 8.1 L SARS-CoV-2 (PCR) Negative SARS-CoV-2 Influenza Type A (PCR) Negative PCR FLU A Influenza Type B (PCR) Negative PCR FLU B RSV (PCR) Negative PCR RSV
[2023-04-21] MEDS: LACTATED RINGERS 1000 ML 1,000 ML 75 ML IV (15:34)
--- NOTE | 2023-04-21 15:53 | PC.NURSE ---
Pt friendly and cooperative, occasional confusion and reports of visual hallucinations including bats on the privacy curtain and mice on the floor. Pt has so far been easily reoriented. VS WNL. She spend several hours in the chair this afternoon, transferring with heavy assist x2. Needs encouragement to bear weight to surgical leg. Urine output continues to be low, 175cc this shift. 500cc LR bolus given and maintenance fluids continue to run. Encouraging PO fluid intake. Surgical dressing to left hip C,D,&I, Active ice as tolerated.
[2023-04-21] MEDS: THIAMINE 100 MG TABLET PO (17:59)
[2023-04-21] MEDS: NICOTINE 14 mg PATCH 1 PATCH TRANSDERMA (17:59)
[2023-04-21] MEDS: MIRTAZAPINE 15 MG TABLET 7.5 MG PO (20:06)
[2023-04-21] MEDS: ATORVASTATIN 10 MG TABLET 20 MG PO (20:06)
--- NOTE | 2023-04-21 22:51 | PC.NURSE ---
End of shift [id number]: Patient alert, oriented to self and birthdate, noted to have intermittent confusion as to where she is and why. Patient is easily reoriented and redirected. CIWA's 6 and 5 respectively, patient is having intermittent visual hallucinations, patient was seeing mice on the floor and kid's toys, these hallucinations are not disturbing to her. Pain well managed with current regimen, dressing to left hip clean, dry and intact. Continues to require hi flow, patient was on 15/25 but required increase to 20/40 while sleeping. [place] draining clear, pale yellow urine with 1100cc out.
[2023-04-22] VITALS (11 sets, daily range): BP systolic 109–166; BP diastolic 53–100; PULSE 83–106; RESP 16–22; TEMP 36.3–37.1; O2SAT 88–97
[2023-04-22] MEDS: IPRAT-ALBUT 0.5-2.5 MG/3 ML NEB 1 NEB IH ×4 (01:14→18:18)
[2023-04-22] MEDS: cefTRIAXone 2 GM in 0.9 % SODIUM CHLORIDE Mini-bag 100 ML IVPB (01:14)
[2023-04-22 06:49] LABS: Basophils Absolute Auto 0.01 K/uL (0.00-0.30); Basophils Percent Auto 0.1 % (0.0-3.0); Eosinophils Absolute Auto 0.01 K/uL (0.00-0.50); Eosinophils Percent Auto 0.1 % (0.0-7.0); Hematocrit 28.3 % (33.0-51.0); Immature Granulocytes Abs Auto 0.02 K/uL (0.00-0.30); Immature Granulocytes Pct Auto 0.2 %; Lymphocytes Absolute Auto 2.02 K/uL (0.90-2.90); Lymphocytes Percent Auto 24.3 % (20-44); Mean Corpuscular HGB Conc 32 gm/dL (32-36); Mean Corpuscular Hemoglobin 32 pg (26-34); Mean Corpuscular Volume 99 fL (80-100); Monocytes Percent Auto 6.1 % (0.0-11.0); Neutrophils Absolute Auto 5.73 K/uL (1.7-7.0); Neutrophils Percent Auto 69.2 % (42.0-72.0); Platelet Count* 157 K/uL (140-440); RDW Coefficient of Variation % 14.4 % (11.5-15.5); Red Blood Count 2.86 m/uL (4.00-5.20)
[2023-04-22 07:04] LABS: Slide Review Reflex No
[2023-04-22 07:08] LABS: Chloride* 101 mmol/L (96-114); Sodium* 137 mmol/L (135-149)
[2023-04-22 07:10] LABS: Creatinine* 0.6 mg/dL (0.5-1.5); Est. Creatinine Clearance* 34.91; Estimated Glomerular Filt Rate 94 ml/min
[2023-04-22 07:11] LABS: Anion Gap 4 mEq/L (7-15); Blood Urea Nitrogen* 14 mg/dL (7-30); Carbon Dioxide* 32 mmol/L (20-32); Glucose* 82 mg/dL (60-115)
--- NOTE | 2023-04-22 08:32 | CRLHL7_ITS ---
For Patients: As a result of the Cures Act, medical imaging exams and procedure reports are released immediately into your electronic medical record. You may view this report before your referring provider. If you have questions, please contact your health care provider. INDICATION: hypoxia HISTORY: Hypoxia. COMPARISON: CT of the chest, 04/20/2023. TECHNIQUE: Chest, 2 portable views. FINDINGS: There is degenerative arthrosis at both AC joints. Heart size and pulmonary vasculature are normal. There is no acute airspace disease. There is no pneumothorax. The central airway is normal. The osseous structures are intact. IMPRESSION: There is no acute airspace disease. Report called to the pharmacist in charge, 04/22/23, 0959 hours. Dictated by Eligio Brooks MD @ 04/22/2023 10:02:05 AM Dictated by: Eligio Brooks MD @ 04/22/2023 10:02:09 (Electronically Signed)
[2023-04-22] MEDS: OXYCODONE 5 MG TABLET PO ×4 (08:57→20:32)
[2023-04-22] MEDS: MULTIVITAMIN/MINERALS 1 TABLET 1 TAB PO (08:58)
[2023-04-22] MEDS: CYANOCOBALAMIN (VITAMIN B-12) 500 MCG TABLET 1000 MCG PO (08:58)
[2023-04-22] MEDS: FOLIC ACID 1 MG TABLET PO (08:58)
[2023-04-22] MEDS: RIVAROXABAN 10 MG TABLET PO (08:58)
[2023-04-22] MEDS: POTASSIUM BICARB 25 MEQ EFFERVESCENT TAB PO ×3 (08:58→11:16)
[2023-04-22] MEDS: guaiFENesin 600 MG TAB.ER.12H PO ×2 (08:58→20:33)
[2023-04-22] MEDS: SENNOSIDES 1 TAB TABLET 2 TAB PO ×2 (08:58→20:32)
[2023-04-22] MEDS: SODIUM CHLORIDE 0.9 % (FLUSH) 10 ML SYRINGE 5 ML IVF ×2 (08:59→20:34)
[2023-04-22 09:04] LABS: Procalcitonin* 0.35 ng/mL (<0.50)
[2023-04-22 09:12] LABS: NT Pro B Type NatriureticPept* 4720 pg/mL; Troponin I* < 0.01 ng/mL (0.01-0.04)
--- NOTE | 2023-04-22 09:15 | RESP.RT ---
Patient continues on HFNC; increased on previous shift to Flow 20 Lpm, FiO2 40%, temperature 36 degrees (C) to maintain SaO2 >85%. BBS diminished all ramirez with fine crackles all ramirez greater in RLL. Patient to sleepy this AM to do PEP/IS, pulling Oxygen off occasionally decreasing her SaO2 <82%. Goal will be to wean HFNC as patient tolerates.
[2023-04-22 09:48] LABS: HCO3 VBG 34 mmol/L (21-28); PCO2 VBG 49 mmHG (40-50); PO2 VBG 20.5 mmHG (25-47); pH VBG 7.454 (7.32-7.43)
--- NOTE | 2023-04-22 12:46 | P.IMPN_ITS ---
Progress Note: A&P Assessment and plan (1) Hypoxic respiratory failure: Problem details: Patient's hypoxic respiratory failure appears to be combination of underlying COPD, opioid use, undiagnosed sleep apnea. Possibly aspiration or atelectasis contributing. She received 3 days of IV ceftriaxone/azithromycin for possible pneumonia without other clinically obvious signs and symptoms of pneumonia other than hypoxia. No evidence for decompensated heart failure. She has not having marked prolonged expiratory phase or wheezing on respiratory exam today and receives nebs for her COPD. Status: Acute (2) COPD (chronic obstructive pulmonary disease): Problem details: New diagnosis. Nebulizer treatments. Supplemental oxygen and monitor for CO2 retention. Status: Acute (3) Fracture of hip, left, closed: Problem details: - fracture occurred on 04/17/2023, acute comminuted fracture of left proximal femur with mixed intertrochanteric and femoral neck involvement - patient presented for medical assessment on 04/19/[address] Neri 04/20/2023. No apparent postoperative complications Status: Acute (4) Alcohol dependence: Problem details: Visual hallucinations intermittently. I favor alcohol hallucinosis or hospital- acquired delirium. Does not appear to be having alcohol withdrawal delirium with unstable vitals and autonomic instability - since 2006 - 2 shots of vodka every night - CIWA protocol for now Status: Acute (5) Tobacco dependence: Problem details: - 1 pack per day - nicotine patch for now Status: Acute (6) Weight loss: Problem details: - dx 12/26/2022 - 01/10/2023 weight 50.9 kg, BMI 19.26 Status: Acute (7) Unstable gait: Problem details: - Multifactorial: Alcohol dependence, folate deficiency, vitamin B12 deficiency, and possibly in association with history of stroke as well. Postoperatively will assess mobility. Will need care home facility for rehab Status: Acute (8) Delirium: Problem details: Currently having delirium. Unclear if this is alcohol hallucinosis or hospital- acquired delirium or combination of both. Has not required significant lorazepam. Status: Acute (9) Discharge planning issues: Problem details: Patient is anxious to go home. Currently she needs assist of more than 1 person to transfer. Appears she will need care home facility for rehab and management of hypoxia Status: Acute Plan Continue in-hospital to manage hypoxic respiratory failure, delirium, rehab from hip fracture and surgery. Time Spent With Patient Total time spent: Total time spent today is 55 minutes, 40 minutes in coordination of care discussing with patient and and other providers ongoing evaluation management of hypoxia and disposition Subjective Date Seen: 04/22/23 Interval history: 77-year-old female admitted with left femoral neck and intertrochanteric fracture from a fall at home from standing height. She has had hypoxic respiratory failure since admission. On and off of high-flow oxygen. She underwent ORIF with Dr. Neri yesterday. No complications. Postoperatively she continues to have oxygen requirement with high-flow alternating with regular nasal cannula. She is not dyspneic. She reports no cough or fever. Her pain is adequately controlled. She has developed some delirium with occasional report of seeing bats and rats in her room. She is anxious to go home. She required assist of 2 to go from bed to chair today. Overnight she was back on high-flow oxygen. This morning when I see her she is breathing comfortably on room air with O2 sats at 95%. Exam Narrative: Exam Narrative: She is alert and oriented to her circumstances. Respirations with diminished breath sounds but otherwise clear without wheezing rales or rhonchi. Cardiovascular: S1, S2, regular rate and rhythm. Abdomen is soft. Bowel sounds are active. She has intact pulses sensation and motion in both feet and ankles. Const: Vital Signs, click to edit/add: Vital Signs - 24 hr 04/21/23 15:00 04/21/23 15:00 04/21/23 15:00 Temperature 97.9 F Pulse Rate [Pulse Oximeter] 86 86 Respiratory Rate 20 20 20 Blood Pressure [[facility] Arm] 107/89 Pulse Oximetry 95 95 Oxygen Delivery Me thod High Flow Nasal Ca nnula High Flow Nasal Ca nnula Oxygen Flow Rate 15 Fraction of Inspir ed Oxygen 25 04/21/23 19:00 04/22/23 01:00 04/22/23 01:00 Temperature 98.5 F 98.8 F Pulse Rate [Pulse Oximeter] 84 84 84 Respiratory Rate 22 18 18 Blood Pressure [Ri t Arm] 118/65 142/84 H Pulse Oximetry 91 97 Oxygen Delivery Me thod High Flow Nasal Ca nnula High Flow Nasal Ca nnula Oxygen Flow Rate 15 20 Fraction of Inspir ed Oxygen 25 40 04/22/23 01:00 04/22/23 03:00 04/22/23 07:00 Temperature 98.3 F Pulse Rate [Pulse Oximeter] 106 H Respiratory Rate 18 16 20 Blood Pressure [Ri ght Arm] 136/83 Pulse Oximetry 97 96 Oxygen Delivery Me thod High Flow Nasal Ca nnula High Flow Nasal Ca nnula Oxygen Flow Rate 20 20 Fraction of Inspir ed Oxygen 40 30 04/22/23 07:00 04/22/23 07:00 04/22/23 09:00 Temperature 97.6 F 97.6 F Pulse Rate [Pulse Oximeter] 106 H 106 H Respiratory Rate 20 20 20 Blood Pressure [Ri ght Arm] 138/89 138/89 Pulse Oximetry 88 88 88 Oxygen Delivery Me thod High Flow Nasal Ca nnula High Flow Nasal Ca nnula High Flow Nasal Ca nnula Oxygen Flow Rate 20 20 20 Fraction of Inspir ed Oxygen 25 25 25 04/22/23 09:13 04/22/23 11:00 Temperature 97.4 F L Pulse Rate [Pulse Oximeter] 93 Respiratory Rate 22 20 Blood Pressure [Ri ght Arm] 166/100 H Pulse Oximetry 92 95 Oxygen Delivery Me thod High Flow Nasal Ca nnula Nasal Cannula Oxygen Flow Rate 20 2 Fraction of Inspir ed Oxygen 40 Documenting provider has reviewed patient's vital signs: yes Labs Labs: Laboratory Results - last 24 hr 04/22/23 04/22/23 04/22/23 06:00 08:33 09:41 WBC 8.30 RBC 2.86 L Hgb 9.0 L Hct 28.3 L MCV 99 MCH 32 MCHC 32 RDW Coeff of Penny 14.4 Plt Count 157 Neut % (Auto) 69.2 Lymph % (Auto) 24.3 [place] % (Auto) 6.1 Eos % (Auto) 0.1 Baso % (Auto) 0.1 Neut # (Auto) 5.73 Lymph # (Auto) 2.02 [place] # (Auto) 0.50 Eos # (Auto) 0.01 Baso # (Auto) 0.01 Abs Immat Gran (auto) 0.02 Imm/Tot Granulo (auto) 0.2 VBG pH 7.454 H VBG pCO2 49 VBG pO2 20.5 L VBG HCO3 34 H Sodium 137 Potassium 3.0 L Chloride 101 Carbon Dioxide 32 Anion Gap 4 L BUN 14 Creatinine 0.6 Estimated Creat Clear 34.91 Estimated GFR 94 Glucose 82 Calcium 8.0 L Troponin I < 0.01 L NT-Pro-B Natriuret Pep 4720 Procalcitonin 0.35 Lab Acknowledgement Test Added
--- NOTE | 2023-04-22 14:32 | PC.NURSE ---
Shift Note: Pt friendly and cooperative, continues to experience intermittent visual hallucinations but has been easily reoriented. CIWAS unremarkable. VSS, pt successfully weaned to 1L/O2 via NC at rest with SpO2 88-92%. She does need increased flow with activity, 2-3L to use BSC or move to chair. Needs a heavy assist of 2 with GB and walker for ambulation as well as cues to move feet. Pain well controlled with Tylenol and PRN Oxycodone. Encouraging fluid intake, Fermín dia'd this morning and pt has not yet voided.
[2023-04-22] MEDS: ACETAMINOPHEN 325 MG TABLET 650 MG PO (14:45)
[2023-04-22] MEDS: NICOTINE 14 mg PATCH 1 PATCH TRANSDERMA (18:17)
[2023-04-22] MEDS: ATORVASTATIN 10 MG TABLET 20 MG PO (20:32)
[2023-04-22] MEDS: MIRTAZAPINE 15 MG TABLET 7.5 MG PO (20:33)
--- NOTE | 2023-04-22 22:47 | PC.NURSE ---
End of shift report [id number]:Patient alert, oriented to self, date of and month. Pain to left hip reported, well managed with current regimen. Transferred with moderate assist x 4 with gait belt and walker. Patient up to commode and in chair for dinner, patient able to walk 10 feet with assist. O2 at 1L per nasal cannula, denies any shortness of breath.
[2023-04-23] VITALS (9 sets, daily range): BP systolic 115–148; BP diastolic 68–96; PULSE 87–98; RESP 18–22; TEMP 36.6–37.1; O2SAT 83–99
[2023-04-23] MEDS: IPRAT-ALBUT 0.5-2.5 MG/3 ML NEB 1 NEB IH ×5 (00:17→23:27)
[2023-04-23] MEDS: OXYCODONE 5 MG TABLET PO ×3 (02:11→13:53)
--- NOTE | 2023-04-23 06:02 | PC.NURSE ---
[id number]: Patient pleasant and cooperative. Denies visual hallucinations. Requires reminders to use [employer] and IS. Frequent T&R. Continent/incontinent of B&B. A2/pivot to BSC and chair. Measurable L. leg weakness but tolerated well overall. Rates L. leg/hip pain 3-7/10. PRN Oxycodone x1 for relief. Dressing to L. hip C/D/I. CMS intact. O2 sats 87-93% on 2 Lt NC.
[2023-04-23 06:29] LABS: Basophils Absolute Auto 0.01 K/uL (0.00-0.30); Basophils Percent Auto 0.1 % (0.0-3.0); Eosinophils Absolute Auto 0.08 K/uL (0.00-0.50); Eosinophils Percent Auto 0.9 % (0.0-7.0); Hematocrit 31.8 % (33.0-51.0); Hemoglobin* 10.1 gm/dL (12.0-16.0); Immature Granulocytes Abs Auto 0.01 K/uL (0.00-0.30); Immature Granulocytes Pct Auto 0.1 %; Lymphocytes Absolute Auto 2.14 K/uL (0.90-2.90); Lymphocytes Percent Auto 25.4 % (20-44); Mean Corpuscular HGB Conc 32 gm/dL (32-36); Mean Corpuscular Hemoglobin 32 pg (26-34); Mean Corpuscular Volume 100 fL (80-100); Monocytes Percent Auto 5.9 % (0.0-11.0); Neutrophils Percent Auto 67.6 % (42.0-72.0); Platelet Count* 190 K/uL (140-440); Red Blood Count 3.18 m/uL (4.00-5.20); White Blood Count* 8.44 K/uL (4.50-11.00)
[2023-04-23 06:39] LABS: Chloride* 98 mmol/L (96-114); Potassium* 4.4 mmol/L (3.6-5.1); Sodium* 135 mmol/L (135-149)
[2023-04-23 06:42] LABS: Anion Gap 3 mEq/L (7-15); Blood Urea Nitrogen* 12 mg/dL (7-30); Calcium* 8.2 mg/dL (8.4-10.6); Carbon Dioxide* 34 mmol/L (20-32); Creatinine* 0.6 mg/dL (0.5-1.5); Est. Creatinine Clearance* 34.91; Estimated Glomerular Filt Rate 94 ml/min; Glucose* 90 mg/dL (60-115)
[2023-04-23 06:43] LABS: Slide Review Reflex No
[2023-04-23] MEDS: SENNOSIDES 1 TAB TABLET 2 TAB PO ×2 (09:24→20:15)
[2023-04-23] MEDS: MULTIVITAMIN/MINERALS 1 TABLET 1 TAB PO (09:24)
[2023-04-23] MEDS: guaiFENesin 600 MG TAB.ER.12H PO ×2 (09:24→20:16)
[2023-04-23] MEDS: RIVAROXABAN 10 MG TABLET PO (09:24)
[2023-04-23] MEDS: CYANOCOBALAMIN (VITAMIN B-12) 500 MCG TABLET 1000 MCG PO (09:24)
[2023-04-23] MEDS: FOLIC ACID 1 MG TABLET PO (09:24)
[2023-04-23] MEDS: SODIUM CHLORIDE 0.9 % (FLUSH) 10 ML SYRINGE 5 ML IVF ×2 (09:25→20:17)
--- NOTE | 2023-04-23 11:46 | PC.SOCIAL ---
Addendum entered by ARELIS Zaidi 04/23/23 11:54: [facility] is declining pt due to alcohol and tobacco use. 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 Original Note: Discharge planning: Met with pt and regarding d/c plan. Both are in agreement with recommendation for short term rehab stay at a [facility] facility at discharge if covered by insurance. They are requesting placement in a facility in [place] as first choice and a facility in [place] as second choice. Called [facility] and spoke with Cyndie who states they will not have a bed until and that they could evaluate pt for a shared room that will be available for . Called Renetta of [facility] and left message requesting a call back. Faxed information to Renetta and [facility] and awaiting calls back regarding decision on admit. 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
[2023-04-23] MEDS: ACETAMINOPHEN 325 MG TABLET 650 MG PO (13:54)
--- NOTE | 2023-04-23 15:07 | PC.NURSE ---
End of shift: patient alert and oriented x3. Patient up to bedside commode and to the chair with heavy 2 assist. IV SL. patient tolerating a reg diet. at bedside. Plan: needs SNF placement. Patient on RA sating 90-93%.
--- NOTE | 2023-04-23 15:51 | PM.IMPN1 ---
Progress Note: A&P Assessment and plan (1) Hypoxic respiratory failure: Problem details: Patient's hypoxic respiratory failure appears to be combination of underlying COPD, opioid use, undiagnosed sleep apnea. Initial concern about aspiration or atelectasis. Briefly treated with antibiotics: She received 3 days of IV ceftriaxone/azithromycin for possible pneumonia without other clinically obvious signs and symptoms of pneumonia other than hypoxia. No evidence for decompensated heart failure. She has not having marked prolonged expiratory phase or wheezing on respiratory exam today and receives nebs for her COPD. Status: Acute (2) COPD (chronic obstructive pulmonary disease): Problem details: New diagnosis. Nebulizer treatments. Supplemental oxygen and monitor for CO2 retention. Status: Acute (3) Fracture of hip, left, closed: Problem details: - fracture occurred on 04/17/2023, acute comminuted fracture of left proximal femur with mixed intertrochanteric and femoral neck involvement - patient presented for medical assessment on 04/19/[address] Neri 04/20/2023. No apparent postoperative complications Status: Acute (4) Alcohol dependence: Problem details: Visual hallucinations intermittently. I favor this being hospital-acquired delirium as she has had no other evidence of alcohol withdrawal. Could be alcohol withdrawal hallucinosis.. Does not appear to be having alcohol withdrawal delirium since she has normal vitals and no autonomic instability. - since 2006 - 2 shots of vodka every night - CIWA protocol for now Status: Acute (5) Tobacco dependence: Problem details: - 1 pack per day - nicotine patch for now Status: Acute (6) Weight loss: Problem details: - dx 12/26/2022 - 01/10/2023 weight 50.9 kg, BMI 19.26 Status: Acute (7) Unstable gait: Problem details: - Multifactorial: Alcohol dependence, folate deficiency, vitamin B12 deficiency, and possibly in association with history of stroke as well. Postoperatively will assess mobility. Will need [facility] facility for rehab Status: Acute (8) Delirium: Problem details: Currently having delirium. Unclear if this is alcohol hallucinosis or hospital-acquired delirium or combination of both. Has not required significant lorazepam. Status: Acute (9) Discharge planning issues: Problem details: Patient is anxious to go home. Currently she needs assist of more than 1 person to transfer. Appears she will need [facility] facility for rehab and management of hypoxia Status: Acute Plan Continue in hospital pending [facility] facility discharge. Continue to monitor and manage pain, immobility and disability from fracture, delirium and hypoxia Time Spent With Patient Total time spent: Total time spent today is 55 minutes, 35 minutes in coordination of care discussing with patient, family and other providers ongoing management of recovery from hip fracture and hypoxia Subjective Date Seen: 04/23/23 Interval history: 77-year-old female admitted with left femoral neck and intertrochanteric fracture from a fall at home from standing height. She has had hypoxic respiratory failure since admission. On and off of high-flow oxygen. She underwent ORIF with Dr. Neri April 20. No complications. Postoperatively she continues to have oxygen requirement with high-flow alternating with regular nasal cannula. She is not dyspneic. She reports no cough or fever. Her pain is adequately controlled. She has developed some delirium with occasional report of seeing bats and rats in her room. She is anxious to go home. She required assist of 2 to go from bed to chair today. Overnight she continues to require supplemental oxygen but be on room air during the day with O2 sats in the mid 90s. She has no dyspnea. She is receiving supplemental oxygen at night. Exam Narrative: Exam Narrative: She is alert and appears in no distress. She is oriented to her circumstances. Respirations with mildly decreased breath sounds but fair air exchange in all lung ramirez. No marked wheezing rales or rhonchi. Cardiovascular: S1, S2, regular rate and rhythm. Abdomen is soft without tenderness or mass. Left hip has the development of moderate bruising without erythema. Distally she has intact pulses and sensation. No significant edema. Const: Vital Signs, click to edit/add: Vital Signs - 24 hr 04/22/23 17:00 04/22/23 19:00 04/22/23 21:00 Temperature 98.6 F 97.4 F L 97.4 F L Pulse Rate [Pulse Oximeter] 83 101 H 101 H Respiratory Rate 20 22 22 Blood Pressure [Ri ght Arm] 114/64 109/53 L 109/53 L Pulse Oximetry 91 95 95 Oxygen Delivery Me thod Nasal Cannula Nasal Cannula Nasal Cannula Oxygen Flow Rate 1 1 1 Fraction of Inspir ed Oxygen 40 04/23/23 00:09 04/23/23 00:20 04/23/23 03:36 Temperature 98.7 F 98.8 F Pulse Rate [Pulse Oximeter] 87 98 Respiratory Rate 22 22 22 Blood Pressure [Ri ght Arm] 145/86 H 146/76 H Pulse Oximetry 99 99 93 Oxygen Delivery Me thod Nasal Cannula Nasal Cannula Nasal Cannula Oxygen Flow Rate 2.0 1.0 2.0 Fraction of Inspir ed Oxygen 04/23/23 07:00 04/23/23 07:00 04/23/23 07:00 Temperature 97.8 F Pulse Rate [Pulse Oximeter] 95 95 Respiratory Rate 20 20 20 Blood Pressure [Ri ght Arm] 147/88 H Pulse Oximetry 95 95 Oxygen Delivery Me thod Nasal Cannula Nasal Cannula Oxygen Flow Rate 2.0 2.0 Fraction of Inspir ed Oxygen 40 04/23/23 11:00 04/23/23 15:30 04/23/23 15:30 Temperature 97.8 F 98.5 F Pulse Rate [Pulse Oximeter] 94 93 Respiratory Rate 20 18 18 Blood Pressure [Ri ght Arm] 131/96 H 115/68 Pulse Oximetry 94 89 89 Oxygen Delivery Me thod Room Air Room Air Room Air Oxygen Flow Rate 0 Fraction of Inspir ed Oxygen Documenting provider has reviewed patient's vital signs: yes Labs Labs: Laboratory Results - last 24 hr 04/23/23 06:03 WBC 8.44 RBC 3.18 L Hgb 10.1 L Hct 31.8 L MCV 100 MCH 32 MCHC 32 RDW Coeff of Penny 14.0 Plt Count 190 Neut % (Auto) 67.6 Lymph % (Auto) 25.4 [place] % (Auto) 5.9 Eos % (Auto) 0.9 Baso % (Auto) 0.1 Neut # (Auto) 5.70 Lymph # (Auto) 2.14 [place] # (Auto) 0.50 Eos # (Auto) 0.08 Baso # (Auto) 0.01 Abs Immat Gran (auto) 0.01 Imm/Tot Granulo (auto) 0.1 Sodium 135 Potassium 4.4 Chloride 98 Carbon Dioxide 34 H Anion Gap 3 L BUN 12 Creatinine 0.6 Estimated Creat Clear 34.91 Estimated GFR 94 Glucose 90 Calcium 8.2 L
--- NOTE | 2023-04-23 16:29 | PC.SOCIAL ---
Discharge planning: political worker contacted [facility] of [facility] and left a message asking if they had openings for a female bed, short-term rehab stay, as [facility] would be another preference for pt and her . Chucky called back and stated that this worker could send a referral over and they would review it in the morning. political worker faxed the referral for pt over this afternoon. Social work to follow-up as needed.
[2023-04-23] MEDS: NICOTINE 14 mg PATCH 1 PATCH TRANSDERMA (16:32)
--- NOTE | 2023-04-23 17:53 | PC.NURSE ---
Pt pleasant and talkative. Pt assist of two pivot transfer. Pt had no complaints of pain during shift (15-19).?Pt had family at bedside most of shift.
[2023-04-23] MEDS: MIRTAZAPINE 15 MG TABLET 7.5 MG PO (20:14)
[2023-04-23] MEDS: MELATONIN 3 MG TABLET PO (20:14)
[2023-04-23] MEDS: ATORVASTATIN 10 MG TABLET 20 MG PO (20:15)
[2023-04-24] VITALS (8 sets, daily range): BP systolic 125–160; BP diastolic 68–82; PULSE 89–100; RESP 18–20; TEMP 36.5–36.9; O2SAT 88–97
[2023-04-24] MEDS: OXYCODONE 5 MG TABLET PO ×2 (04:49→11:17)
[2023-04-24] MEDS: IPRAT-ALBUT 0.5-2.5 MG/3 ML NEB 1 NEB IH ×4 (05:31→23:51)
--- NOTE | 2023-04-24 06:57 | PC.NURSE ---
19-07: pleasant and cooperative. Calls appropriately. A x 2 pivot to BSC, tolerated fair. c/o pain 7/10 in left hip, prn Oxy given, offered relief. 2x Large BM. Pts O2 sats dropped quickly into the 70s on RA when asleep x1, speech writer went to assess & woke pt, she quickly rebounded to 90% on RA. Continued RA throughout the night & pt O2 maintained >88%. Moist productive cough, pt swallows sputum despite reminders and education. 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
[2023-04-24 06:58] LABS: Basophils Absolute Auto 0.01 K/uL (0.00-0.30); Basophils Percent Auto 0.2 % (0.0-3.0); Eosinophils Absolute Auto 0.08 K/uL (0.00-0.50); Eosinophils Percent Auto 1.3 % (0.0-7.0); Hematocrit 29.3 % (33.0-51.0); Hemoglobin* 9.4 gm/dL (12.0-16.0); Immature Granulocytes Abs Auto 0.05 K/uL (0.00-0.30); Immature Granulocytes Pct Auto 0.8 %; Lymphocytes Absolute Auto 1.28 K/uL (0.90-2.90); Lymphocytes Percent Auto 20.1 % (20-44); Mean Corpuscular HGB Conc 32 gm/dL (32-36); Mean Corpuscular Hemoglobin 32 pg (26-34); Mean Corpuscular Volume 100 fL (80-100); Monocytes Percent Auto 6.6 % (0.0-11.0); Neutrophils Absolute Auto 4.54 K/uL (1.7-7.0); Platelet Count* 192 K/uL (140-440); RDW Coefficient of Variation % 13.9 % (11.5-15.5); Red Blood Count 2.94 m/uL (4.00-5.20); White Blood Count* 6.38 K/uL (4.50-11.00)
[2023-04-24 07:17] LABS: Slide Review Reflex No
[2023-04-24 07:44] LABS: Chloride* 96 mmol/L (96-114)
[2023-04-24 07:45] LABS: Potassium* 3.8 mmol/L (3.6-5.1); Sodium* 132 mmol/L (135-149)
[2023-04-24 07:48] LABS: Anion Gap 4 mEq/L (7-15); Blood Urea Nitrogen* 11 mg/dL (7-30); Calcium* 8.1 mg/dL (8.4-10.6); Carbon Dioxide* 32 mmol/L (20-32); Creatinine* 0.6 mg/dL (0.5-1.5); Est. Creatinine Clearance* 34.91; Estimated Glomerular Filt Rate 94 ml/min; Glucose* 92 mg/dL (60-115)
[2023-04-24] MEDS: MULTIVITAMIN/MINERALS 1 TABLET 1 TAB PO (08:46)
[2023-04-24] MEDS: guaiFENesin 600 MG TAB.ER.12H PO ×2 (08:46→21:30)
[2023-04-24] MEDS: CYANOCOBALAMIN (VITAMIN B-12) 500 MCG TABLET 1000 MCG PO (08:46)
[2023-04-24] MEDS: FOLIC ACID 1 MG TABLET PO (08:46)
[2023-04-24] MEDS: RIVAROXABAN 10 MG TABLET PO (08:46)
[2023-04-24] MEDS: SENNOSIDES 1 TAB TABLET 2 TAB PO ×2 (08:46→21:30)
[2023-04-24] MEDS: SODIUM CHLORIDE 0.9 % (FLUSH) 10 ML SYRINGE 5 ML IVF ×2 (08:47→21:31)
--- NOTE | 2023-04-24 12:37 | PC.SOCIAL ---
Addendum entered by SHELBY Solano 04/24/23 14:43: Discharge planning: Completed Pre-admission screening for pt. PAS#[id number]. Social work to follow-up as needed. Original Note: Discharge planning: Pt has been accepted to [facility] in [place] tomorrow. Pt needs to be there anytime before 2:30pm. Will plan on using non-emergency EMS transport due to hip fracture and two person assistance needed. Social work to follow-up as needed.
--- NOTE | 2023-04-24 13:38 | P.IMPN_ITS ---
Progress Note: A&P Assessment and plan (1) Hypoxic respiratory failure: Problem details: Patient's hypoxic respiratory failure appears to be combination of underlying COPD, opioid use, undiagnosed sleep apnea. Initial concern about aspiration or atelectasis. Briefly treated with antibiotics: She received 3 days of IV ceftriaxone/azithromycin for possible pneumonia without other clinically obvious signs and symptoms of pneumonia other than hypoxia. No evidence for decompensated heart failure. She has not having marked prolonged expiratory phase or wheezing on respiratory exam today and receives nebs for her COPD. Status: Acute (2) COPD (chronic obstructive pulmonary disease): Problem details: New diagnosis. Nebulizer treatments. Supplemental oxygen and monitor for CO2 retention. Status: Acute (3) Fracture of hip, left, closed: Problem details: - fracture occurred on 04/17/2023, acute comminuted fracture of left proximal femur with mixed intertrochanteric and femoral neck involvement - patient presented for medical assessment on 04/19/[address] Neri 04/20/2023. No apparent postoperative complications Status: Acute (4) Alcohol dependence: Problem details: Visual hallucinations intermittently. I favor this being hospital-acquired delirium as she has had no other evidence of alcohol withdrawal. Could be alcohol withdrawal hallucinosis.. Does not appear to be having alcohol withdrawal delirium since she has normal vitals and no autonomic instability. - since 2006 - 2 shots of vodka every night No obvious signs of alcohol withdrawal other than possible visual hallucinations Status: Acute (5) Tobacco dependence: Problem details: - 1 pack per day - nicotine patch for now Status: Acute (6) Weight loss: Problem details: - dx 12/26/2022 - 01/10/2023 weight 50.9 kg, BMI 19.26 Status: Acute (7) Unstable gait: Problem details: - Multifactorial: Alcohol dependence, folate deficiency, vitamin B12 deficiency, and possibly in association with history of stroke as well. Postoperatively will assess mobility. Will need care home facility for rehab Status: Acute (8) Delirium: Problem details: Had visual hallucinations intermittently postoperative. Now resolved. No obvious alcohol withdrawal delirium Status: Acute (9) Discharge planning issues: Problem details: Patient is anxious to go home. Currently she needs assist of more than 1 person to transfer. Appears she will need care home facility for rehab and management of hypoxia Status: Acute Plan Continue in hospital pending discharge to care home facility for ongoing rehab. Continue to monitor hypoxia. Continue therapy to improve mobility. Time Spent With Patient Total time spent: Total time spent today is 35 minutes, 25 minutes in coordination care discussing with patient other providers ongoing management of rehab and hypoxia Subjective Date Seen: 04/24/23 Interval history: 77-year-old female admitted with left femoral neck and intertrochanteric fracture from a fall at home from standing height. She has had hypoxic respiratory failure since admission. On and off of high-flow oxygen. She underwent ORIF with Dr. Sunil Neri April 20. No complications. Postoperatively she had oxygen requirement with high-flow alternating with regular nasal cannula. She is not dyspneic. She reports no cough or fever. Her pain is adequately controlled. She has developed some delirium with occasional report of seeing bats and rats in her room. She is anxious to go home. She required assist of 2 to go from bed to chair today. Last night she was managed without supplemental oxygen overnight and did fairly well with occasional O2 sats into the upper 80s. She reports no dyspnea and O2 sats are low to mid 90s on room air during the day. No further reports of visual hallucinations or delirium. Exam Narrative: Exam Narrative: She is alert and appears in no distress. She is more interactive today and more accepting of need for rehab. Respirations are clear to auscultation with a rare basilar wheeze and crackle. Fair air exchange in all lung ramirez. Cardiovascular: S1, S2, regular rate and rhythm. Abdomen is soft without tenderness or mass. Left hip wound with slight bruising but no erythema or drainage. Distally she has intact pulses and strength and motion. Const: Vital Signs, click to edit/add: Vital Signs - 24 hr 04/23/23 15:30 04/23/23 15:30 04/23/23 19:53 Temperature 98.5 F 98.5 F Pulse Rate [Pulse Oximeter] 93 87 Respiratory Rate 18 18 20 Blood Pressure [Ri ght Arm] 115/68 129/68 Pulse Oximetry 89 89 90 Oxygen Delivery Me thod Room Air Room Air Room Air Oxygen Flow Rate 0 04/23/23 20:41 04/23/23 23:00 04/23/23 23:00 Temperature Pulse Rate [Pulse Oximeter] Respiratory Rate 20 Blood Pressure [Ri ght Arm] Pulse Oximetry 83 L 90 Oxygen Delivery Me thod Room Air Room Air Oxygen Flow Rate 0 04/23/23 23:00 04/24/23 03:00 04/24/23 07:00 Temperature 98.5 F Pulse Rate [Pulse Oximeter] 94 89 95 Respiratory Rate 20 20 20 [facility] 148/90 H Pulse Oximetry 90 88 Oxygen Delivery Me thod Room Air Room Air Oxygen Flow Rate 04/24/23 07:00 04/24/23 07:00 04/24/23 10:34 Temperature 98.5 F 98.3 F Pulse Rate [Pulse Oximeter] 95 100 Respiratory Rate 20 20 Blood Pressure [facility]] 160/82 H 125/69 Pulse Oximetry 96 96 97 Oxygen Delivery Me thod Room Air Room Air Room Air Oxygen Flow Rate 0 Documenting provider has reviewed patient's vital signs: yes Labs Labs: Laboratory Results - last 24 hr 04/24/23 06:21 WBC 6.38 RBC 2.94 L Hgb 9.4 L Hct 29.3 L MCV 100 MCH 32 MCHC 32 RDW Coeff of Penny 13.9 Plt Count 192 Neut % (Auto) 71.0 Lymph % (Auto) 20.1 [place] % (Auto) 6.6 Eos % (Auto) 1.3 Baso % (Auto) 0.2 Neut # (Auto) 4.54 Lymph # (Auto) 1.28 [place] # (Auto) 0.40 Eos # (Auto) 0.08 Baso # (Auto) 0.01 Abs Immat Gran (auto) 0.05 Imm/Tot Granulo (auto) 0.8 Sodium 132 L Potassium 3.8 Chloride 96 Carbon Dioxide 32 Anion Gap 4 L BUN 11 Creatinine 0.6 Estimated Creat Clear 34.91 Estimated GFR 94 Glucose 92 Calcium 8.1 L
--- NOTE | 2023-04-24 14:24 | PC.NURSE ---
End of shift: patient alert and oriented x3. Patient up to bedside commode and to the chair with heavy 2 assist d/t reluctance to put pressure on left leg, and fear of falling. IV SL. patient tolerating a reg diet. at bedside. Plan: patient will go to [facility] via non-emergent transport tomorrow 04/25/23 before 1430. Patient on RA sating 90-93%.
[2023-04-24] MEDS: NICOTINE 14 mg PATCH 1 PATCH TRANSDERMA (16:31)
--- NOTE | 2023-04-24 19:42 | PC.NURSE ---
Shift note [id number]: Pt has been denying pain when asked and declined ice pack when offered this afternoon. VSS and pt noted to be afebrile. Pt pivot transfers with heavy assist of 2. She is scheduled to discharge to [facility] in [place] tomorrow via non-emergent EMS. Surgical incisions to L hip noted to have no s/sx of infection upon inspection. IV SL. Pt continues to tolerate regular diet with approximately 50% food intake with supper. O2 sat 93% on RA. Pt alert & oriented x 3 with intermittent forgetfulness. ?
[2023-04-24] MEDS: ATORVASTATIN 10 MG TABLET 20 MG PO (21:29)
[2023-04-24] MEDS: MIRTAZAPINE 15 MG TABLET 7.5 MG PO (21:29)
[2023-04-24] MEDS: MELATONIN 3 MG TABLET PO (21:30)
[2023-04-25 02:55] VITALS: RESP 16
[2023-04-25 06:00] VITALS: RESP 18
[2023-04-25] MEDS: IPRAT-ALBUT 0.5-2.5 MG/3 ML NEB 1 NEB IH (06:13)
--- NOTE | 2023-04-25 06:40 | PC.NURSE ---
Shift note 23-07: Pt continues to lack motivation and move slowly. L hip inc intact w/ scabbing. Lg BM. Plans to DC to [facility] today via non-emergent transport @ 1030.
[2023-04-25 07:00] VITALS: PULSE 96; RESP 16
[2023-04-25 07:58] VITALS: RESP 16; O2SAT 90
[2023-04-25 07:59] VITALS: BP 121/69; PULSE 96; RESP 16; TEMP 36.5; O2SAT 90
[2023-04-25] MEDS: CYANOCOBALAMIN (VITAMIN B-12) 500 MCG TABLET 1000 MCG PO (09:14)
[2023-04-25] MEDS: guaiFENesin 600 MG TAB.ER.12H PO (09:15)
[2023-04-25] MEDS: MULTIVITAMIN/MINERALS 1 TABLET 1 TAB PO (09:15)
[2023-04-25] MEDS: FOLIC ACID 1 MG TABLET PO (09:15)
[2023-04-25] MEDS: RIVAROXABAN 10 MG TABLET PO (09:15)
[2023-04-25] MEDS: SODIUM CHLORIDE 0.9 % (FLUSH) 10 ML SYRINGE 5 ML IVF (09:16)
--- NOTE | 2023-04-25 09:43 | PC.NURSE ---
Taffy Candy Maker attempted to call [facility] 3 times since 929 in order to give report to SNF. Voicemail left requesting call back.
--- NOTE | 2023-04-25 09:46 | PC.NURSE ---
Supervisor [employer] Mill has attempted to call [facility] in [place] 3 times since 929 to give report to SNF. No option to leave voicemail to call back. Will attempt again before discharge.
--- NOTE | 2023-04-25 10:49 | PC.NURSE ---
Pt discharged to [facility] at 10:38 by non-emergent transport using heavy pivot transfer with assist of 2. Pt alert & oriented x 4 prior to discharge and denied pain when asked. IVs to bilateral arms removed prior to discharge. Pt noted to have one large loose stool this morning. Gas Systems Worker held AM dose of Senna as pt is noted to be taking 4 tabs of this daily and has not taken PRN Oxycodone in nearly 24 hours. VSS and pt afebrile this morning. Lung sounds have been clear to all lobes bilaterally. Gas Systems Worker once again attempted to call [facility] in [place] to give report at this time though phone rings and then states number temporarily unavailable with no option to leave voicemail to request call back. ZULEIKA has faxed discharge paperwork to [facility] in [place].
--- NOTE | 2023-04-25 11:03 | PC.SOCIAL ---
Discharge planning: athletic turf worker provided pt with a copy of The Important Message from Medicare form. athletic turf worker informed pt that non-emergency EMS transport would be taking her to [facility] later this morning. Social work to follow-up as needed.
--- NOTE | 2023-04-25 12:12 | PM.DS1 ---
DS: Providers Provider Date Seen: 04/25/23 Date of admission: 04/19/23 15:36 Primary care physician: Not a Local Provider Admitting Clinician: Jaret Laughlin MD Attending Physician on discharge: Jaret Laughlin MD Date of Discharge: 04/25/23 DS: Diagnosis Discharge Diagnosis (1) Fracture of hip, left, closed: Status: Acute Problem details: - fracture occurred on 04/17/2023, acute comminuted fracture of left proximal femur with mixed intertrochanteric and femoral neck involvement - patient presented for medical assessment on 04/19/[address] Neri 04/20/2023. No apparent postoperative complications (2) Hypoxic respiratory failure: Status: Acute Problem details: Patient's hypoxic respiratory failure appears to be combination of underlying COPD, opioid use, undiagnosed sleep apnea. Initial concern about aspiration or atelectasis. Briefly treated with antibiotics: She received 3 days of IV ceftriaxone/azithromycin for possible pneumonia without other clinically obvious signs and symptoms of pneumonia other than hypoxia. No evidence for pulmonary embolism or decompensated heart failure. She has not having marked prolonged expiratory phase or wheezing on respiratory exam today and receives nebs for her COPD. In the last 2 days patient has maintained O2 sats in the mid 90s on room air during the day and in the upper 80s and low 90s at night. Consider pulmonary consultation and sleep study after rehab stay. (3) COPD (chronic obstructive pulmonary disease): Status: Acute Problem details: New diagnosis. Nebulizer treatments. Supplemental oxygen and monitor for CO2 retention. (4) Alcohol dependence: Status: Acute Problem details: She had visual hallucinations intermittently in the beginning of her hospital stay. None for the last 2 days. I favor this being hospital-acquired delirium as she has had no other evidence of alcohol withdrawal. Could be alcohol withdrawal hallucinosis.. Does not appear to be having alcohol withdrawal delirium since she has normal vitals and no autonomic instability. - since 2006 - 2 shots of vodka every night No obvious signs of alcohol withdrawal other than possible visual hallucinations (5) Tobacco dependence: Status: Acute Problem details: - 1 pack per day - nicotine patch for now (6) Weight loss: Status: Acute Problem details: - dx 12/26/2022 - 01/10/2023 weight 50.9 kg, current weight is 55 kg. BMI 19.26 in December and 23 in March 2023 (7) Unstable gait: Status: Acute Problem details: - Multifactorial: Alcohol dependence, folate deficiency, vitamin B12 deficiency, and possibly in association with history of stroke as well. Postoperatively will assess mobility. Will need assisted facility for rehab (8) Delirium: Status: Acute Problem details: Had visual hallucinations intermittently postoperative. Now resolved. No obvious alcohol withdrawal delirium (9) Discharge planning issues: Status: Acute Problem details: Patient is anxious to go home. Currently she needs assist of 2 people to transfer. Appears she will need assisted facility for rehab. DS: Summary Hospital Course Hospital Course: 77-year-old female admitted to the hospital after a fall at home sustaining a left femoral neck and left intertrochanteric fracture. She was taken to the OR by Dr. Neri where she had an ORIF. There were no operative complications. Preoperatively she did have hypoxia, primarily at night. Evaluation included a chest CT which showed no PE and no pneumonia. Clinically she was felt to have undiagnosed COPD and undiagnosed sleep apnea. Hypoxia exacerbated by opioid therapy for her hip fracture. She was treated for COPD with nebulizer treatments. Over the past 2 days and nights she has been able to maintain her O2 sats on room air in the mid 90s during the day and in the upper 80s and low 90s at night. She does not have symptomatic dyspnea. She had some visual hallucinations early in her hospital stay. These have resolved. It was uncertain whether this with some mild alcohol withdrawal hallucinosis or hospital-acquired delirium. She otherwise did not have unstable vitals, autonomic instability, tremor or other agitation to suggest alcohol withdrawal delirium. This resolved and has not been a problem in the last 2 days. She has made slow progress with physical therapy. Even prior to her fracture her left leg was not moving well and she was walking with a walker. She remains reluctant to bear full weight on her left leg. Per orthopedics she is permitted to be full weight-bearing Status at Discharge Functional status at discharge: uses cane/walker Overall status at discharge: patient is progressing back to baseline Time Spent with Patient Time attestation: Total time spent providing and/or coordinating discharge services: Time spent: Greater than 30 minutes Exam Narrative: Exam Narrative: She is alert and appears in no distress. Breathing is unlabored. She is pleasant and oriented to her circumstances. Intact pulses and sensation distally. Const: Vital Signs, click to edit/add: Vital Signs - 24 hr 04/24/23 15:00 04/24/23 15:52 04/24/23 15:54 Temperature 97.7 F Pulse Rate [Pulse Oximeter] 96 96 Respiratory Rate 20 20 20 Blood Pressure [Ri ght Arm] 138/74 Pulse Oximetry 93 93 Oxygen Delivery Me thod Room Air Room Air Oxygen Flow Rate 04/24/23 19:00 04/24/23 23:00 04/24/23 23:00 Temperature 98 F 98.1 F Pulse Rate [Pulse Oximeter] 92 97 Respiratory Rate 20 18 Blood Pressure [Ri ght Arm] 125/68 Pulse Oximetry 93 90 90 Oxygen Delivery Me thod Room Air Room Air Room Air Oxygen Flow Rate 0 04/25/23 02:55 04/25/23 06:00 04/25/23 07:00 Temperature Pulse Rate [Pulse Oximeter] 96 Respiratory Rate 16 18 16 Blood Pressure [Ri ght Arm] Pulse Oximetry Oxygen Delivery Me thod Oxygen Flow Rate 04/25/23 07:58 04/25/23 07:59 Temperature 97.7 F Pulse Rate [Pulse Oximeter] 96 Respiratory Rate 16 16 Blood Pressure [Ri ght Arm] 121/69 Pulse Oximetry 90 90 Oxygen Delivery Me thod Room Air Room Air Oxygen Flow Rate Documenting provider has reviewed patient's vital signs: yes Discharge Plan Discharge Disposition: [facility] Date of Admission: 04/19/23 15:36 Attending Provider on Discharge: Jaret Laughlin Primary Care Provider: Provider,Not a Local Condition: Stable Discharge Medications: New nicotine 14 mg/24 hr Patch 24 Hour 1 patch transdermal Q24H Qty: 28 0RF ipratropium-albuterol 0.5 mg-3 mg(2.5 mg base)/3 mL Solution For Nebulization 3 ml inhalation Q6H Qty: 120 0RF multivitamin with folic acid [Thera] 400 mcg Tablet 1 tab PO DAILY Qty: 30 0RF sennosides [Senna Lax] 8.6 mg Tablet 17.2 mg PO BID PRN (Reason: constipation) Qty: 100 0RF oxycodone 5 mg Tablet 5 mg PO Q4H PRNQty: 30 0RF Xarelto 10 mg Tablet 10 mg PO DAILY Qty: 30 0RF acetaminophen 325 mg Tablet 650 mg PO Q6H PRNQty: 100 0RF melatonin 3 mg Tablet 3 mg PO HS PRNQty: 30 0RF Continued atorvastatin 20 mg tablet 20 mg PO QPM cyanocobalamin (vitamin B-12) 1,000 mcg tablet 1,000 mcg PO DAILY mirtazapine 7.5 mg tablet 7.5 mg PO QPM Discharge Orders: Discharge Order (Routine); Ordered 04/25/23 Ordered By: Jaret Laughlin Activity Level: Activity as Tolerated, Weight Bearing as Tolerated and Use Walker Discharge Diet: Regular Follow Up Appointments: Provider,Not a Local [Primary Care Provider] - Forms: [facility] Info Instructions Admit to: SNF Discharge Potential: Good Length of Stay: 30-90 days Can use facility standing orders?: Yes Code Status: Full Code TEDs: Bilateral Knee Rehab Potential: Good Therapy: Physical Therapy and Occupational Therapy Therapy Orders: Evaluate and Treat, Gait Training and ADL Oxygen: Yes Oxygen Delivery Method: Nasal Cannula Oxygen Flow Rate: 1 liter/min/NC as needed to keep O2 sats at 88% Urinary Catheter: No Lab Orders: CBC and basic metabolic panel in one week
== END 2023-04-25 10:38 | DRG 480 ==
LOC: ED 15:26 → MEDSURG 15:30
PROVIDERS: Internal Medicine; Orthopaedic Surgery; Admitting Provider Family Medicine; Emergency Provider Emergency Medicine; Visit Provider Family Medicine
PROC: 0QS706Z Reposition Left Upper Femur with Intramedullary Internal Fixation Device, Open Approach (ICD-10-PCS; CPT 27245; principal; 2023-04-20 10:00)
DX: S72.142A Displaced intertrochanteric fracture of left femur, initial encounter for closed fracture (principal); J96.01 Acute respiratory failure with hypoxia; Z68.1 Body mass index [BMI] 19.9 or less, adult; J98.11 Atelectasis; D62 Acute posthemorrhagic anemia; F05 Delirium due to known physiological condition; J44.9 Chronic obstructive pulmonary disease, unspecified; G47.30 Sleep apnea, unspecified; G89.18 Other acute postprocedural pain; S72.092A Other fracture of head and neck of left femur, initial encounter for closed fracture; R44.1 Visual hallucinations; W18.30XA Fall on same level, unspecified, initial encounter; Y92.009 Unspecified place in unspecified non-institutional (private) residence as the place of occurrence of the external cause; R26.81 Unsteadiness on feet; I10 Essential (primary) hypertension; F17.210 Nicotine dependence, cigarettes, uncomplicated; F10.20 Alcohol dependence, uncomplicated; R63.4 Abnormal weight loss; E53.8 Deficiency of other specified B group vitamins; E78.5 Hyperlipidemia, unspecified; F32.9 Major depressive disorder, single episode, unspecified; Z86.73 Personal history of transient ischemic attack (TIA), and cerebral infarction without residual deficits
CPT/HCPCS: 01210; 36415; 36600; 64450; 71045; 71275; 73502; 73552; 73700; 76000; 76942; 80048; 81001; 82803; 83880; 84145; 84484; 85025; 87086; 87186; 87631; 94640; 94660; 94664; 94761; 97110; 97116; 97161; 97165; 97530; 97535; 99100; 99283; 99284; 99285; A9153; A9270; C1713; J0456; J0665; J0690; J0696; J1100; J1170; J2250; J2371; J2405; J2704; J2795; J2920; J3010; J3490; J7050; J7120; Q9967; S4990

== ENCOUNTER 2023-04-25 10:25 | Outpatient (CLI) | payer MEDICARE, BC, SELFPAY | END 2023-04-25 10:26 | disposition home or self-care (01) | LOC: AMB 04-26 12:03 | PROVIDERS: Visit Provider Emergency Medicine Emergency Medical Services | DX: R53.1 Weakness (principal); Z47.89 Encounter for other orthopedic aftercare | CPT/HCPCS: A0425; A0428 ==

== ENCOUNTER 2024-09-14 12:27 | Emergency (ER) | payer MEDICARE, BC, SELFPAY ==
--- OUTSIDE RECORDS SUMMARY | 2024-09-14 12:29 | XMS_ITS | Clinical Summary ---
Author Organization [facility] Address [address] [place] [id number] Care Team Providers Care Director Of Marketing And Promotions Name Role Phone Amena Tate Primary Care Provider [phone] Allergies Active Allergy Reactions Criticality Noted Date Comments Lisinopril Angioedema 03/28/2014 Medications cyanocobalamin (Vitamin B-12) 1,000 mcg tabletIndication s:B12 deficiency Take 1 Tablet (1,000 mcg) by mouth once daily. 90 Tablet 3 3 Active polyethylene glycoL (MIRALAX) 17 gram/scoop powderIndication s:Constipation, unspecified constipation type Take 1 scoop (17 g) by mouth or nasogastric tube once daily if needed for Constipation. 510 g 12/28/2022 12:39 PM CDT 3 Active durable medical equipment (DME)Indications :Moderate protein-calorie malnutrition (HC),Cerebral infarction, unspecified mechanism (HC),Generalized weakness Power Scooter 1 Each 3 Active mirtazapine (REMERON) 7.5 mg tabletIndication s:Failure to thrive in adult Take 1 Tablet (7.5 mg) by mouth at bedtime. 90 Tablet 3 Active folic acid 1 mg tabletIndication s:Folate deficiency Take 1 Tablet (1 mg) by mouth once daily. 90 Tablet 3 3 Active atorvastatin (LIPITOR) 20 mg tabletIndication s:Cerebral infarction, unspecified mechanism (HC) Take 1 Tablet (20 mg) by mouth once daily with evening meal. 90 Tablet 3 Active aspirin chewable 81 mg chewable tabletIndication s:Cerebral infarction, unspecified mechanism (HC) Chew 1 Tablet (81 mg) by mouth once daily with a meal. 90 Tablet 3 Active oxyCODONE (ROXICODONE) 5 mg immediate release tablet Take 5 mg by mouth every 4 hours if needed for Pain. 4 Active tiotropium-oloda teroL (Stiolto Respimat) 2.5-2.5 mcg/actuation inhalerIndicatio ns:Mixed simple and mucopurulent chronic bronchitis (HC) Inhale 2 Puffs by mouth once daily. 4 g 1 4 Active albuterol HFA (PRO-AIR; VENTOLIN; PROVENTIL) 90 mcg/actuation inhalerIndicatio ns:Mixed simple and mucopurulent chronic bronchitis (HC) Inhale 1-2 Puffs by mouth every 4 hours if needed for Shortness Of Breath or Wheezing. 3 Each 3 4 Active Active Problems Problem Noted Date Diagnosed Date S/p left hip fracture 07/18/2023 Tobacco use disorder 07/18/2023 Hypokalemia 12/26/2022 Malnutrition 12/26/2022 Weight loss 12/26/2022 Closed fracture of first met acarpal bone of left hand with routine healing 05/28/2017 TIA (transient ischemic attack) 09/17/2012 Other and unspecified hyperlipidemia 09/17/2012 Cyst and pseudocyst of pancreas 02/05/2008 Other and unspecified alcoho l dependence, unspecified drinking behavior 11/04/2006 Unspecified essential hypertension 10/24/2006 Depressive disorder, not elsewhere classified Anemia of chronic disease CVA (cerebral infarction) Immunizations Immunization Administration Dates Next Due COVID-19 vaccine ([email or web address] 30mcg/0.3mL) PF, MDV 07/24/2020,07/03/2020 Influenza, High-dose Inactivated 01/26/2014 Influenza, IIV3 (Age >=3 years) 02/23/2013,01/23,02/18/2007 Pneumococcal Conj 20-valent (Prevnar 20) 024 Pneumococcal Poly,23-Valent (Pneumovax) 01/19/20 11,11/16/2010,10/27/2010 Td (Age >=7 Years) 12/11/2005 Tdap 01/18/2011 Zoster (Zostavax-ZVL, live) 01/18/2011 Family History Medical History Relation Name Comments Cancer Father bladder Heart Disease Father Hypertension Father Heart Disease Mother Hypertension Mother Osteoporosis Mother Stroke Mother Relation Name Status Comments Brother Alive Daughter Alive Father (Age 85) Maternal Grandfather Maternal Grandmother Mother Alive Paternal Grandfather Paternal Grandmother Sister 1 Alive Sister 2 Alive Son 1 Alive Son 2 Alive Son 3 Alive Social History Tobacco Use Types Packs/Day Years Used Date Smoking Tobacco: Every Day Cigarettes 0.8 40 Smokeless Tobacco: Never Tobacco Cessation:Ready to Q uit: No; Counseling Given: No Alcohol Use Standard Drinks/Week Comments Yes 0 (1 standard drink = 0.6 oz pur e alcohol) occasionally Social Connections Answer Date Recorded Frequency of Communication with Friends and Fami ly Not on file 01/16/2024 Financial Resource Strain Answer Date R ecorded Difficulty of Paying Living Expenses 3 01/10/2023 Difficulty of Paying Living Expenses Not on file 01/10/2023 Food Insecurity Answer Date Recorded Worried About Running Out of Food in the Last Ye ar 1 01/10/2023 Transportation Needs Answer Date Record ed Lack of Transportation (Medical) 1 01/10/2023 Housing Stability Answer Date Recorded Unable to Pay for Housing in the Last Year 1 01/10/2023 Comments No Sex and Gender Information Value Date Recorded Sex Assigned at Not on file Legal Sex Female 6:59 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 Gender Identity Not on file Sexual Orientation Not on file Occupation Industry Job Start Date Job End Date Not on file Not on file Not on file Not on file Obstetrics History Para Term AB IAB SAB Ectopic Multiple Livin g Live Births 4 4 4 Date Outcome GA Total Labor Labor/2nd/3rd Weight Sex Type Anes PTL Robyn A1 A5 Name Clin Para Para Para Para Last Filed Vital Signs Vital Sign Reading Time Taken Comments Blood Pressure 127/81 10/21/2023 12:55 PM CDT Pulse 108 10/21/2023 12:55 PM CDT Temperature 36.8 C (98.2 F) 12/28/2022 9:46 AM CDT Respiratory Rate 18 02/08/2023 9:33 PM CDT Oxygen Saturation 98% 10/21/2023 12:55 PM CDT Inhaled Oxygen Concentration - - Weight 52.3 kg (115 lb 6.4 oz) 10/21/2023 12:55 PM CDT Height 162.6 cm (5' 4) 02/08/2023 9:33 PM CDT Body Mass Index 19.81 02/08/2023 9:33 PM CDT Plan of Treatment Health Maintenance Due Date Last Done Comments Depression screening for age 12+ 1959 Hepatitis C screening for ag e 18-79 11/11/1965 Zoster (shingles) series for age 50+ (2 of 3) 03/15/2011 01/18/2011 DEXA/DXA scan for age 65+ 11/11/2012 09/02/2007 Medicare Wellness for age 65+ 11/11/2012 Tetanus booster 01/18/2021 01/18/2011, 12/11/2005 RSV vaccine for adults or (1 - 1-dose 75+ series) 11/11/2022 BMI (ht and wt on same day) for age 18+ 11/03/2023 11/02/[address] (for lung CA) ag e 50-80 12/27/2023 12/26/2022 COVID-19 vaccine series ( season) 2023 07/24/2020, 07/03/2020 Influenza Vaccine (Season Ended) 2024 01/26/2014, 02/23/2013, 01/24/2012, Additional history exists Tdap Completed 01/18/2011 Pneumococcal series for age 50+ Completed 10/21/2023, 01/18/2011, 11/16/2010, Additional history exists Procedures Procedure Name Priority Date/Time Associated Diagnosis Comments CT CHEST ABDOMEN PELVIS W STAT 12/26/2022 5:03 PM CDT XR DXA BONE DENSITY 2 SITES AXIAL Routine 09/02/2007 Symptomatic Menopausal State from Last 3 Months or Most Recently Relevant to Health Maintenance Results * CT CHEST ABDOMEN PELVIS W (12/26/2022 5:03 PM CDT) Anatomical Region Laterality Modality Abdomen, Pelvis, AORTA, LIVER, SPLEEN, CHEST Computed Tomography 12/26/2022 6:17 PM CDT Impressions 12/26/2022 6:17 PM CDT No acute findings within the chest, abdomen, and pelvis. No findings of malignancy or metastatic disease. Emphysema. Hepatic steatosis. Diverticulosis without evidence of diverticulitis. Please note that all CT scans at this facility use dose modulation, iterative reconstruction, and/or weight-based dosing when appropriate to reduce radiation dose to as low as reasonably achievable. Dictated by Federico Gutiérrez MD @ 12/26/2022 6:17:25 PM (Electronically Signed) Narrative 12/26/2022 6:17 PM CDT For Patients: As a result of the Century Cures Act, medical imaging exams and procedure reports are released immediately into your electronic medical record. You may view this report before your referring provider. If you have questions, please contact your health care provider. INDICATION: weight loss, failure to thrive, smoking hx, rule out malignancy. TECHNIQUE: CT chest, abdomen and pelvis acquired with 100 cc of Omnipaque 350 IV contrast. Permanently recorded images are archived. COMPARISON: CT abdomen and pelvis 03/03/2008 FINDINGS: CHEST: Cardiovascular structures: Heart size is normal. Thoracic aorta and main pulmonary artery are normal in caliber. Normal caliber abdominal aorta with mild atherosclerotic calcification. No pericardial effusion. Mediastinum and kasia: No mass or adenopathy. Lungs and pleura: Emphysema. No consolidation. Focal scarring in the inferior lingula. No suspicious nodules, pneumothorax, or effusions. Chest wall and axilla: No mass or adenopathy. Bones: No suspicious bone lesions. Unremarkable for age. ABDOMEN AND PELVIS: Liver: Diffuse fatty infiltration. Normal contour. No suspicious mass. Gallbladder and bile ducts: Unremarkable. 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 Spleen: Unremarkable. Adrenal glands: Unremarkable. Kidneys, Ureters, and Bladder: Mildly atrophic kidneys. 4 mm nonobstructing stone in the left kidney. No suspicious renal mass. Unremarkable ureters and urinary bladder. GI tract: Diverticulosis without pericolonic inflammation. No obstruction. Normal appendix. Vascular structures: Severe atherosclerotic calcification of the abdominal aorta and iliac arteries. No aneurysm. Patent mesenteric arteries. Lymph nodes: Unremarkable. Miscellaneous: Unremarkable. No free air or significant free fluid. Pelvic Organs: Unremarkable. Bones: No suspicious bone lesions. Unremarkable for age. Procedure Note Federico Gutiérrez MD - 12/26/2022 For Patients: As a result of the Cures Act, medical imagingexams and procedure reports are released immediately into your electronicmedical record. You may view this report before your referring provider.If you have questions, please contact your health care provider. INDICATION: weight loss, failure to thrive, smoking hx, rule out malignancy. TECHNIQUE: CT chest, abdomen and pelvis acquired with 100 cc of Omnipaque 350 IVcontrast. Permanently recorded images are archived. COMPARISON: CT abdomen and pelvis 03/03/2008 FINDINGS: CHEST: Cardiovascular structures: Heart size is normal. Thoracic aorta and mainpulmonary artery are normal in caliber. Normal caliber abdominal aortawith mild atherosclerotic calcification. No pericardial effusion. Mediastinum and kasia: No mass or adenopathy. Lungs and pleura: Emphysema. No consolidation. Focal scarring in theinferior lingula. No suspicious nodules, pneumothorax, or effusions. Chest wall and axilla: No mass or adenopathy. Bones: No suspicious bone lesions. Unremarkable for age. ABDOMEN AND PELVIS: Liver: Diffuse fatty infiltration. Normal contour. No suspicious mass. Gallbladder and bile ducts: Unremarkable. Pancreas: No significant interval change in the heterogeneous 2.3 x 1.5 cmmass at the junction of the body and tail of the pancreas with dilatationof the main pancreatic duct, previously characterized as an intraductalpapillary mucinous neoplasm. Spleen: Unremarkable. Adrenal glands: Unremarkable. Kidneys, Ureters, and Bladder: Mildly atrophic kidneys. 4 mmnonobstructing stone in the left kidney. No suspicious renal mass.Unremarkable ureters and urinary bladder. GI tract: Diverticulosis without pericolonic inflammation. No obstruction.Normal appendix. Vascular structures: Severe atherosclerotic calcification of the abdominalaorta and iliac arteries. No aneurysm. Patent mesenteric arteries. Lymph nodes: Unremarkable. Miscellaneous: Unremarkable. No free air or significant free fluid. Pelvic Organs: Unremarkable. Bones: No suspicious bone lesions. Unremarkable for age. IMPRESSION: No acute findings within the chest, abdomen, and pelvis. No findings ofmalignancy or metastatic disease. Emphysema. Hepatic steatosis. Diverticulosis without evidence of diverticulitis. Please note that all CT scans at this facility use dose modulation,iterative reconstruction, and/or weight-based dosing when appropriate toreduce radiation dose to as low as reasonably achievable. 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
[2024-09-14 12:44] VITALS: BP 157/86; PULSE 92; RESP 18; TEMP 36.4; O2SAT 91; BMI 22.1
--- NOTE | 2024-09-14 12:49 | ED.UPPEXIN ---
HPI - Extremity Injury (Upper) General Time Seen by Provider: 12:51 Date Seen: 09/14/24 Chief Complaint: Extremity Pain/Injury, Upper Stated Complaint: fell last night, hurt shoulder Time Seen by Provider: 09/14/24 12:39 Source: patient, family, RN notes reviewed and old records reviewed Mode of arrival: ambulatory Limitations: no limitations History of Present Illness HPI narrative: This 78-year-old female is coming in accompanied by her with right shoulder pain. She was ambulating with her walker and reports her legs just gave out. She states the of cement floors, she fell to the ground hitting her right shoulder. She denies hitting her head, no head, neck or back pain. There was no loss of consciousness. She is not on any blood thinners. She also reports a week ago she fell in hit her head. She denies any prodromal symptoms such is cardiopulmonary issues causing her fall. Both she and her just indoors increasing weakness in her legs. She has had a history of a stroke years ago. She did have her hip repaired for fracture here in 2022 after a fall. Her notes that she does fall. She has had a history of tobacco dependence, alcohol dependence. She was noted to have an unstable gait in 2022. She denies any chest pain, no shortness of breath, no difficulty breathing, no abdominal pain. She has no back pain or neck pain, no headache. She does not have any numbness tingling going into the arm. She hurts from her shoulder down to about mid upper arm. Denies pain elsewhere. Related Data Home Medications ?Medication ?Instructions ?Recorded ?Confirmed atorvastatin 20 mg tablet 20 mg PO QPM 04/19/23 09/14/24 cyanocobalamin (vitamin B-12) 1,000 mcg PO DAILY 04/19/23 09/14/24 1,000 mcg tablet mirtazapine 7.5 mg tablet 7.5 mg PO QPM 04/19/23 09/14/24 Previous Rx's ?Medication ?Instructions ?Recorded acetaminophen 325 mg tablet 650 mg (2 x 325 mg) PO Q6H PRN 04/25/23 #100 tabs ipratropium 0.5 mg-albuterol 3 mg 3 ml inhalation Q6H #120 mL 04/25/23 (2.5 mg base)/3 mL nebulization soln melatonin 3 mg tablet 3 mg PO HS PRN #30 tabs 04/25/23 multivitamin with folic acid 400 1 tab PO DAILY #30 tabs 04/25/23 mcg tablet (Thera) nicotine 14 mg/24 hr daily 1 patch transdermal Q24H #28 ea 04/25/23 transdermal patch oxycodone 5 mg tablet 5 mg PO Q4H PRN #30 tabs 04/25/23 rivaroxaban 10 mg tablet (Xarelto) 10 mg PO DAILY #30 tabs 04/25/23 sennosides 8.6 mg tablet (Senna 17.2 mg (2 x 8.6 mg) PO BID PRN 04/25/23 Lax) constipation #100 tabs Allergies Allergy/AdvReac Type Severity Reaction Status Date / Time No Known Drug Allergies Allergy Verified 09/14/24 12:40 Review of Systems Status of ROS: Reports: 6 or more systems reviewed and unremarkable except as noted in History and below [facility] Medical History Discharge planning issues ?Z02.9 - Encounter for administrative examinations, unspecified (ICD-10) Delirium ?R41.0 - Disorientation, unspecified (ICD-10) Atelectasis ?J98.11 - Atelectasis (ICD-10) Acute respiratory failure ?J96.00 - Acute respiratory failure, unspecified whether with hypoxia or hypercapnia (ICD-10) Unstable gait ?R26.81 - Unsteadiness on feet (ICD-10) Weight loss ?R63.4 - Abnormal weight loss (ICD-10) Malnutrition ?E46 - Unspecified protein-calorie malnutrition (ICD-10) Closed fracture of first metacarpal bone of left hand ?S62.202A - Unspecified fracture of first metacarpal bone, left hand, initial encounter for closed fracture (ICD-10) Transient ischemic attack ?G45.9 - Transient cerebral ischemic attack, unspecified (ICD-10) Cyst and pseudocyst of pancreas ?K86.2 - Cyst of pancreas (ICD-10) ?K86.3 - Pseudocyst of pancreas (ICD-10) Hyperlipidemia ?E78.5 - Hyperlipidemia, unspecified (ICD-10) Tobacco dependence ?F17.200 - Nicotine dependence, unspecified, uncomplicated (ICD-10) Alcohol dependence ?F10.20 - Alcohol dependence, uncomplicated (ICD-10) Essential hypertension ?I10 - Essential (primary) hypertension (ICD-10) Major depressive disorder ?F32.9 - Major depressive disorder, single episode, unspecified (ICD-10) Folic acid deficiency ?E53.8 - Deficiency of other specified B group vitamins (ICD-10) Vitamin B12 deficiency ?E53.8 - Deficiency of other specified B group vitamins (ICD-10) Vitamin B12 deficiency ?E53.8 - Deficiency of other specified B group vitamins (ICD-10) Constipation ?K59.00 - Constipation, unspecified (ICD-10) Constipation ?K59.00 - Constipation, unspecified (ICD-10) Failure to thrive Hypomagnesemia ?E83.42 - Hypomagnesemia (ICD-10) Cerebral infarction ?I63.9 - Cerebral infarction, unspecified (ICD-10) Surgical History Status post breast lumpectomy ?Z98.890 - Other specified postprocedural states (ICD-10) History of colonoscopy ?Z98.890 - Other specified postprocedural states (ICD-10) H/O tubal ligation ?Z98.51 - Tubal ligation status (ICD-10) Family History Father Cancer Heart disease High blood pressure Mother Heart disease High blood pressure Osteoporosis Stroke Social History What is your current living situation?: I presently have a place to live Problems where you live: no known problems Problems where you live details: na In the past 12 months, utilities in danger of being shut off: no In past 12 months, lack of transportation kept you from medical appts, meetings, work, or getting things needed for daily living: no In the past 12 mos, have been you worried that your food would run out before you had money to buy more?: never true In the past 12 mos, the food you bought just didn't last and you didn't have money to buy more?: never true Smoking Status: Current every day smoker What tobacco products do you use: cigarettes Do you use any of these nicotine containing products: None Second hand tobacco smoke exposure: No How often do you have a drink containing alcohol: 4 or more times a week How many standard drinks containing alcohol do you have on a typical day: 1 or 2 AUDIT-C Alcohol total score: 4 Non-prescribed substance use: denies use Caffeine: No How often does anyone, including family, friends and others, physically hurt you: never How often does anyone, including family, friends and others, insult or talk down to you: never How often does anyone, including family, friends and others, threaten you with harm: never How often does anyone, including family, friends and others, scream or curse at you: never service: No Exam Const: Vital Signs, click to edit/add: Vital Signs - 24 hr 09/14/24 12:44 09/14/24 14:55 Temperature 97.6 F Pulse Rate 81 Pulse Rate [Pulse Oximeter] 92 Respiratory Rate 18 16 Blood Pressure 165/85 H Blood Pressure [Le ft Upper Arm] 157/86 H Pulse Oximetry 91 94 Oxygen Delivery Me thod Room Air Room Air This 78-year-old female is alert, interactive, no apparent distress. Face is atraumatic but do note some mild resting ptosis of her left upper eyelid which is subtle. Extraocular muscles intact, conjugate gaze. Speech is normal, no traumatic change of oropharynx. No midline tenderness of her neck, neck is supple good range of motion. Lungs are clear come good air entry, no wheezing or crackles, no tachypnea. CV regular rate and rhythm no significant murmur, normal S1-S2. She has bruising over the anterolateral clavicle into the shoulder. It does feel like her glenohumeral joint palpates intact. She has pain with range of motion of her shoulder. She has no pain about her elbow, forearm, wrist, hand or digits on the right side. Left extremity fully mobile without any pain. Abdomen is soft, nontender, nondistended, no organomegaly. She has no pain in her lower extremities, no edema noted. She overall appears pale, some mild telangiectasias in her cheeks noted. Documenting provider has reviewed patient's vital signs: yes Course Course ED Course: With her history of frequent falls, consideration of her past medical history, do think we should do head CT and cervical spine imaging. She does agree. Will also look at a chest x-ray and right shoulder given where I see the bruising. Need to rule out fracture of clavicle, upper chest wall fractures as well as her shoulder or upper humerus. If there are any concerning changes on the chest x-ray, may need to do CT imaging. Will get labs in this patient as well to see if there might be anything medical contributing to her falling. Reevaluation(s) Time of Reevaluation #1: 14:47 Reevaluation #1: Have reviewed with patient and her that she has a distal clavicle fracture, reviewed it is right under the area of bruising. Will fit her with a sling. We discussed that at this point this is non operative. He will have to assist her around the house to help so that she does not fall. They do have a cane at home and she will likely need to go to the cane until she can use her right arm comfortably. Consultations Consultation #1: Did speak with Orthopedics Dr. Rosado. He reviewed images, this is very likely going to be non operative. He would recommend sling. Did discuss that she usually ambulates with a walker and has a poor gait. We can see if her can potentially a sister in the house, use a cane in the unaffected extremity for help with gait stability. It will be difficult to use a walker until she has less pain in this right arm. Time: 14:38 Vital Signs Vital signs: Initial Vital Signs Temperature 97.6 F 09/14/24 12:44 Temperature Source Temporal Artery Scan 09/14/24 12:44 Pulse Rate 92 09/14/24 12:44 Pulse Rhythm Regular 09/14/24 12:44 Respiratory Rate 18 09/14/24 12:44 Blood Pressure 157/86 H 09/14/24 12:44 Blood Pressure Mean 109 H 09/14/24 12:44 Blood Pressure Position Sitting 09/14/24 12:44 Pulse Oximetry 91 09/14/24 12:44 Oxygen Delivery Method Room Air 09/14/24 12:44 Vital Signs Temperature 97.6 F 09/14/24 12:44 Pulse Rate 92 09/14/24 12:44 Respiratory Rate 18 09/14/24 12:44 Blood Pressure 157/86 H 09/14/24 12:44 Pulse Oximetry 91 09/14/24 12:44 Oxygen Delivery Method Room Air 09/14/24 12:44 Temperature 97.6 F 09/14/24 12:44 Pulse Rate 81 09/14/24 14:55 Respiratory Rate 16 09/14/24 14:55 Blood Pressure 165/85 H 09/14/24 14:55 Pulse Oximetry 94 09/14/24 14:55 Oxygen Delivery Method Room Air 09/14/24 14:55 MDM - Extremity Injury (Upper) Lab Data Attestation: I reviewed the patient's lab results. Labs: Lab Results 09/14/24 Range/Units 13:40 WBC 7.54 (4.50-11.00) K/uL RBC 4.52 (4.00-5.20) m/uL Hgb 14.8 (12.0-16.0) gm/dL Hct 45.5 (33.0-51.0) % MCV 101 H (80-100) fL MCH 33 (26-34) pg MCHC 33 (32-36) gm/dL RDW Coeff of Penny 13.9 (11.5-15.5) % Plt Count 148 (140-440) K/uL Neut % (Auto) 84.8 H (42.0-72.0) % Lymph % (Auto) 9.9 L (20-44) % [place] % (Auto) 5.0 (0.0-11.0) % Eos % (Auto) 0.1 (0.0-7.0) % Baso % (Auto) 0.1 (0.0-3.0) % Neut # (Auto) 6.40 (1.7-7.0) K/uL Lymph # (Auto) 0.70 L (0.90-2.90) K/uL [place] # (Auto) 0.40 (0.00-0.90) K/UL Eos # (Auto) 0.01 (0.00-0.50) K/uL Baso # (Auto) 0.01 (0.00-0.30) K/uL Abs Immat Gran (auto) 0.01 (0.00-0.30) K/uL Imm/Tot Granulo (auto) 0.1 % INR 0.98 (0.91-1.10) APTT 25 (23-33) Seconds Sodium 140 (135-149) mmol/L Potassium 3.6 (3.6-5.1) mmol/L Chloride 100 (96-114) mmol/L Carbon Dioxide 32 (20-32) mmol/L Anion Gap 8 (7-15) mEq/L BUN 17 (7-30) mg/dL Creatinine 0.7 (0.5-1.5) mg/dL Estimated Creat Clear 39.59 Estimated GFR 90 ml/min Glucose 96 (60-115) mg/dL Calcium 9.3 (8.4-10.6) mg/dL Total Bilirubin 1.7 H (0.1-1.5) mg/dL Direct Bilirubin 0.3 (0.0-0.5) mg/dL AST 29 (12-35) U/L ALT 15 (4-35) U/L Alkaline Phosphatase 79 (40-150) U/L Ammonia < 8.7 L (13.1-30.0) umol/L Total Creatine Kinase 43 (41-117) U/L Total Protein 7.2 (6.0-8.3) g/dL Albumin 4.2 (3.3-5.0) g/dL Imaging Data CT scan - head: Attestation: I have reviewed the pertinent imaging results. Radiologist's impression: Patient: JASS WILLIS Facility:?[facility] Patient ID:?[id number] Site Patient ID:?[id number]. Site :?[id number] Study:?CT-Head WITHOUT-09/14/2024 1:22:42 PM Ordering Physician:Job Richey Final Report: INDICATION: FALL. 09/13/24 TECHNIQUE: CT of the head was performed without IV contrast. COMPARISON: 12/26/2022. FINDINGS: Parenchyma: No acute hemorrhage, infarction, or mass. Moderate confluent periventricular white matter hypoattenuation is nonspecific and is favored to represent chronic small vessel ischemic disease. Ventricles and extra-axial spaces: Moderate involutional changes. Visualized paranasal sinuses: Clear. Mastoid air cells: Chronic appearing deformity of the left mastoid air cells is again seen with partial opacification, which may relate to sequela of chronic mastoiditis. Bones: Redemonstration of postsurgical changes of the medial and inferior left orbit. Additional comment: Bilateral lens surgery. IMPRESSION: 1. No acute intracranial abnormality. 2. Chronic appearing deformity of the left mastoid air cells is again seen with partial opacification, which may relate to sequela of chronic mastoiditis. Please note that all CT scans at this facility use dose modulation, iterative reconstruction, and/or weight-based dosing when appropriate to reduce radiation dose to as low as reasonably achievable. Dictated by Juan Quinonez MD @ 09/14/2024 1:44:00 PM (Electronic Signature) CT cervical spine: Attestation: I have reviewed the pertinent imaging results. Radiologist's impression: Patient: JASS WILLIS Facility:?[facility] Patient ID:?[id number] Site Patient ID:?[id number]. Site :?[id number] Study:?CT-Spine Cervical WITHOUT-09/14/2024 1:22:29 PM Ordering Physician:Job Richey Final Report: INDICATION: FALL. 09/13/24. TECHNIQUE: CT of the cervical spine was performed without intravenous contrast. COMPARISON: None. FINDINGS: Alignment: Straightening of the normal cervical lordosis. Vertebrae: Vertebral bodies and posterior elements are intact without acute fracture. [id number] degenerative changes. Extra-vertebral soft tissues: Normal. Visualized brain: Normal. Additional comment: Mild paraseptal emphysema. IMPRESSION: No acute displaced fracture or malalignment of the cervical spine. Please note that all CT scans at this facility use dose modulation, iterative reconstruction, and/or weight-based dosing when appropriate to reduce radiation dose to as low as reasonably achievable. Dictated by Juan Quinonez MD @ 09/14/2024 1:36:36 PM (Electronic Signature) Chest x-ray: Attestation: I have reviewed the pertinent imaging results. My impression: I question abnormality of the distal clavicle, will see this better on shoulder imaging. Await Radiology over-read. Radiologist's impression: Patient: JASS WILLIS Facility:?[facility] Patient ID:?[id number] Site Patient ID:?[id number]. Site :?1945 Study:?XRay-Chest 2 VIEWS-09/14/2024 1:36:55 PM Ordering Physician:?Carina Richey Final Report: Indication: Right anterior chest pain, fall Comparison: Single-view chest April 22, 2023 Technique: PA and lateral views of the chest Findings: There is moderate emphysematous changes with hyperinflation and chronic interstitial change. There is basilar atelectasis and parenchymal scar. There is no pneumothorax or pleural effusion. The cardiomediastinal silhouette is within normal limits. The bony thorax is grossly intact. Impression: Moderate emphysematous changes of the bilateral kamila thoraces without evidence of acute cardiopulmonary abnormality. Dictated by Cameron Higuera MD @ 09/14/2024 1:46:24 PM (Electronic Signature) XR right shoulder: Attestation: I have reviewed the pertinent imaging results. My impression: Distal clavicle fracture appreciated a my preliminary review, wait radiology over read. Radiologist's impression: Patient: JASS WILLIS Facility:?[facility] Patient ID:?[id number] Site Patient ID:?[id number]. Site :?1945 Study:?XRay-Shoulder Right SHOULDER 3 VIEWS-09/14/2024 1:35:39 PM Ordering Physician:?Carina Richey Final Report: Indication: Injury Technique: A total of three views of the right shoulder were acquired. Comparison: None Findings: Bones: There is a fracture of the distal right clavicle. This is located about 2 centimeters proximal to the acromioclavicular joint. Joint spaces: No dislocation. The glenohumeral and acromioclavicular joints appear to be intact. Soft tissues: Abnormal calcifications at the greater and lesser tuberosity probably chronic calcific tendinitis of the rotator cuff Impression: 1. Distal clavicular fracture located about 2 centimeters medial to the acromioclavicular joint. Not significantly displaced. No additional fractures 2. The glenohumeral and acromioclavicular joints appear intact. 3. Abnormal soft tissue calcifications near the greater and lesser trochanters probably calcific tendinitis of the rotator cuff. 4. Axillary calcifications are vascular calcification Dictated by Jorge Locke MD @ 09/14/2024 1:46:47 PM (Electronic Signature) Discharge Plan Discharge Clinical Impression: Closed fracture of distal clavicle Qualifiers: Encounter type: initial encounter Fracture alignment: nondisplaced Laterality: right Qualified Code(s): S42.034A - Nondisplaced fracture of lateral end of right clavicle, initial encounter for closed fracture Fall Qualifiers: Encounter type: initial encounter Qualified Code(s): W19.XXXA - Unspecified fall, initial encounter Patient Disposition: Home, Self-Care Condition: Stable Instructions: Clavicle Fracture (ED), Fall Prevention for Older Adults (ED) Additional Instructions: May need to use a cane in your left arm until your right arm is feeling better to use your walker. Use the sling on the right arm for comfort. Apply ice to that anterior upper shoulder area to help decrease pain and swelling. Can use Tylenol 1000 mg 3 times a day as needed for pain management. Contact the orthopedic clinic to schedule a follow-up, they will tell you the appropriate timeframe for follow up. The phone number is [phone]. Activity Level: Activity as Tolerated Prescriptions: No Action atorvastatin 20 mg tablet 20 mg PO QPM cyanocobalamin (vitamin B-12) 1,000 mcg tablet 1,000 mcg PO DAILY mirtazapine 7.5 mg tablet 7.5 mg PO QPM nicotine 14 mg/24 hr Patch 24 Hour 1 patch transdermal Q24H Qty: 28 0RF ipratropium-albuterol 0.5 mg-3 mg(2.5 mg base)/3 mL Solution For Nebulization 3 ml inhalation Q6H Qty: 120 0RF multivitamin with folic acid [Thera] 400 mcg Tablet 1 tab PO DAILY Qty: 30 0RF sennosides [Senna Lax] 8.6 mg Tablet 17.2 mg PO BID PRN (Reason: constipation) Qty: 100 0RF oxycodone 5 mg Tablet 5 mg PO Q4H PRNQty: 30 0RF Xarelto 10 mg Tablet 10 mg PO DAILY Qty: 30 0RF acetaminophen 325 mg Tablet 650 mg PO Q6H PRNQty: 100 0RF melatonin 3 mg Tablet 3 mg PO HS PRNQty: 30 0RF Follow Up/Referrals: Provider,Not a Local [Primary Care Provider] - Stand Alone Forms: [employer] Info Instructions
--- NOTE | 2024-09-14 12:56 | CRLHL7_ITS ---
For Patients: As a result of the Century Cures Act, medical imaging exams and procedure reports are released immediately into your electronic medical record. You may view this report before your referring provider. If you have questions, please contact your health care provider. Indication: Injury Technique: A total of three views of the right shoulder were acquired. Comparison: None Findings: Bones: There is a fracture of the distal right clavicle. This is located about 2 centimeters proximal to the acromioclavicular joint. Joint spaces: No dislocation. The glenohumeral and acromioclavicular joints appear to be intact. Soft tissues: Abnormal calcifications at the greater and lesser tuberosity probably chronic calcific tendinitis of the rotator cuff Impression: 1. Distal clavicular fracture located about 2 centimeters medial to the acromioclavicular joint. Not significantly displaced. No additional fractures 2. The glenohumeral and acromioclavicular joints appear intact. 3. Abnormal soft tissue calcifications near the greater and lesser trochanters probably calcific tendinitis of the rotator cuff. 4. Axillary calcifications are vascular calcification Dictated by Jorge Locke MD @ 09/14/2024 1:46:47 PM (Electronically Signed)
--- NOTE | 2024-09-14 12:57 | CRLHL7_ITS ---
For Patients: As a result of the Century Cures Act, medical imaging exams and procedure reports are released immediately into your electronic medical record. You may view this report before your referring provider. If you have questions, please contact your health care provider. Indication: Right anterior chest pain, fall Comparison: Single-view chest April 22, 2023 Technique: PA and lateral views of the chest Findings: There is moderate emphysematous changes with hyperinflation and chronic interstitial change. There is basilar atelectasis and parenchymal scar. There is no pneumothorax or pleural effusion. The cardiomediastinal silhouette is within normal limits. The bony thorax is grossly intact. Impression: Moderate emphysematous changes of the bilateral kamila thoraces without evidence of acute cardiopulmonary abnormality. Dictated by Cameron Higuera MD @ 09/14/2024 1:46:24 PM (Electronically Signed)
--- NOTE | 2024-09-14 12:57 | CRLHL7_ITS ---
For Patients: As a result of the Century Cures Act, medical imaging exams and procedure reports are released immediately into your electronic medical record. You may view this report before your referring provider. If you have questions, please contact your health care provider. INDICATION: FALL. 09/13/24 TECHNIQUE: CT of the head was performed without IV contrast. COMPARISON: 12/26/2022. FINDINGS: Parenchyma: No acute hemorrhage, infarction, or mass. Moderate confluent periventricular white matter hypoattenuation is nonspecific and is favored to represent chronic small vessel ischemic disease. Ventricles and extra-axial spaces: Moderate involutional changes. Visualized paranasal sinuses: Clear. Mastoid air cells: Chronic appearing deformity of the left mastoid air cells is again seen with partial opacification, which may relate to sequela of chronic mastoiditis. Bones: Redemonstration of postsurgical changes of the medial and inferior left orbit. Additional comment: Bilateral lens surgery. IMPRESSION: 1. No acute intracranial abnormality. 2. Chronic appearing deformity of the left mastoid air cells is again seen with partial opacification, which may relate to sequela of chronic mastoiditis. Please note that all CT scans at this facility use dose modulation, iterative reconstruction, and/or weight-based dosing when appropriate to reduce radiation dose to as low as reasonably achievable. Dictated by Juan Quinonez MD @ 09/14/2024 1:44:00 PM (Electronically Signed)
--- NOTE | 2024-09-14 12:57 | CRLHL7_ITS ---
For Patients: As a result of the Century Cures Act, medical imaging exams and procedure reports are released immediately into your electronic medical record. You may view this report before your referring provider. If you have questions, please contact your health care provider. INDICATION: FALL. 09/13/24. TECHNIQUE: CT of the cervical spine was performed without intravenous contrast. COMPARISON: None. FINDINGS: Alignment: Straightening of the normal cervical lordosis. Vertebrae: Vertebral bodies and posterior elements are intact without acute fracture. [id number] degenerative changes. Extra-vertebral soft tissues: Normal. Visualized brain: Normal. Additional comment: Mild paraseptal emphysema. IMPRESSION: No acute displaced fracture or malalignment of the cervical spine. Please note that all CT scans at this facility use dose modulation, iterative reconstruction, and/or weight-based dosing when appropriate to reduce radiation dose to as low as reasonably achievable. Dictated by Juan Quinonez MD @ 09/14/2024 1:36:36 PM (Electronically Signed)
--- OUTSIDE RECORDS SUMMARY | 2024-09-14 13:32 | XMS_ITS | Clinical Summary ---
Author Organization [facility] Address [address] [place] [id number] Care Team Providers Care Copier Field Service Technician Name Role Phone Amena Tate Primary Care Provider [phone] Allergies Active Allergy Reactions Criticality Noted Date [...] Immunization Administration Dates Next Due COVID-19 vaccine ([employer] 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
[2024-09-14 13:59] LABS: Basophils Absolute Auto 0.01 K/uL (0.00-0.30); Basophils Percent Auto 0.1 % (0.0-3.0); Eosinophils Absolute Auto 0.01 K/uL (0.00-0.50); Eosinophils Percent Auto 0.1 % (0.0-7.0); Hematocrit 45.5 % (33.0-51.0); Hemoglobin* 14.8 gm/dL (12.0-16.0); Immature Granulocytes Abs Auto 0.01 K/uL (0.00-0.30); Immature Granulocytes Pct Auto 0.1 %; Lymphocytes Percent Auto 9.9 % (20-44); Mean Corpuscular HGB Conc 33 gm/dL (32-36); Mean Corpuscular Hemoglobin 33 pg (26-34); Mean Corpuscular Volume 101 fL (80-100); Neutrophils Percent Auto 84.8 % (42.0-72.0); Platelet Count* 148 K/uL (140-440); RDW Coefficient of Variation % 13.9 % (11.5-15.5); Red Blood Count 4.52 m/uL (4.00-5.20); White Blood Count* 7.54 K/uL (4.50-11.00)
[2024-09-14 14:05] LABS: Albumin* 4.2 g/dL (3.3-5.0); Chloride* 100 mmol/L (96-114); Potassium* 3.6 mmol/L (3.6-5.1); Slide Review Reflex No; Sodium* 140 mmol/L (135-149)
[2024-09-14 14:08] LABS: Alanine Aminotransferase* 15 U/L (4-35); Alkaline Phosphatase* 79 U/L (40-150); Anion Gap 8 mEq/L (7-15); Aspartate Amino Transferase* 29 U/L (12-35); Bilirubin Direct* 0.3 mg/dL (0.0-0.5); Bilirubin Total* 1.7 mg/dL (0.1-1.5); Blood Urea Nitrogen* 17 mg/dL (7-30); Calcium* 9.3 mg/dL (8.4-10.6); Carbon Dioxide* 32 mmol/L (20-32); Creatinine* 0.7 mg/dL (0.5-1.5); Est. Creatinine Clearance* 39.59; Estimated Glomerular Filt Rate 90 ml/min; Glucose* 96 mg/dL (60-115); Total Protein* 7.2 g/dL (6.0-8.3)
[2024-09-14 14:09] LABS: Creatine Kinase* 43 U/L (41-117)
[2024-09-14 14:23] LABS: INR 0.98 (0.91-1.10); Prothrombin Time 13.8 Seconds
[2024-09-14 14:24] LABS: Partial Thromboplastin Time* 25 Seconds (23-33)
[2024-09-14 14:53] LABS: Ammonia* < 8.7 umol/L (13.1-30.0)
[2024-09-14 14:55] VITALS: BP 165/85; PULSE 81; RESP 16; O2SAT 94
== END 2024-09-14 15:10 | disposition home or self-care (01) ==
PROVIDERS: Emergency Provider Family Medicine
DX: S42.031A Displaced fracture of lateral end of right clavicle, initial encounter for closed fracture (principal); W18.30XA Fall on same level, unspecified, initial encounter
CPT/HCPCS: 36415; 70450; 71046; 72125; 73030; 80048; 80076; 82140; 82550; 85025; 85610; 85730; 99283; 99284; 99285

== ENCOUNTER 2024-11-06 12:09 | Emergency (ER) | payer MEDICARE, BC, SELFPAY ==
--- OUTSIDE RECORDS SUMMARY | 2011-06-19 03:00 | XMS_ITS | Continuity of Care Document ---
Author Organization [facility] Address [address] [address] [place] [address] Phone Care Team Providers Care Hr Receptionist Name Role Phone Lali CARRENO, Charly Unavailable Unavailable Procedures Procedure Date Ugi Endo; W/us Guid Asp/bx Ugi Endo; W/endo Untrasound Ex 10 Ugi Endo; W/endo Untrasound Ex 09 Offic/outpt E&m Estab Mod-hi 2 08 Ugi Endo; W/us Guid Asp/bx Advance Directives Directive Yes / No Effective Date File Name No Information Encounters Encounter Description Practice Location Reason(s) For Visit Diagnoses Date Provider Providers Copied on Encounter [facility], [address] [address], [place], [place], [id number], [phone] [facility] No Information 2 Lali Parks. [address] [place] [address], [id number] , [place]. [phone] Referring Provider: Jacob Borrero MD, [address] [place] [address], [id number]. tel:[phone] [facility], [address] [address], [place], [place], [id number], tel:[phone] [facility] No Information 0 Lali Parks. [address] [place] [address], [id number] , . [phone] Referring Provider: Jacob Borrero MD, [address] [place] [address], [address]. tel:[phone] [facility], [address] [address], [place], [place], [id number], tel:[phone] [facility] No Information 9 Lali Parks. [address] [facility], [facility] [address], [place], [place], [id number] , [place]. [phone] Referring Provider: Charly Escalera MD, [address] [facility] [address], [place], [address] . tel:[phone] Offic/outpt E&m Estab Mod-hi 2 [facility], [address] [address], [place], [place], [id number], tel:[phone] [facility] No Information 8 Lali Parks. [address] [facility], [facility] [address], [place], [place], [id number] , [place]. tel:[phone] Referring Provider: Jacob Borrero MD, [address] [place] [address], [id number]. tel:[phone] [facility], [address] [address], [place], [id number], tel:[phone] [facility] No Information 8 Lali Parks. [address] [place] [address], [facility] [address], [place], [id number] , . tel:[phone] Referring Provider: Jacob Borrero MD, [address] [place] [address], [address]. tel:[phone] Family History Family Member Type Diagnosis Age At Onset No Information Payers Payer name Insurance type Covered democrat ID Authoriza tion(s) [employer] [id number] Social History Type Description Quantity Date Captured Comments Sex Female Smoking Status No Information Chief Complaint And Reason For Visit No Information Reason For Referral Reason For Referral No Information History Of Present Illness Encounter Date Complaint History Of Prese nt Illness No Information Functional Status Date Functional Assessmen t No Information Instructions Date Instruction Additional Infor mation No Information Assessments Type Assessment Date No Information Patient Care Teams Name Effective Dates (start - stop) Status Members No Information
--- OUTSIDE RECORDS SUMMARY | 2011-06-19 03:00 | XMS_ITS | Continuity of Care Document ---
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 [address] [place] [address], [id number] , [place]. [phone] Referring Provider: Jacob Borrero MD, [address] [place] [address], [address]. tel:[phone] [facility], [address] [address], [place], [place], [id number], tel:[phone] [facility] No Information 0 Lali Parks. [address] [place] [address], [id number] , . [phone] Referring Provider: Jacob Borrero MD, [address] [place] [address], [address]. tel:[phone] [facility], [address] [address], [place], [place], [id number], tel:[phone] [facility] No Information 9 Lali Parks. [address] [facility], [facility] [address], [place], [place], [id number] , [place]. [phone] Referring Provider: Charly Escalera MD, [address] [facility] [address], [place], [address] . tel:[phone] Offic/outpt E&m Estab Mod-hi 2 [facility], [address] [address], [place], [place], [id number], tel:[phone] [facility] No Information 8 Lali Parks. [address] [facility], [facility] [address], [place], [place], [id number] , [place]. tel:[phone] Referring Provider: Jacob Borrero MD, [address] [place] [address], [address]. tel:[phone] [facility], [address] [address], [place], [id number], tel:[phone] [facility] No Information 8 Lali Parks. [address] [place] [address], [facility] [address], [place], [id number] , . tel:[phone] Referring Provider: Jacob Borrero MD, [address] [place] [address], [address]. tel:[phone] Family History Family Member Type Diagnosis Age At Onset No Information Payers Payer name Insurance type Covered republican ID Authoriza tion(s) [employer] [id number] Social History Type Description Quantity Date Captured [...]
--- OUTSIDE RECORDS SUMMARY | 2024-11-06 12:11 | XMS_ITS | Clinical Summary ---
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 Gender Identity Not on file Sexual Orientation [...] age 12+ 1959 Hepatitis C screening for age 18-79 11/11/1965 Zoster (shingles) series for age 50+ (2 of 3) 03/15/2011 01/18/2011 DEXA/DXA scan for age 65+ 11/11/2012 09/02/2007 Medicare Wellness for age 65+ 11/11/2012 Tetanus booster 01/18/2021 01/18/2011, 12/11/2005 RSV vaccine for adults or (1 - 1-dose 75+ series) 11/11/2022 BMI (ht and wt on same day) for age 18+ 11/03/2023 11/02/[address] (for lung CA) age 50-80 12/27/2023 12/26/2022 COVID-19 vaccine series ( season) 2023 07/24/2020, 07/03/2020 Influenza Vaccine (#1) 2024 4, 02/23/2013, 01/24/2012, Additional history exists Pneumococcal series for age 50+ Completed 10/21/2023, 01/18/2011, 11/16/2010, Additional history exists Hepatitis B series for 19+ Aged Out N o longer eligible based on patient's age to complete this topic Procedures Procedure Name Priority Date/Time Associated Diagnosis [...] a result of the Cures Act, medical imaging exams and procedure [...] Most Recently Relevant to Health Maintenance Insurance MEDICARE PART B HB ONLY MEDICARE PART B HB ONLY [employer] [place] BLUE MR PB ONLY [employer] [place] BLUE HB ONLY Advance Directives Documents on File Type Date 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
[2024-11-06 12:38] VITALS: BP 138/71; PULSE 82; RESP 18; TEMP 36.3; O2SAT 95; BMI 19.0
--- NOTE | 2024-11-06 12:57 | CRLHL7_ITS ---
For Patients: As a result of the Cures Act, medical imaging exams and procedure reports are released immediately into your electronic medical record. You may view this report before your referring provider. If you have questions, please contact your health care provider. INDICATION: Fall, injury, pain COMPARISON: None. TECHNIQUE: Three views right wrist. FINDINGS: There is a transverse fracture of the right distal radius. The fracture is dorsally displaced by 5 millimeters and impacted by 4 millimeters. There is a nondisplaced ulnar styloid fracture. There is also a nondisplaced radial styloid fracture. The radial articular surface is not appear to be disrupted. Normal radiocarpal and radioulnar alignment. Diffuse osteoarthritis. Multifocal ligamentous and soft tissue calcifications. Soft tissue swelling. No foreign body. IMPRESSION: Impacted and displaced right distal radial fracture. Nondisplaced right radial styloid and ulnar styloid fractures. Dictated by Juju Mcdowell MD @ 11/06/2024 2:07:44 PM (Electronically Signed)
--- NOTE | 2024-11-06 12:57 | ED.FALL ---
HPI - Fall General Chief Complaint: Fall/Minor Trauma Stated Complaint: right wrist fall Time Seen by Provider: 11/06/24 12:10 History of Present Illness HPI Narrative: This 78-year-old female comes in with her because of an injury to her right wrist. About 5 hours prior to arrival she fell onto her right wrist and has pain and swelling in this area. She does not report any other injury from this fall. She did not hit her head or have loss of consciousness. She is not on anticoagulants. She has had some occasional falls due to weakness and states that that was the mechanism by which she fell today. Related Data Home Medications ?Medication ?Instructions ?Recorded ?Confirmed atorvastatin 20 mg tablet 20 mg PO QPM 04/19/23 09/14/24 cyanocobalamin (vitamin B-12) 1,000 mcg PO DAILY 04/19/23 09/14/24 1,000 mcg tablet mirtazapine 7.5 mg tablet 7.5 mg PO QPM 04/19/23 09/14/24 Previous Rx's ?Medication ?Instructions ?Recorded acetaminophen 325 mg tablet 650 mg (2 x 325 mg) PO Q6H PRN 04/25/23 #100 tabs ipratropium 0.5 mg-albuterol 3 mg 3 ml inhalation Q6H #120 mL 04/25/23 (2.5 mg base)/3 mL nebulization soln melatonin 3 mg tablet 3 mg PO HS PRN #30 tabs 04/25/23 multivitamin with folic acid 400 1 tab PO DAILY #30 tabs 04/25/23 mcg tablet (Thera) nicotine 14 mg/24 hr daily 1 patch transdermal Q24H #28 ea 04/25/23 transdermal patch oxycodone 5 mg tablet 5 mg PO Q4H PRN #30 tabs 04/25/23 rivaroxaban 10 mg tablet (Xarelto) 10 mg PO DAILY #30 tabs 04/25/23 sennosides 8.6 mg tablet (Senna 17.2 mg (2 x 8.6 mg) PO BID PRN 04/25/23 Lax) constipation #100 tabs Allergies Allergy/AdvReac Type Severity Reaction Status Date / Time No Known Drug Allergies Allergy Verified 11/06/24 12:37 Review of Systems Status of ROS: Reports: 10 or more systems reviewed and unremarkable except as noted in History and below Narrative: Constitutional: No fevers, no weight gain or loss. Eyes: No discharge. No vision changes. HENT: No congestion, no sore throat, no ear pain. Cardiovascular: No chest pain, no palpitations. Respiratory: No shortness of breath, no wheezes, no cough. Gastrointestinal: No abdominal pain, no vomiting, no diarrhea. Genitourinary: No dysuria, no hematuria. Musculoskeletal: Right wrist pain and swelling. Skin: No rashes, no pruritis. Neurological: No dizziness, weakness, sensory change, speech change. Endo/Heme/Allergies: No bruising or bleeding. No polydipsia. Pysch: no suicidality, no anxiety, no insomnia. All other systems reviewed and are negative. [facility] Medical History Discharge planning issues ?Z02.9 - Encounter for administrative examinations, unspecified (ICD-10) Delirium ?R41.0 - Disorientation, unspecified (ICD-10) Atelectasis ?J98.11 - Atelectasis (ICD-10) Acute respiratory failure ?J96.00 - Acute respiratory failure, unspecified whether with hypoxia or hypercapnia (ICD-10) Unstable gait ?R26.81 - Unsteadiness on feet (ICD-10) Weight loss ?R63.4 - Abnormal weight loss (ICD-10) Malnutrition ?E46 - Unspecified protein-calorie malnutrition (ICD-10) Closed fracture of first metacarpal bone of left hand ?S62.202A - Unspecified fracture of first metacarpal bone, left hand, initial encounter for closed fracture (ICD-10) Transient ischemic attack ?G45.9 - Transient cerebral ischemic attack, unspecified (ICD-10) Cyst and pseudocyst of pancreas ?K86.2 - Cyst of pancreas (ICD-10) ?K86.3 - Pseudocyst of pancreas (ICD-10) Hyperlipidemia ?E78.5 - Hyperlipidemia, unspecified (ICD-10) Tobacco dependence ?F17.200 - Nicotine dependence, unspecified, uncomplicated (ICD-10) Alcohol dependence ?F10.20 - Alcohol dependence, uncomplicated (ICD-10) Essential hypertension ?I10 - Essential (primary) hypertension (ICD-10) Major depressive disorder ?F32.9 - Major depressive disorder, single episode, unspecified (ICD-10) Folic acid deficiency ?E53.8 - Deficiency of other specified B group vitamins (ICD-10) Vitamin B12 deficiency ?E53.8 - Deficiency of other specified B group vitamins (ICD-10) Vitamin B12 deficiency ?E53.8 - Deficiency of other specified B group vitamins (ICD-10) Constipation ?K59.00 - Constipation, unspecified (ICD-10) Constipation ?K59.00 - Constipation, unspecified (ICD-10) Failure to thrive Hypomagnesemia ?E83.42 - Hypomagnesemia (ICD-10) Cerebral infarction ?I63.9 - Cerebral infarction, unspecified (ICD-10) Surgical History Status post breast lumpectomy ?Z98.890 - Other specified postprocedural states (ICD-10) History of colonoscopy ?Z98.890 - Other specified postprocedural states (ICD-10) H/O tubal ligation ?Z98.51 - Tubal ligation status (ICD-10) Family History Father Cancer Heart disease High blood pressure Mother Heart disease High blood pressure Osteoporosis Stroke Social History What is your current living situation?: I presently have a place to live Problems where you live: no known problems Problems where you live details: na In the past 12 months, utilities in danger of being shut off: no In past 12 months, lack of transportation kept you from medical appts, meetings, work, or getting things needed for daily living: no In the past 12 mos, have been you worried that your food would run out before you had money to buy more?: never true In the past 12 mos, the food you bought just didn't last and you didn't have money to buy more?: never true Smoking Status: Current every day smoker What tobacco products do you use: cigarettes Smoking packs per day: 1 Smoking cigarettes per day: 20.0 Do you use any of these nicotine containing products: None Second hand tobacco smoke exposure: No How often do you have a drink containing alcohol: 4 or more times a week How many standard drinks containing alcohol do you have on a typical day: 1 or 2 AUDIT-C Alcohol total score: 4 Non-prescribed substance use: denies use Caffeine: No How often does anyone, including family, friends and others, physically hurt you: never How often does anyone, including family, friends and others, insult or talk down to you: never How often does anyone, including family, friends and others, threaten you with harm: never How often does anyone, including family, friends and others, scream or curse at you: never service: No Exam Narrative: Exam Narrative: Constitutional: Well-developed, well-nourished, no acute distress. HEENT: Normocephalic, atraumatic. Neck: Normal range of motion. Nontender. Supple. Heart: Intact distal pulses. Lungs: No chest discomfort. No wheezes, rhonchi, or rales. Abdomen: Nontender. Back: Normal range of motion. Extremities: Diffuse swelling of the right wrist with some bruising. No skin injury. Skin: Intact. No rash. Warm. No erythema or pallor. Neurologic: No altered sensation. No weakness. Alert and oriented. Psychiatric: No suicidality. No anxiety or depression. No insomnia. Nursing notes and vitals signs are reviewed. Const: Vital Signs, click to edit/add: Vital Signs - 24 hr 11/06/24 12:38 Temperature 97.3 F L Pulse Rate [Pulse Oximeter] 82 Respiratory Rate 18 Blood Pressure [Le ft Upper Arm] 138/71 Pulse Oximetry 95 Oxygen Delivery Me thod Room Air Course Vital Signs Vital signs: Initial Vital Signs Temperature 97.3 F L 11/06/24 12:38 Temperature Source Temporal Artery Scan 11/06/24 12:38 Pulse Rate 82 11/06/24 12:38 Respiratory Rate 18 11/06/24 12:38 Blood Pressure 138/71 11/06/24 12:38 Blood Pressure Mean 93 11/06/24 12:38 Pulse Oximetry 95 11/06/24 12:38 Oxygen Delivery Method Room Air 11/06/24 12:38 Vital Signs Temperature 97.3 F L 11/06/24 12:38 Pulse Rate 82 11/06/24 12:38 Respiratory Rate 18 11/06/24 12:38 Blood Pressure 138/71 11/06/24 12:38 Pulse Oximetry 95 11/06/24 12:38 Oxygen Delivery Method Room Air 11/06/24 12:38 Temperature 97.3 F L 11/06/24 12:38 Pulse Rate 82 11/06/24 12:38 Respiratory Rate 18 11/06/24 12:38 Blood Pressure 138/71 11/06/24 12:38 Pulse Oximetry 95 11/06/24 12:38 Oxygen Delivery Method Room Air 11/06/24 12:38 MDM - Fall MDM Narrative Medical decision making narrative: This patient comes in with an injury to her right wrist. X-ray images show evidence of a fracture of the distal radius and ulnar styloid. There is some angulation and impaction of the fracture. I did apply a hematoma block using 1% lidocaine which brought some relief to her symptoms. I placed a splint over the volar and dorsal aspect of her right forearm and wrist using Ortho Glass material. I did apply some pressure to improve the alignment. Advised the patient to follow-up with orthopedic clinic for ongoing management. Imaging Data XR R Wrist: Radiologist's impression: Impacted and displaced right distal radial fracture. Nondisplaced right radial styloid and ulnar styloid fractures. Discharge Plan Discharge Clinical Impression: Fracture of wrist Patient Disposition: Home, Self-Care Condition: Stable Additional Instructions: Wear splint and use [id number] medicines as needed and directed. Follow-up with orthopedic clinic for ongoing management. Call [phone] for appointment. Prescriptions: No Action atorvastatin 20 mg tablet 20 mg PO QPM cyanocobalamin (vitamin B-12) 1,000 mcg tablet 1,000 mcg PO DAILY mirtazapine 7.5 mg tablet 7.5 mg PO QPM nicotine 14 mg/24 hr Patch 24 Hour 1 patch transdermal Q24H Qty: 28 0RF ipratropium-albuterol 0.5 mg-3 mg(2.5 mg base)/3 mL Solution For Nebulization 3 ml inhalation Q6H Qty: 120 0RF multivitamin with folic acid [Thera] 400 mcg Tablet 1 tab PO DAILY Qty: 30 0RF sennosides [Senna Lax] 8.6 mg Tablet 17.2 mg PO BID PRN (Reason: constipation) Qty: 100 0RF oxycodone 5 mg Tablet 5 mg PO Q4H PRNQty: 30 0RF Xarelto 10 mg Tablet 10 mg PO DAILY Qty: 30 0RF acetaminophen 325 mg Tablet 650 mg PO Q6H PRNQty: 100 0RF melatonin 3 mg Tablet 3 mg PO HS PRNQty: 30 0RF Follow Up/Referrals: Provider,Not a Local [Primary Care Provider, Family Practice] Stand Alone Forms: [facility] Info Instructions
== END 2024-11-06 14:54 | disposition home or self-care (01) ==
PROVIDERS: Emergency Provider Emergency Medicine Emergency Medical Services
DX: S52.111A Torus fracture of upper end of right radius, initial encounter for closed fracture (principal); S52.614A Nondisplaced fracture of right ulna styloid process, initial encounter for closed fracture; S52.514A Nondisplaced fracture of right radial styloid process, initial encounter for closed fracture; W19.XXXA Unspecified fall, initial encounter
CPT/HCPCS: 29125; 73110; 99283; 99284